=== PATIENT | male | born 1955 | race Caucasian/White ===

== ENCOUNTER 2017-04-06 10:56 | Outpatient (CLI) | payer OTHER ==
[2017-04-06 12:11] LABS: Hematocrit 49.6 % (42.0-52.0); Mean Platelet Volume 8.8 fL (7.4-10.4); Red Blood Cell (RBC) Count 4.98 mill/uL (4.70-6.10); White Blood Cell (WBC) Count 12.9 thou/uL (4.8-10.8)
[2017-04-06 12:17] LABS: PTT 29.1 SEC (22.9-36.1); Prothrombin Time 12.7 SEC (12.0-14.7)
[2017-04-06 12:49] LABS: Anion Gap 13 mmol/L (10-20); BUN (Urea Nitrogen) 13 mg/dL (8.4-25.7); Calc. Creatinine Clearance 0 mL/min (70-130); Calcium 9.9 mg/dL (7.8-10.44); Carbon Dioxide 27 mmol/L (23-31); Chloride 106 mmol/L (98-107); Estimated GFR-MDRD Greater than 90
[2017-04-06 13:01] LABS: Bilirubin Negative (Negative); Blood, Urine Negative (Negative); Glucose, Urine (Dipstick) Negative (Negative); Ketone, Urine Negative (Negative); Nitrite Negative (Negative); Protein, Urine (Dipstick) Negative (Neg-Trace); Urobilinogen 0.2 mg/dL (0.2-1.0)
[2017-04-06 13:18] LABS: Bacteria/HPF None Seen HPF (None Seen); Hyaline Casts/LPF 0-3 HYALINE CAST LPF (0-3 Hyaline); RBC/HPF 0-3 HPF (0-3); Squamous Epithelial None Seen HPF (0-3); WBC/HPF 0-3 HPF (0-3)
== END 2017-04-06 10:57 | disposition home or self-care (01) ==
LOC: LABBT 10:56
PROVIDERS: ATTEND Urology
DX: Z01.818 Encounter for other preprocedural examination (principal); N20.0 Calculus of kidney
CPT/HCPCS: 80048; 81001; 85027; 85610; 85730; 87086

== ENCOUNTER 2017-04-18 10:30 | Day surgery (SDC) | payer OTHER ==
[2017-04-06 11:13] VITALS: BMI 19.3
[2017-04-18] MEDS ORDERED: Levofloxacin 500 mg/D5W 100 ml Premix Bag ONE (12:18)
[2017-04-18] MEDS ORDERED: Iothalamate Meglumine 60% 50 ML VIAL FS ONE (12:22)
[2017-04-18] MEDS ORDERED: Fentanyl 100 MCG/2 ML VIAL ONE (13:32)
[2017-04-18] MEDS ORDERED: Midazolam HCl 2 mg/2 ml Vial ONE (13:32)
[2017-04-18] MEDS ORDERED: Phenazopyridine HCl 97.5 MG TABLET ONE (15:00)
[2017-04-18] MEDS ORDERED: Lidocaine 1% PF 5 ML VIAL ONE (15:15)
[2017-04-18] MEDS ORDERED: Ondansetron HCl/PF 4 MG/2 ML Vial ONE (15:15)
[2017-04-18] MEDS ORDERED: PHENYLEPHRINE-NS 100 MCG/ML 10 ML SYRINGE ONE (15:15)
[2017-04-18] MEDS ORDERED: Dexamethasone 20 MG/5 ML VIAL ONE (15:15)
[2017-04-18] MEDS ORDERED: Propofol 200 MG/20 ML VIAL ONE (15:15)
[2017-04-18] MEDS ORDERED: Hydrocortisone Sod Succ/PF 100 mg/2 ml Vial ONE (15:15)
[2017-04-18] MEDS ORDERED: Ketorolac Tromethamine 30 MG/ML VIAL ONE (15:15)
--- NOTE | 2017-04-18 15:36 | RAD ---
RETROGRADE UROGRAM: Date: 04-18-17 History: Ureteroscopy. History of renal calculi. FINDINGS/IMPRESSION: Single AP fluoroscopic image of the abdomen is provided. A left ureteral stent is noted in place with the proximal portion overlying the expected location of the left renal collecting system and distal portion overlying the expected location of the urinary bladder. No suspicious calcifications are seen on this fluoroscopic image. Surgical clips overlie the right upper quadrant. Correlation with intrao perative findings is recommended. POS: LORNA
[2017-04-18] MEDS ORDERED: HYDROcodone/Acetaminophen 5/325 mg Tablet ONE (16:33)
--- NOTE | 2017-04-18 19:38 | OP ---
DATE OF PROCEDURE: 04/18/2017 SERVICE: Urology. SURGEON: Jaret Fuentes M.D. POSTOPERATIVE DIAGNOSIS: Left renal stone. POSTOPERATIVE DIAGNOSIS: Left renal stone. PROCEDURE PERFORMED: Cystoscopy with left ureteroscopy, laser lithotripsy of stone, basket extractio n of stone, placement of a 6 x 26 double-J stent on the left. INDICATIONS FOR PROCEDURE: Mr. Pelaez is a 61-year-old white male with a history of nephrolithiasis. On CT, he has a nonobstructing 6 mm and 3 mm left renal stone. The 6 mm which would likely cause di fficulty with stone passage as such, he elected for prophylactic removal. Even though he is asymptom at at this time, risks and benefits of ureteroscopy were discussed and he has agreed to proceed for flores. DESCRIPTION OF PROCEDURE: After identification of his armband and verification of consent, the patie tammy was brought back to the operating room where he underwent general anesthesia with an LMA. He was then placed in dorsal lithotomy position and prepped and draped in usual sterile fashion. After appr opriate time out, lubricated 22-Irish rigid cystoscope was introduced per urethra into the bladder. Attention was turned to the left ureteral orifice which was cannulated with a 0.035 sensor wire up t o the level of the renal pelvis. The cystoscope was then removed leaving the sensor wire in place as a safety wire. A dual-lumen catheter was then placed over the sensor wire into the proximal ureter. A second Amplatz Super Stiff wire was then brought into the second lumen up to the level of the lucila al pelvis and then the dual lumen removed. The sensor wire was secured to the drapes as a safety wir e and an 11/13 x 46 cm ureteral access sheath was advanced over the Amplatz Super Stiff wire up to th e level of the proximal ureter. The inner cannula and the Super Stiff wire were then removed leaving the outer sheath and the sensor wire in place. A flexible digital ureteroscope was then passed thro ugh the ureteral access sheath to the level of the renal pelvis. A full pyeloscopy was performed and the stone could not be identified. On fluoroscopy, it appeared the stone was in the upper pole and under careful evaluation, there appeared to be a fairly narrow infundibulum in the upper pole leading to a small axel which was found to contain the stones in question. A 200 micron laser fiber was th en used to fragment the stone into small pieces and a 1.9 Irish 0 tip nitinol basket used to grasp t he fragments and bring them out for stone extraction. The remaining pieces were all around the 1 mm range or less. These were too small to grab with the basket and I felt that these should pass withou t much difficulty. A full pyeloscopy was performed that there did not appear to be any other signifi cant fragments of concern. As such, I felt this was reasonable for leaving a pullback ureteroscopy w as employed and no additional stones were found within the ureter. The ureteroscope and sheath were then removed and the rigid cystoscope was backloaded over the sensor wire back into the bladder. A 6 x 26 double-J stent was advanced over the sensor wire up to the level of the renal pelvis. The wire was then removed leaving a good curl in the pelvis and good curl in the bladder. The bladder was th en emptied and the cystoscope removed. The patient then awakened and taken to PACU for recovery in s table condition. COMPLICATIONS: None. ESTIMATED BLOOD LOSS: Minimal. RETAINED TUBES AND DRAINS: A 6 x 26 double-J stent on the left. SPECIMENS: Stone for stone analysis. DISPOSITION: The patient will be discharged home and follow up with me in approximately 1 week for c ystoscopy stent removal.
== END 2017-04-18 17:06 | disposition home or self-care (01) ==
LOC: SDC 10:30
PROVIDERS: ATTEND Urology
PROC: 0TF48ZZ Fragmentation in Left Kidney Pelvis, Via Natural or Artificial Opening Endoscopic (ICD-10-PCS; principal; 2017-04-18)
PROC: 0T778DZ Dilation of Left Ureter with Intraluminal Device, Via Natural or Artificial Opening Endoscopic (ICD-10-PCS; principal; 2017-04-18)
DX: N20.0 Calculus of kidney (principal); I10 Essential (primary) hypertension; I25.10 Atherosclerotic heart disease of native coronary artery without angina pectoris; L63.0 Alopecia (capitis) totalis; Z79.82 Long term (current) use of aspirin; Z79.899 Other long term (current) drug therapy; Z98.52 Vasectomy status; Z95.818 Presence of other cardiac implants and grafts; Z90.89 Acquired absence of other organs; Z90.49 Acquired absence of other specified parts of digestive tract; Z98.890 Other specified postprocedural states; Z87.442 Personal history of urinary calculi
CPT/HCPCS: 74420; 82365; 88300; C1758; C1769; J1100; J1720; J1885; J1956; J2001; J2250; J2405; J2704; J3010; Q9961

== ENCOUNTER 2017-06-14 09:20 | Outpatient (CLI) | payer OTHER | END 2017-06-14 09:21 | disposition home or self-care (01) | LOC: BICULT 09:20 | PROVIDERS: ATTEND Urology | DX: N20.0 Calculus of kidney (principal); N28.1 Cyst of kidney, acquired | CPT/HCPCS: 76770 ==

== ENCOUNTER 2020-01-10 01:54 | Emergency (ER) | payer MEDICARE, OTHER ==
[2020-01-10] MEDS ORDERED: Tranexamic Acid 1,000 MG/10 ML VIAL ONE (02:06)
[2020-01-10] MEDS ORDERED: Lidocaine 1% w/Epinephrine 1:100K 20 ML VIAL ONE (02:06)
== END 2020-01-10 02:55 | disposition home or self-care (01) ==
LOC: ERS 01:54
DX: L76.22 Postprocedural hemorrhage of skin and subcutaneous tissue following other procedure (principal); I10 Essential (primary) hypertension; Z79.82 Long term (current) use of aspirin; Z79.899 Other long term (current) drug therapy
CPT/HCPCS: 64450

== ENCOUNTER 2020-08-26 12:53 | Outpatient (CLI) | payer MEDICARE, OTHER ==
[2020-08-26] MEDS ORDERED: MD-Gastroview 120 ML BOT ONE (13:57)
== END 2020-08-26 12:54 | disposition home or self-care (01) ==
LOC: RAD 12:53
PROVIDERS: ATTEND Surgery
DX: K63.2 Fistula of intestine (principal)
CPT/HCPCS: 74280; Q9963

== ENCOUNTER 2020-09-30 10:19 | Outpatient (CLI) | payer MEDICARE, OTHER ==
[2020-09-30 11:15] LABS: #Monocytes 0.7 10x3/uL (0.0-1.1); #Neutrophils 12.2 10x3/uL (1.5-8.4); %Basophils 0.2 % (0.0-2.0); %Eosinophils 0.1 % (0.0-6.0); %Lymphocytes 6.5 % (18.0-47.0); %Monocytes 4.8 % (0.0-10.0); %Neutrophils 85.7 % (40.0-75.0); Hemoglobin 13.1 g/dL (13.5-17.5); Mean Corpuscular HGB CONC 31.3 g/dL (32.0-36.0); Mean Corpuscular Hemoglobin 28.6 pg (27.0-33.0); Mean Corpuscular Volume 91.3 fl (81.2-95.1); Mean Platelet Volume 9.8 fl (7.4-10.4); Platelet Count 246 10x3/uL (150-450); Red Blood Cell (RBC) Count 4.58 10x6/uL (4.32-5.72); White Blood Cell (WBC) Count 14.3 10x3/uL (3.5-10.5)
[2020-09-30 11:33] LABS: ALT (SGPT) 39 U/L (8-55); AST (SGOT) 32 U/L (5-34); Alkaline Phosphatase 77 U/L (40-110); Anion Gap 15 mmol/L (10-20); BUN (Urea Nitrogen) 22 mg/dL (8.4-25.7); Bilirubin, Total 0.8 mg/dL (0.2-1.2); Calc. Creatinine Clearance 0 mL/min (70-130); Calcium 9.5 mg/dL (7.8-10.44); Carbon Dioxide 23 mmol/L (23-31); Chloride 105 mmol/L (98-107); Globulin 2.4 g/dL (2.4-3.5); Glucose 98 mg/dL (80-115); Potassium 4.7 mmol/L (3.5-5.1); Protein, Total 6.4 g/dL (5.8-8.1); Sodium 138 mmol/L (136-145)
[2020-09-30 14:26] LABS: Hemoglobin A1c 5.4 % (4.0-6.0)
== END 2020-09-30 10:20 | disposition home or self-care (01) ==
LOC: LABBT 10:19
PROVIDERS: ATTEND Surgery
DX: Z01.818 Encounter for other preprocedural examination (principal); K60.4 Rectal fistula
CPT/HCPCS: 80053; 83036; 85025; 93005; 93010

== ENCOUNTER 2020-09-30 10:30 | Inpatient (IN) | payer MEDICARE, OTHER ==
[2020-10-05] MEDS ORDERED: cefOXitin Sodium/Dextrose 2 GM/50 ML BAG ONE ×2 (06:34→09:45)
[2020-10-05] MEDS ORDERED: Fentanyl 100 MCG/2 ML VIAL ONE ×5 (06:39→13:17)
[2020-10-05] MEDS ORDERED: Midazolam HCl 2 mg/2 ml Vial ONE (06:39)
[2020-10-05] MEDS ORDERED: Lidocaine 1% (PF) 30 ML VIAL ONE (06:40)
[2020-10-05] MEDS ORDERED: Lidocaine 2% Jelly 5 ML TUBE ONE (06:40)
[2020-10-05] MEDS ORDERED: Neomycin-Polymyxin 1 ML AMP ONE (06:47)
[2020-10-05] MEDS ORDERED: Bupivacaine HCl 0.5%/Epinephrine 1:200,000/PF 30 ml Vial ONE (07:53)
[2020-10-05] MEDS ORDERED: PROPOFOL 200 MG/20 ML VIAL ONE (07:53)
[2020-10-05] MEDS ORDERED: Rocuronium Bromide 10 MG/ML (10ML VIAL) ONE (07:53)
[2020-10-05] MEDS ORDERED: Ondansetron PF 4 MG/2 ML Vial ONE (07:53)
[2020-10-05] MEDS ORDERED: Lidocaine 1% PF 5 ML VIAL ONE (07:53)
[2020-10-05] MEDS ORDERED: ePHEDrine Sulfate 50 MG/10 ML VIAL ONE (07:53)
[2020-10-05] MEDS ORDERED: Glycopyrrolate 0.2 MG/ML 5 ML SYRINGE ONE (07:53)
[2020-10-05] MEDS ORDERED: Ondansetron HCl/PF 4 MG/2 ML Vial IVP PRN (10:46)
[2020-10-05] MEDS ORDERED: Promethazine HCl 25 MG/ML VIAL IM PRN ×2 (10:46→10:50)
[2020-10-05] MEDS ORDERED: Promethazine HCl 25 MG/ML VIAL IVPB PRN (10:46)
[2020-10-05] MEDS ORDERED: Ondansetron PF 4 MG/2 ML Vial IVP PRN (10:50)
[2020-10-05] MEDS ORDERED: hydrALAZINE 20 MG/ML VIAL SLOW IVP PRN (10:50)
[2020-10-05] MEDS ORDERED: metroNIDAZOLE 500 MG/100 ML BAG ONE (11:08)
[2020-10-05] MEDS ORDERED: Ketorolac Tromethamine 30 MG/ML VIAL IVP SCH (12:00)
[2020-10-05] MEDS ORDERED: Morphine 10 MG/ML VIAL SLOW IVP PRN (12:18)
[2020-10-05] MEDS ORDERED: Morphine 4 MG/ML VIAL ONE ×2 (13:17→17:30)
[2020-10-05] MEDS ORDERED: Ketorolac Tromethamine 30 MG/ML VIAL ONE (14:37)
[2020-10-05] MEDS: Sodium Chloride 0.9% 1,000 ML IV SCH ×2 (20:10→21:15)
[2020-10-05] MEDS: metroNIDAZOLE 500 MG in Premix Bag 1 BAG IVPB SCH ×2 (20:15→21:13)
[2020-10-05] MEDS: CEFAZOLIN 2 GM in Premix Bag 1 BAG IVPB SCH (20:30)
[2020-10-05] MEDS: Hydrocortisone Sod Succ/PF 100 mg/2 ml Vial IVP SCH (21:12)
[2020-10-05] MEDS: Famotidine 20 MG TAB PO SCH (21:14)
[2020-10-05] MEDS: Famotidine/PF 20 mg/2ml Vial SLOW IVP SCH (21:15)
[2020-10-05] MEDS: Morphine 4 MG/ML VIAL SLOW IVP PRN (21:20)
[2020-10-05] MEDS: Ketorolac Tromethamine 30 MG/ML VIAL IVP SCH (21:36)
[2020-10-06] MEDS: CEFAZOLIN 2 GM in Premix Bag 1 BAG IVPB SCH ×3 (01:54→08:59)
[2020-10-06] MEDS: metroNIDAZOLE 500 MG in Premix Bag 1 BAG IVPB SCH (01:54)
[2020-10-06 03:07] VITALS: BMI 19.3
[2020-10-06] MEDS: Ketorolac Tromethamine 30 MG/ML VIAL IVP SCH ×4 (03:08→21:18)
[2020-10-06] MEDS: Sodium Chloride 0.9% 1,000 ML IV SCH ×2 (04:59→15:25)
[2020-10-06] MEDS: Hydrocortisone Sod Succ/PF 100 mg/2 ml Vial IVP SCH ×3 (05:41→21:19)
[2020-10-06 05:50] LABS: #Lymphocytes 0.8 thou/uL (1.20-3.40); #Monocytes 1.2 thou/uL (0.11-0.59); %Basophils 0.2 % (0.0-1.0); %Eosinophils 0.1 % (0.0-10.0); %Lymphocytes 3.9 % (21.0-51.0); %Monocytes 5.8 % (0.0-10.0); %Neutrophils 90.1 % (42.0-75.0); Hemoglobin 11.3 g/dL (14.0-18.0); Mean Corpuscular HGB CONC 31.5 g/dL (32.0-36.0); Mean Corpuscular Hemoglobin 29.4 pg (27.0-31.0); Mean Corpuscular Volume 93.1 fL (78.0-98.0); Mean Platelet Volume 7.7 fL (7.4-10.4); Platelet Count 180 thou/uL (130-400); RBC Distribution Width 15.8 % (11.5-14.5); Red Blood Cell (RBC) Count 3.86 mill/uL (4.70-6.10); White Blood Cell (WBC) Count 19.9 thou/uL (4.8-10.8)
[2020-10-06 06:14] LABS: Anion Gap 15 mmol/L (10-20); BUN (Urea Nitrogen) 28 mg/dL (8.4-25.7); Calc. Creatinine Clearance 54 mL/min (70-130); Calcium 7.1 mg/dL (7.8-10.44); Carbon Dioxide 15 mmol/L (23-31); Chloride 114 mmol/L (98-107); Glucose 79 mg/dL (80-115); Potassium 4.3 mmol/L (3.5-5.1); Sodium 140 mmol/L (136-145)
[2020-10-06] MEDS: Amiodarone 200 MG TAB PO SCH (08:58)
[2020-10-06] MEDS: Ezetimibe 10 MG TAB PO SCH (08:58)
[2020-10-06] MEDS: Famotidine/PF 20 mg/2ml Vial SLOW IVP SCH ×2 (08:58→21:18)
[2020-10-06] MEDS: Carvedilol 3.125 MG TAB PO SCH ×2 (09:04→18:10)
[2020-10-06] MEDS ORDERED: Acetaminophen 325 MG TAB PO PRN (13:31)
[2020-10-06] MEDS: Enoxaparin Sodium 40 MG/0.4 ML SYRINGE SC SCH (13:53)
[2020-10-06] MEDS: Famotidine 20 MG TAB PO SCH ×2 (13:54→21:19)
[2020-10-06] MEDS: Morphine 4 MG/ML VIAL SLOW IVP PRN (16:41)
[2020-10-06] MEDS: Acetaminophen 325 MG TAB PO PRN (18:04)
[2020-10-06] MEDS ORDERED: Carvedilol 3.125 MG TAB PO SCH (18:15)
[2020-10-07] MEDS: Sodium Chloride 0.9% 1,000 ML IV SCH ×5 (01:41→20:50)
[2020-10-07] MEDS: Ketorolac Tromethamine 30 MG/ML VIAL IVP SCH ×4 (05:11→20:50)
[2020-10-07] MEDS: Hydrocortisone Sod Succ/PF 100 mg/2 ml Vial IVP SCH (05:12)
[2020-10-07 06:43] LABS: #Lymphocytes 0.6 thou/uL (1.20-3.40); #Monocytes 0.7 thou/uL (0.11-0.59); %Basophils 0.1 % (0.0-1.0); %Lymphocytes 3.3 % (21.0-51.0); %Monocytes 4.2 % (0.0-10.0); %Neutrophils 92.4 % (42.0-75.0); Hemoglobin 9.6 g/dL (14.0-18.0); Mean Corpuscular HGB CONC 32.5 g/dL (32.0-36.0); Mean Corpuscular Hemoglobin 30.5 pg (27.0-31.0); Mean Corpuscular Volume 93.8 fL (78.0-98.0); Mean Platelet Volume 7.8 fL (7.4-10.4); Platelet Count 161 thou/uL (130-400); RBC Distribution Width 15.8 % (11.5-14.5); Red Blood Cell (RBC) Count 3.14 mill/uL (4.70-6.10); White Blood Cell (WBC) Count 17.3 thou/uL (4.8-10.8)
[2020-10-07 07:04] LABS: ALT (SGPT) 32 U/L (8-55); AST (SGOT) 37 U/L (5-34); Albumin 2.6 g/dL (3.4-4.8); Alkaline Phosphatase 54 U/L (40-110); Anion Gap 14 mmol/L (10-20); BUN (Urea Nitrogen) 25 mg/dL (8.4-25.7); Bilirubin, Total 0.5 mg/dL (0.2-1.2); Calc. Creatinine Clearance 89 mL/min (70-130); Calcium 6.8 mg/dL (7.8-10.44); Carbon Dioxide 16 mmol/L (23-31); Chloride 115 mmol/L (98-107); Glucose 71 mg/dL (80-115); Protein, Total 4.6 g/dL (5.8-8.1); Sodium 141 mmol/L (136-145)
[2020-10-07] MEDS: Ezetimibe 10 MG TAB PO SCH ×2 (09:41→09:45)
[2020-10-07] MEDS: Carvedilol 3.125 MG TAB PO SCH ×2 (09:41→17:49)
[2020-10-07] MEDS: Amiodarone 200 MG TAB PO SCH (09:41)
[2020-10-07] MEDS: Famotidine 20 MG TAB PO SCH ×2 (09:41→20:50)
[2020-10-07] MEDS: Enoxaparin Sodium 40 MG/0.4 ML SYRINGE SC SCH (09:41)
[2020-10-07] MEDS: Famotidine/PF 20 mg/2ml Vial SLOW IVP SCH ×2 (09:42→20:48)
[2020-10-07] MEDS: Acetaminophen 325 MG TAB PO PRN ×2 (12:58→21:10)
[2020-10-07] MEDS: Hydrocortisone 10 mg Tablet PO SCH (20:50)
[2020-10-07] MEDS ORDERED: Hydrocortisone 10 mg Tablet PO SCH (21:00)
[2020-10-08] MEDS: Ketorolac Tromethamine 30 MG/ML VIAL IVP SCH ×4 (02:42→20:38)
[2020-10-08] MEDS: Amiodarone 200 MG TAB PO SCH (09:05)
[2020-10-08] MEDS: Carvedilol 3.125 MG TAB PO SCH ×2 (09:05→17:51)
[2020-10-08] MEDS: Ezetimibe 10 MG TAB PO SCH (09:05)
[2020-10-08] MEDS: Hydrocortisone 10 mg Tablet PO SCH (09:05)
[2020-10-08] MEDS: Famotidine 20 MG TAB PO SCH ×2 (09:05→20:38)
[2020-10-08] MEDS: Famotidine/PF 20 mg/2ml Vial SLOW IVP SCH ×2 (09:06→20:38)
[2020-10-08] MEDS: Enoxaparin Sodium 40 MG/0.4 ML SYRINGE SC SCH (09:06)
[2020-10-08] MEDS: Acetaminophen 325 MG TAB PO PRN ×2 (10:55→20:37)
[2020-10-08] MEDS: Sodium Chloride 0.9% 1,000 ML IV SCH ×3 (10:56→23:24)
[2020-10-08] MEDS: predniSONE 20 MG TAB PO SCH (17:48)
[2020-10-08] MEDS: HYDROcodone/Acetaminophen 5/325 mg Tablet PO PRN (20:41)
[2020-10-08] MEDS ORDERED: Hydrocortisone Sod Succ/PF 100 mg/2 ml Vial IVP SCH (21:00)
[2020-10-09] MEDS: Acetaminophen 325 MG TAB PO PRN ×2 (03:52→22:05)
[2020-10-09] MEDS: HYDROcodone/Acetaminophen 5/325 mg Tablet PO PRN ×4 (05:12→13:45)
[2020-10-09 06:08] LABS: #Lymphocytes 0.5 thou/uL (1.20-3.40); #Monocytes 0.5 thou/uL (0.11-0.59); #Neutrophils 9.7 thou/uL (1.40-6.50); %Lymphocytes 4.4 % (21.0-51.0); %Monocytes 4.2 % (0.0-10.0); %Neutrophils 91.4 % (42.0-75.0); Hemoglobin 8.5 g/dL (14.0-18.0); Mean Corpuscular HGB CONC 32.1 g/dL (32.0-36.0); Mean Corpuscular Hemoglobin 29.7 pg (27.0-31.0); Mean Corpuscular Volume 92.6 fL (78.0-98.0); Platelet Count 221 thou/uL (130-400); RBC Distribution Width 15.9 % (11.5-14.5); Red Blood Cell (RBC) Count 2.86 mill/uL (4.70-6.10); White Blood Cell (WBC) Count 10.6 thou/uL (4.8-10.8)
[2020-10-09] MEDS: Ezetimibe 10 MG TAB PO SCH (07:38)
[2020-10-09] MEDS: predniSONE 20 MG TAB PO SCH ×2 (07:38→16:48)
[2020-10-09] MEDS: Famotidine 20 MG TAB PO SCH ×2 (07:38→22:01)
[2020-10-09] MEDS: Carvedilol 3.125 MG TAB PO SCH ×2 (07:38→16:48)
[2020-10-09] MEDS: Amiodarone 200 MG TAB PO SCH (07:38)
[2020-10-09] MEDS: Enoxaparin Sodium 40 MG/0.4 ML SYRINGE SC SCH (09:09)
[2020-10-09] MEDS: Famotidine/PF 20 mg/2ml Vial SLOW IVP SCH ×2 (09:09→20:19)
[2020-10-09] MEDS: diphenhydrAMINE 50 MG/ML VIAL IVP PRN (15:42)
[2020-10-09] MEDS: Sodium Chloride 0.9% 1,000 ML IV SCH (16:49)
[2020-10-10] MEDS: Sodium Chloride 0.9% 1,000 ML IV SCH ×2 (01:05→10:27)
[2020-10-10] MEDS: HYDROcodone/Acetaminophen 5/325 mg Tablet PO PRN (05:55)
[2020-10-10] MEDS: predniSONE 20 MG TAB PO SCH ×2 (05:57→15:49)
[2020-10-10] MEDS: Acetaminophen 325 MG TAB PO PRN (06:05)
[2020-10-10] MEDS: Amiodarone 200 MG TAB PO SCH (09:56)
[2020-10-10] MEDS: Carvedilol 3.125 MG TAB PO SCH ×2 (09:56→15:50)
[2020-10-10] MEDS: Ezetimibe 10 MG TAB PO SCH (09:56)
[2020-10-10] MEDS: Famotidine 20 MG TAB PO SCH (09:56)
[2020-10-10] MEDS: Famotidine/PF 20 mg/2ml Vial SLOW IVP SCH ×2 (09:57→20:43)
[2020-10-10] MEDS: Enoxaparin Sodium 40 MG/0.4 ML SYRINGE SC SCH (10:28)
[2020-10-10] MEDS ORDERED: Acetaminophen 500 MG TAB PO PRN ×2 (11:32)
[2020-10-10] MEDS: Acetaminophen 500 MG TAB PO PRN ×2 (15:48→20:42)
[2020-10-10] MEDS ORDERED: Calcium Carbonate 500 MG ChewTAB PO PRN (18:05)
[2020-10-10] MEDS: Calcium Carbonate 500 MG ChewTAB PO PRN (18:13)
[2020-10-11] MEDS: Famotidine 20 MG TAB PO SCH ×3 (01:03→21:04)
[2020-10-11] MEDS: Acetaminophen 500 MG TAB PO PRN ×4 (05:53→21:03)
[2020-10-11] MEDS: predniSONE 20 MG TAB PO SCH ×2 (05:53→16:28)
[2020-10-11] MEDS: Calcium Carbonate 500 MG ChewTAB PO PRN ×2 (08:13→14:27)
[2020-10-11] MEDS: Amiodarone 200 MG TAB PO SCH (08:13)
[2020-10-11] MEDS: Carvedilol 3.125 MG TAB PO SCH ×2 (08:14→16:28)
[2020-10-11] MEDS: Ezetimibe 10 MG TAB PO SCH (08:15)
[2020-10-11] MEDS: Famotidine/PF 20 mg/2ml Vial SLOW IVP SCH ×2 (08:15→23:08)
[2020-10-11] MEDS: Enoxaparin Sodium 40 MG/0.4 ML SYRINGE SC SCH (08:22)
[2020-10-11 10:21] LABS: Anisocytosis SLIGHT = 6-15 cells (100X) (0-5/hpf); Band 4 % (5-11); Elliptocytes SLIGHT = 2-5 cells (100X) (0-1/hpf); Hemoglobin 10.1 g/dL (14.0-18.0); Lymphocytes 3 % (21-51); MDiff Complete? YES; Mean Corpuscular HGB CONC 33.2 g/dL (32.0-36.0); Mean Corpuscular Hemoglobin 30.5 pg (27.0-31.0); Mean Corpuscular Volume 91.9 fL (78.0-98.0); Mean Platelet Volume 7.7 fL (7.4-10.4); Metamyelocyte 1 % (0-0); Monocytes 3 % (0-10); Myelocyte 1 % (0-0); Neutrophil 88 % (42-75); Platelet Count 266 thou/uL (130-400); Platelet Morphology Comment Appears Adequate; Polychromasia SLIGHT = 2-3 cells (100X) (0-2/hpf); RBC Distribution Width 16.2 % (11.5-14.5); Red Blood Cell (RBC) Count 3.32 mill/uL (4.70-6.10); White Blood Cell (WBC) Count 16.9 thou/uL (4.8-10.8)
[2020-10-11 11:26] LABS: Anion Gap 13 mmol/L (10-20); BUN (Urea Nitrogen) 17 mg/dL (8.4-25.7); Calc. Creatinine Clearance 95 mL/min (70-130); Calcium 8.4 mg/dL (7.8-10.44); Carbon Dioxide 20 mmol/L (23-31); Chloride 110 mmol/L (98-107); Glucose 200 mg/dL (80-115); Potassium 3.4 mmol/L (3.5-5.1); Sodium 140 mmol/L (136-145)
[2020-10-11] MEDS ORDERED: Aspirin 81 mg Enteric Coated Tablet PO SCH (13:15)
[2020-10-11] MEDS ORDERED: Potassium Chloride 20 MEQ TAB PO SCH (13:15)
[2020-10-12 05:36] LABS: Hemoglobin 9.1 g/dL (14.0-18.0); Mean Corpuscular HGB CONC 31.5 g/dL (32.0-36.0); Mean Platelet Volume 7.9 fL (7.4-10.4); Platelet Count 285 thou/uL (130-400); RBC Distribution Width 16.6 % (11.5-14.5); Red Blood Cell (RBC) Count 3.15 mill/uL (4.70-6.10); White Blood Cell (WBC) Count 17.3 thou/uL (4.8-10.8)
[2020-10-12 05:49] LABS: Potassium 3.7 mmol/L (3.5-5.1)
[2020-10-12] MEDS: predniSONE 20 MG TAB PO SCH ×2 (06:10→16:29)
[2020-10-12] MEDS: Acetaminophen 500 MG TAB PO PRN ×4 (06:10→20:51)
[2020-10-12] MEDS: Famotidine/PF 20 mg/2ml Vial SLOW IVP SCH ×2 (08:01→20:51)
[2020-10-12] MEDS: Enoxaparin Sodium 40 MG/0.4 ML SYRINGE SC SCH (08:12)
[2020-10-12] MEDS: Amiodarone 200 MG TAB PO SCH (08:13)
[2020-10-12] MEDS: Famotidine 20 MG TAB PO SCH ×2 (08:13→20:51)
[2020-10-12] MEDS: Carvedilol 3.125 MG TAB PO SCH ×2 (08:13→16:28)
[2020-10-12] MEDS: Ezetimibe 10 MG TAB PO SCH (08:13)
[2020-10-12] MEDS: Aspirin 81 mg Enteric Coated Tablet PO SCH (08:13)
[2020-10-12] MEDS ORDERED: Iopamidol 370 76% 50 ML VIAL FS ONE (08:51)
[2020-10-12] MEDS ORDERED: Iopamidol-370 76% 500 ML 1 ML ONE (08:51)
[2020-10-12] MEDS ORDERED: Piperacillin/Tazobactam 3.375 GM in Sodium Chloride 0.9% 100 ML IVPB SCH ×3 (12:00→21:00)
[2020-10-12] MEDS ORDERED: Vancomycin HCl 25 MG/ML Oral PO SCH ×3 (14:30→18:00)
[2020-10-12] MEDS ORDERED: Sodium Chloride 0.9% 1,000 ML IV SCH (15:15)
[2020-10-12] MEDS ORDERED: Furosemide 20 MG/2 ML VIAL SLOW IVP SCH (16:15)
[2020-10-12 18:25] LABS: Bacteria/HPF None Seen HPF (None Seen); Bilirubin Negative (Negative); Blood, Urine Negative (Negative); Clarity Clear (Clear); Glucose, Urine (Dipstick) Normal (Negative); Ketone, Urine Negative (Negative); Leukocyte Negative Leu/uL (Negative); Nitrite Negative (Negative); Protein, Urine (Dipstick) Negative (Neg-Trace); RBC/HPF None Seen HPF (0-3); Specific Gravity, Urine 1.035 (1.002-1.036); Squamous Epithelial 0-3 HPF (0-3); Urobilinogen Normal mg/dL (Less than 2); WBC/HPF 0-3 HPF (0-3)
[2020-10-12 18:28] LABS: Urine Culture Reflex No No
[2020-10-12] MEDS: Morphine 2 MG/ML VIAL SLOW IVP PRN (19:36)
[2020-10-13] MEDS: Morphine 4 MG/ML VIAL SLOW IVP PRN (00:24)
[2020-10-13] MEDS ORDERED: Benzonatate 100 MG CAP PO PRN (00:38)
[2020-10-13 05:36] LABS: Anion Gap 14 mmol/L (10-20); BUN (Urea Nitrogen) 15 mg/dL (8.4-25.7); Calc. Creatinine Clearance 98 mL/min (70-130); Calcium 8.1 mg/dL (7.8-10.44); Carbon Dioxide 23 mmol/L (23-31); Chloride 104 mmol/L (98-107); Glucose 115 mg/dL (80-115); Potassium 3.6 mmol/L (3.5-5.1); Sodium 137 mmol/L (136-145)
[2020-10-13 05:51] LABS: Mean Corpuscular Hemoglobin 28.4 pg (27.0-31.0); Mean Corpuscular Volume 91.5 fL (78.0-98.0); Mean Platelet Volume 7.8 fL (7.4-10.4); Platelet Count 309 thou/uL (130-400); RBC Distribution Width 17.1 % (11.5-14.5); Red Blood Cell (RBC) Count 3.51 mill/uL (4.70-6.10); White Blood Cell (WBC) Count 17.7 thou/uL (4.8-10.8)
[2020-10-13] MEDS: Acetaminophen 500 MG TAB PO PRN ×3 (05:59→20:42)
[2020-10-13] MEDS: predniSONE 20 MG TAB PO SCH ×2 (06:00→18:21)
[2020-10-13 06:11] LABS: Band 11 % (5-11); Lymphocytes 7 % (21-51); MDiff Complete? YES; Monocytes 1 % (0-10); Neutrophil 81 % (42-75)
[2020-10-13] MEDS: Ezetimibe 10 MG TAB PO SCH (08:58)
[2020-10-13] MEDS: Amiodarone 200 MG TAB PO SCH (08:58)
[2020-10-13] MEDS: Famotidine 20 MG TAB PO SCH ×2 (08:58→20:42)
[2020-10-13] MEDS: Aspirin 81 mg Enteric Coated Tablet PO SCH (08:59)
[2020-10-13] MEDS: fentaNYL 50 mcg/hour Patch TD SCH (08:59)
[2020-10-13] MEDS: Carvedilol 3.125 MG TAB PO SCH ×2 (08:59→18:21)
[2020-10-13] MEDS: Morphine 2 MG/ML VIAL SLOW IVP PRN (10:29)
[2020-10-13] MEDS: Famotidine/PF 20 mg/2ml Vial SLOW IVP SCH ×2 (10:36→20:43)
[2020-10-13] MEDS ORDERED: Sodium Bicarbonate 2.5 MEQ/5 ML VIAL ONE (10:53)
[2020-10-13] MEDS ORDERED: Fentanyl 100 MCG/2 ML VIAL ONE (10:53)
[2020-10-13] MEDS ORDERED: Midazolam HCl 2 mg/2 ml Vial ONE (10:53)
[2020-10-13 12:58] LABS: RBC Count-Automated (BF) 795665 /cu.mm
[2020-10-13 13:07] LABS: BF Color Red; Body Fluid Source Peritoneal Fluid; Clarity Cloudy/Turbid (Clear); Tube # EDTA; WBC/Nucleated-Auto (BF) Greater than 51000 uL
[2020-10-13 14:57] LABS: BF Segmented Neutrophils 78 %; Cell Count Non Hematic 20 %; Lymphocytes 2 %
[2020-10-13] MEDS: Enoxaparin Sodium 40 MG/0.4 ML SYRINGE SC SCH (16:02)
[2020-10-14] MEDS: Acetaminophen 500 MG TAB PO PRN ×3 (03:19→17:40)
[2020-10-14 06:04] LABS: Hemoglobin 9.5 g/dL (14.0-18.0); Mean Corpuscular HGB CONC 32.3 g/dL (32.0-36.0); Mean Corpuscular Hemoglobin 30.4 pg (27.0-31.0); Mean Platelet Volume 7.8 fL (7.4-10.4); Platelet Count 303 thou/uL (130-400); Red Blood Cell (RBC) Count 3.12 mill/uL (4.70-6.10); White Blood Cell (WBC) Count 12.9 thou/uL (4.8-10.8)
[2020-10-14 06:20] LABS: Anion Gap 12 mmol/L (10-20); BUN (Urea Nitrogen) 18 mg/dL (8.4-25.7); Calc. Creatinine Clearance 108 mL/min (70-130); Carbon Dioxide 23 mmol/L (23-31); Chloride 104 mmol/L (98-107); Glucose 111 mg/dL (80-115); Potassium 3.7 mmol/L (3.5-5.1); Sodium 135 mmol/L (136-145)
[2020-10-14 06:23] LABS: Band 5 % (5-11); Lymphocytes 6 % (21-51); MDiff Complete? YES; Metamyelocyte 2 % (0-0); Monocytes 7 % (0-10); Neutrophil 80 % (42-75)
[2020-10-14] MEDS: predniSONE 20 MG TAB PO SCH ×2 (06:38→15:56)
[2020-10-14] MEDS: Carvedilol 3.125 MG TAB PO SCH ×2 (08:39→15:57)
[2020-10-14] MEDS: Aspirin 81 mg Enteric Coated Tablet PO SCH (08:40)
[2020-10-14] MEDS: Amiodarone 200 MG TAB PO SCH (08:40)
[2020-10-14] MEDS: Famotidine 20 MG TAB PO SCH ×2 (08:40→22:08)
[2020-10-14] MEDS: Famotidine/PF 20 mg/2ml Vial SLOW IVP SCH ×2 (08:42→22:08)
[2020-10-14] MEDS: Ezetimibe 10 MG TAB PO SCH (08:46)
[2020-10-14] MEDS: Enoxaparin Sodium 40 MG/0.4 ML SYRINGE SC SCH ×2 (09:24→09:39)
[2020-10-14] MEDS: Morphine 2 MG/ML VIAL SLOW IVP PRN (09:41)
[2020-10-14] MEDS ORDERED: Piperacillin/Tazobactam 3.375 GM in Sodium Chloride 0.9% 100 ML IVPB SCH (10:30)
[2020-10-14] MEDS: Piperacillin/Tazobactam 3.375 GM in Sodium Chloride 0.9% 100 ML IVPB SCH ×2 (15:52→23:31)
[2020-10-14] MEDS ORDERED: Furosemide 20 MG/2 ML VIAL SLOW IVP SCH (16:30)
[2020-10-15] MEDS: Acetaminophen 500 MG TAB PO PRN ×4 (01:34→20:14)
[2020-10-15] MEDS: predniSONE 20 MG TAB PO SCH ×2 (06:28→16:58)
[2020-10-15] MEDS: Piperacillin/Tazobactam 3.375 GM in Sodium Chloride 0.9% 100 ML IVPB SCH ×2 (06:28→16:58)
[2020-10-15] MEDS: Famotidine 20 MG TAB PO SCH ×2 (08:41→20:14)
[2020-10-15] MEDS: Carvedilol 3.125 MG TAB PO SCH ×2 (08:41→17:00)
[2020-10-15] MEDS: Aspirin 81 mg Enteric Coated Tablet PO SCH (08:42)
[2020-10-15] MEDS: Enoxaparin Sodium 40 MG/0.4 ML SYRINGE SC SCH (08:42)
[2020-10-15] MEDS: Amiodarone 200 MG TAB PO SCH (08:42)
[2020-10-15] MEDS: Famotidine/PF 20 mg/2ml Vial SLOW IVP SCH ×2 (08:43→22:31)
[2020-10-15] MEDS ORDERED: Iopamidol 370 76% 100 ML VIAL ONE (09:27)
[2020-10-15] MEDS ORDERED: Iopamidol 370 76% 50 ML VIAL FS ONE (09:27)
[2020-10-15 11:45] LABS: #Lymphocytes 0.4 thou/uL (1.20-3.40); #Monocytes 0.6 thou/uL (0.11-0.59); #Neutrophils 15.5 thou/uL (1.40-6.50); %Eosinophils 0.1 % (0.0-10.0); %Lymphocytes 2.6 % (21.0-51.0); %Monocytes 3.7 % (0.0-10.0); %Neutrophils 93.6 % (42.0-75.0); Hemoglobin 11.3 g/dL (14.0-18.0); Mean Corpuscular HGB CONC 32.8 g/dL (32.0-36.0); Mean Corpuscular Hemoglobin 30.9 pg (27.0-31.0); Mean Corpuscular Volume 94.1 fL (78.0-98.0); Mean Platelet Volume 7.8 fL (7.4-10.4); Platelet Count 342 thou/uL (130-400); RBC Distribution Width 17.2 % (11.5-14.5); Red Blood Cell (RBC) Count 3.66 mill/uL (4.70-6.10); White Blood Cell (WBC) Count 16.6 thou/uL (4.8-10.8)
[2020-10-15] MEDS: Morphine 4 MG/ML VIAL SLOW IVP PRN (14:24)
[2020-10-15] MEDS ORDERED: Sodium Bicarbonate 2.5 MEQ/5 ML VIAL ONE (15:16)
[2020-10-15 17:23] LABS: RBC Count-Automated (BF) 225934 /cu.mm
[2020-10-15 17:25] LABS: WBC/Nucleated-Auto (BF) Greater than 51000 uL
[2020-10-15 17:26] LABS: BF Color Red; Body Fluid Source Abscess Fluid; Clarity Cloudy/Turbid (Clear); Tube # EDTA
[2020-10-15 18:30] LABS: BF Segmented Neutrophils 97 %; Cell Count Non Hematic 3 %
[2020-10-16] MEDS: diphenhydrAMINE 50 MG/ML VIAL IVP PRN ×2 (00:06→19:37)
[2020-10-16] MEDS: Piperacillin/Tazobactam 3.375 GM in Sodium Chloride 0.9% 100 ML IVPB SCH ×3 (00:08→15:14)
[2020-10-16] MEDS: Acetaminophen 500 MG TAB PO PRN ×4 (05:28→19:37)
[2020-10-16] MEDS: Carvedilol 3.125 MG TAB PO SCH ×2 (08:52→16:36)
[2020-10-16] MEDS: predniSONE 20 MG TAB PO SCH ×2 (08:52→16:36)
[2020-10-16] MEDS: Ezetimibe 10 MG TAB PO SCH (08:53)
[2020-10-16] MEDS: Enoxaparin Sodium 40 MG/0.4 ML SYRINGE SC SCH (08:53)
[2020-10-16] MEDS: Aspirin 81 mg Enteric Coated Tablet PO SCH (08:53)
[2020-10-16] MEDS: Famotidine 20 MG TAB PO SCH ×2 (08:53→21:18)
[2020-10-16] MEDS: Amiodarone 200 MG TAB PO SCH (08:53)
[2020-10-16] MEDS: Famotidine/PF 20 mg/2ml Vial SLOW IVP SCH ×2 (08:54→21:19)
[2020-10-16 10:29] LABS: #Eosinphils 0.1 thou/uL (0.0-0.7); #Lymphocytes 0.9 thou/uL (1.20-3.40); #Monocytes 0.9 thou/uL (0.11-0.59); #Neutrophils 11.8 thou/uL (1.40-6.50); %Basophils 0.1 % (0.0-1.0); %Eosinophils 0.4 % (0.0-10.0); %Lymphocytes 6.3 % (21.0-51.0); %Monocytes 6.3 % (0.0-10.0); %Neutrophils 86.9 % (42.0-75.0); Hemoglobin 9.6 g/dL (14.0-18.0); Mean Corpuscular HGB CONC 32.4 g/dL (32.0-36.0); Mean Corpuscular Hemoglobin 30.8 pg (27.0-31.0); Mean Corpuscular Volume 94.9 fL (78.0-98.0); Mean Platelet Volume 7.9 fL (7.4-10.4); Platelet Count 337 thou/uL (130-400); RBC Distribution Width 17.4 % (11.5-14.5); Red Blood Cell (RBC) Count 3.11 mill/uL (4.70-6.10); White Blood Cell (WBC) Count 13.6 thou/uL (4.8-10.8)
[2020-10-16] MEDS: fentaNYL 50 mcg/hour Patch TD SCH (11:26)
[2020-10-17] MEDS: Piperacillin/Tazobactam 3.375 GM in Sodium Chloride 0.9% 100 ML IVPB SCH ×4 (00:20→22:22)
[2020-10-17] MEDS: Acetaminophen 500 MG TAB PO PRN ×4 (05:36→22:21)
[2020-10-17 05:57] LABS: #Lymphocytes 0.5 thou/uL (1.20-3.40); #Monocytes 0.6 thou/uL (0.11-0.59); #Neutrophils 11.7 thou/uL (1.40-6.50); %Basophils 0.2 % (0.0-1.0); %Eosinophils 0.2 % (0.0-10.0); %Monocytes 4.8 % (0.0-10.0); %Neutrophils 90.7 % (42.0-75.0); Hemoglobin 9.4 g/dL (14.0-18.0); Mean Corpuscular HGB CONC 32.5 g/dL (32.0-36.0); Mean Corpuscular Hemoglobin 30.3 pg (27.0-31.0); Mean Corpuscular Volume 93.4 fL (78.0-98.0); Mean Platelet Volume 7.6 fL (7.4-10.4); Platelet Count 323 thou/uL (130-400); RBC Distribution Width 17.2 % (11.5-14.5); Red Blood Cell (RBC) Count 3.09 mill/uL (4.70-6.10); White Blood Cell (WBC) Count 12.9 thou/uL (4.8-10.8)
[2020-10-17] MEDS: predniSONE 20 MG TAB PO SCH ×2 (07:24→17:31)
[2020-10-17] MEDS ORDERED: Morphine 2 MG/ML VIAL SLOW IVP PRN (08:15)
[2020-10-17] MEDS ORDERED: Morphine 4 MG/ML VIAL SLOW IVP PRN (08:15)
[2020-10-17] MEDS ORDERED: Carvedilol 6.25 MG TAB PO SCH (09:45)
[2020-10-17] MEDS: Aspirin 81 mg Enteric Coated Tablet PO SCH (09:49)
[2020-10-17] MEDS: Enoxaparin Sodium 40 MG/0.4 ML SYRINGE SC SCH (09:49)
[2020-10-17] MEDS: Famotidine 20 MG TAB PO SCH ×2 (09:49→21:01)
[2020-10-17] MEDS: Amiodarone 200 MG TAB PO SCH (09:49)
[2020-10-17] MEDS: Famotidine/PF 20 mg/2ml Vial SLOW IVP SCH ×2 (09:51→23:44)
[2020-10-17] MEDS ORDERED: Tamsulosin HCl 0.4 MG CAP PO SCH (10:00)
[2020-10-17] MEDS: Carvedilol 6.25 MG TAB PO SCH (17:33)
[2020-10-17] MEDS ORDERED: diphenhydrAMINE 50 MG/ML VIAL IVP PRN (21:53)
[2020-10-17] MEDS: diphenhydrAMINE 25 MG CAP PO PRN (22:20)
[2020-10-18] MEDS: Acetaminophen 500 MG TAB PO PRN ×5 (02:31→20:53)
[2020-10-18] MEDS: Piperacillin/Tazobactam 3.375 GM in Sodium Chloride 0.9% 100 ML IVPB SCH ×3 (06:20→23:46)
[2020-10-18] MEDS: Carvedilol 6.25 MG TAB PO SCH ×2 (09:33→16:07)
[2020-10-18] MEDS: Famotidine 20 MG TAB PO SCH ×2 (09:33→20:53)
[2020-10-18] MEDS: predniSONE 5 MG TAB PO SCH ×2 (09:33→16:07)
[2020-10-18] MEDS: Aspirin 81 mg Enteric Coated Tablet PO SCH (09:33)
[2020-10-18] MEDS: Amiodarone 200 MG TAB PO SCH (09:34)
[2020-10-18] MEDS: Tamsulosin HCl 0.4 MG CAP PO SCH (09:34)
[2020-10-18] MEDS: Enoxaparin Sodium 40 MG/0.4 ML SYRINGE SC SCH (09:35)
[2020-10-18] MEDS: Famotidine/PF 20 mg/2ml Vial SLOW IVP SCH ×2 (09:35→20:54)
[2020-10-18] MEDS: Nystatin 500,000 UNITS/5 ML UDCUP SSW SCH ×3 (12:40→20:53)
[2020-10-18 13:06] LABS: Hemoglobin 10.5 g/dL (14.0-18.0); Mean Corpuscular HGB CONC 30.2 g/dL (32.0-36.0); Mean Corpuscular Volume 95.8 fL (78.0-98.0); Mean Platelet Volume 7.5 fL (7.4-10.4); Platelet Count 432 thou/uL (130-400); RBC Distribution Width 17.1 % (11.5-14.5); Red Blood Cell (RBC) Count 3.63 mill/uL (4.70-6.10)
[2020-10-18 13:25] LABS: Anisocytosis SLIGHT = 6-15 cells (100X) (0-5/hpf); Band 5 % (5-11); Lymphocytes 6 % (21-51); MDiff Complete? YES; Metamyelocyte 1 % (0-0); Monocytes 5 % (0-10); Myelocyte 2 % (0-0); Neutrophil 81 % (42-75); Ovalocytes SLIGHT = 2-5 cells (100X) (0-1/hpf); Platelet Morphology Comment Appears Increased; Polychromasia SLIGHT = 2-3 cells (100X) (0-2/hpf)
[2020-10-18] MEDS: diphenhydrAMINE 25 MG CAP PO PRN (20:53)
[2020-10-19] MEDS: Acetaminophen 500 MG TAB PO PRN ×3 (05:58→22:26)
[2020-10-19] MEDS: Piperacillin/Tazobactam 3.375 GM in Sodium Chloride 0.9% 100 ML IVPB SCH (05:59)
[2020-10-19 06:03] LABS: Anion Gap 9 mmol/L (10-20); BUN (Urea Nitrogen) 15 mg/dL (8.4-25.7); Band 15 % (5-11); Calc. Creatinine Clearance 106 mL/min (70-130); Calcium 7.8 mg/dL (7.8-10.44); Carbon Dioxide 28 mmol/L (23-31); Chloride 107 mmol/L (98-107); Glucose 112 mg/dL (80-115); Hemoglobin 9.3 g/dL (14.0-18.0); Lymphocytes 4 % (21-51); MDiff Complete? YES; Mean Corpuscular HGB CONC 30.3 g/dL (32.0-36.0); Mean Corpuscular Hemoglobin 28.7 pg (27.0-31.0); Mean Corpuscular Volume 94.8 fL (78.0-98.0); Mean Platelet Volume 7.4 fL (7.4-10.4); Metamyelocyte 3 % (0-0); Monocytes 10 % (0-10); Myelocyte 1 % (0-0); Neutrophil 67 % (42-75); Platelet Count 381 thou/uL (130-400); Platelet Morphology Comment Appears Adequate; Potassium 3.5 mmol/L (3.5-5.1); Red Blood Cell (RBC) Count 3.25 mill/uL (4.70-6.10); Sodium 140 mmol/L (136-145); White Blood Cell (WBC) Count 12.6 thou/uL (4.8-10.8)
[2020-10-19] MEDS: Famotidine 20 MG TAB PO SCH ×2 (08:20→20:13)
[2020-10-19] MEDS: predniSONE 20 MG TAB PO SCH (08:20)
[2020-10-19] MEDS: Tamsulosin HCl 0.4 MG CAP PO SCH (08:20)
[2020-10-19] MEDS: Aspirin 81 mg Enteric Coated Tablet PO SCH (08:21)
[2020-10-19] MEDS: Amiodarone 200 MG TAB PO SCH (08:21)
[2020-10-19] MEDS: fentaNYL 50 mcg/hour Patch TD SCH (08:21)
[2020-10-19] MEDS: Enoxaparin Sodium 40 MG/0.4 ML SYRINGE SC SCH (08:21)
[2020-10-19] MEDS: Nystatin 500,000 UNITS/5 ML UDCUP SSW SCH ×4 (08:21→20:14)
[2020-10-19] MEDS: Carvedilol 6.25 MG TAB PO SCH ×2 (08:21→17:03)
[2020-10-19] MEDS: Famotidine/PF 20 mg/2ml Vial SLOW IVP SCH ×2 (08:23→20:15)
[2020-10-19] MEDS: Ezetimibe 10 MG TAB PO SCH (09:27)
[2020-10-19] MEDS: predniSONE 5 MG TAB PO SCH (17:03)
[2020-10-19] MEDS: Morphine IR Tab 15 MG TAB PO PRN (20:14)
[2020-10-19] MEDS: diphenhydrAMINE 25 MG CAP PO PRN (22:26)
[2020-10-20 05:57] LABS: Band 4 % (5-11); Hemoglobin 9.6 g/dL (14.0-18.0); Hypochromia SLIGHT = 6-15 cells (100X) (0-5/hpf); Lymphocytes 11 % (21-51); MDiff Complete? YES; Mean Corpuscular HGB CONC 31.2 g/dL (32.0-36.0); Mean Corpuscular Hemoglobin 29.5 pg (27.0-31.0); Mean Corpuscular Volume 94.4 fL (78.0-98.0); Mean Platelet Volume 7.2 fL (7.4-10.4); Monocytes 14 % (0-10); Neutrophil 71 % (42-75); Platelet Count 375 thou/uL (130-400); Platelet Morphology Comment Appears Adequate; RBC Distribution Width 17.4 % (11.5-14.5); Red Blood Cell (RBC) Count 3.26 mill/uL (4.70-6.10); White Blood Cell (WBC) Count 13.1 thou/uL (4.8-10.8)
[2020-10-20 06:08] LABS: Anion Gap 6 mmol/L (10-20); BUN (Urea Nitrogen) 12 mg/dL (8.4-25.7); Calc. Creatinine Clearance 104 mL/min (70-130); Calcium 7.8 mg/dL (7.8-10.44); Carbon Dioxide 30 mmol/L (23-31); Chloride 107 mmol/L (98-107); Glucose 84 mg/dL (80-115); Potassium 3.2 mmol/L (3.5-5.1); Sodium 140 mmol/L (136-145)
[2020-10-20] MEDS: Acetaminophen 500 MG TAB PO PRN ×2 (06:20→17:44)
[2020-10-20] MEDS ORDERED: Iopamidol 370 76% 50 ML VIAL FS ONE (08:59)
[2020-10-20] MEDS ORDERED: Iopamidol 370 76% 100 ML VIAL ONE (08:59)
[2020-10-20] MEDS: Famotidine 20 MG TAB PO SCH (09:25)
[2020-10-20] MEDS: predniSONE 20 MG TAB PO SCH (09:26)
[2020-10-20] MEDS: Aspirin 81 mg Enteric Coated Tablet PO SCH (09:26)
[2020-10-20] MEDS: Amiodarone 200 MG TAB PO SCH (09:30)
[2020-10-20] MEDS: Tamsulosin HCl 0.4 MG CAP PO SCH (09:31)
[2020-10-20] MEDS: Carvedilol 6.25 MG TAB PO SCH ×2 (09:31→18:13)
[2020-10-20] MEDS: Famotidine/PF 20 mg/2ml Vial SLOW IVP SCH (09:34)
[2020-10-20] MEDS: Enoxaparin Sodium 40 MG/0.4 ML SYRINGE SC SCH (09:35)
[2020-10-20] MEDS: Morphine IR Tab 15 MG TAB PO PRN (10:41)
[2020-10-20] MEDS: Nystatin 500,000 UNITS/5 ML UDCUP SSW SCH ×3 (11:25→18:44)
[2020-10-20] MEDS ORDERED: Piperacillin/Tazobactam 3.375 GM in Sodium Chloride 0.9% 100 ML IVPB SCH ×3 (13:15→19:00)
[2020-10-20 16:24] VITALS: BP 126/73; TEMP 98.1
[2020-10-20] MEDS: predniSONE 5 MG TAB PO SCH (18:13)
== END 2020-10-20 18:44 | disposition home health service (06) | DRG 329 ==
LOC: SURG A 10-05 05:56 → SJJU 10-05 18:13
PROVIDERS: ADMIT Surgery; ATTEND Internal Medicine
PROC: 0DBP0ZZ Excision of Rectum, Open Approach (ICD-10-PCS; principal; 2020-10-05)
PROC: 0D1B0Z4 Bypass Ileum to Cutaneous, Open Approach (ICD-10-PCS; 2020-10-05)
PROC: 0T9B70Z Drainage of Bladder with Drainage Device, Via Natural or Artificial Opening (ICD-10-PCS; 2020-10-05)
PROC: 0W9J3ZX Drainage of Pelvic Cavity, Percutaneous Approach, Diagnostic (ICD-10-PCS; 2020-10-13)
PROC: 0W9J30Z Drainage of Pelvic Cavity with Drainage Device, Percutaneous Approach (ICD-10-PCS; 2020-10-16)
DX: Z43.3 Encounter for attention to colostomy (principal); K65.1 Peritoneal abscess; E27.40 Unspecified adrenocortical insufficiency; B37.0 Candidal stomatitis; T81.31XA Disruption of external operation (surgical) wound, not elsewhere classified, initial encounter; K57.20 Diverticulitis of large intestine with perforation and abscess without bleeding; K91.840 Postprocedural hemorrhage of a digestive system organ or structure following a digestive system procedure; F19.20 Other psychoactive substance dependence, uncomplicated; K56.600 Partial intestinal obstruction, unspecified as to cause; I25.10 Atherosclerotic heart disease of native coronary artery without angina pectoris; I10 Essential (primary) hypertension; E78.5 Hyperlipidemia, unspecified; D72.829 Elevated white blood cell count, unspecified; T38.0X5A Adverse effect of glucocorticoids and synthetic analogues, initial encounter; I48.0 Paroxysmal atrial fibrillation; L63.0 Alopecia (capitis) totalis; L20.9 Atopic dermatitis, unspecified; M25.421 Effusion, right elbow; E87.6 Hypokalemia; R33.9 Retention of urine, unspecified; B96.20 Unspecified Escherichia coli [E. coli] as the cause of diseases classified elsewhere; R39.11 Hesitancy of micturition; Z87.442 Personal history of urinary calculi; Z87.19 Personal history of other diseases of the digestive system; Z98.52 Vasectomy status; Z95.5 Presence of coronary angioplasty implant and graft; Z90.89 Acquired absence of other organs; Z79.899 Other long term (current) drug therapy; Z79.82 Long term (current) use of aspirin; Z88.1 Allergy status to other antibiotic agents; Z88.5 Allergy status to narcotic agent; I25.2 Old myocardial infarction; Z90.49 Acquired absence of other specified parts of digestive tract; Z80.51 Family history of malignant neoplasm of kidney; Z82.3 Family history of stroke; Z79.52 Long term (current) use of systemic steroids; Y83.2 Surgical operation with anastomosis, bypass or graft as the cause of abnormal reaction of the patient, or of later complication, without mention of misadventure at the time of the procedure
CPT/HCPCS: 36415; 36416; 49020; 71045; 72193; 74177; 77002; 77012; 80048; 80053; 81001; 84132; 85025; 85027; 85060; 85610; 87040; 87070; 87077; 87186; 87205; 88304; 88307; 89051; 93005; 93010; 93306; 93970; C1729; J0690; J0694; J1200; J1650; J1720; J1885; J1940; J2001; J2250; J2270; J2405; J2543; J2704; J3010; J3490; J7512; Q0163; Q9967; S0028

== ENCOUNTER 2020-12-22 10:32 | Outpatient (CLI) | payer MEDICARE, OTHER ==
[~2020-12-22 10:32] MED LIST: MD-Gastroview 120 ML BOT ONE
== END 2020-12-22 10:33 | disposition home or self-care (01) ==
LOC: RAD 10:32
PROVIDERS: ATTEND Surgery
DX: Z01.818 Encounter for other preprocedural examination (principal); K57.92 Diverticulitis of intestine, part unspecified, without perforation or abscess without bleeding; K57.30 Diverticulosis of large intestine without perforation or abscess without bleeding; Z93.3 Colostomy status
CPT/HCPCS: 74280; Q9963

== ENCOUNTER 2021-02-03 10:57 | Outpatient (CLI) | payer MEDICARE, OTHER ==
[2021-02-03 12:47] LABS: Hemoglobin 13.8 g/dL (13.5-17.5); Mean Corpuscular HGB CONC 31.3 g/dL (32.0-36.0); Mean Corpuscular Hemoglobin 28.9 pg (27.0-33.0); Mean Corpuscular Volume 92.5 fl (81.2-95.1); Mean Platelet Volume 10.6 fl (7.4-10.4); Platelet Count 218 10x3/uL (150-450); RBC Distribution Width 16.4 % (11.5-14.5); Red Blood Cell (RBC) Count 4.77 10x6/uL (4.32-5.72); White Blood Cell (WBC) Count 12.8 10x3/uL (3.5-10.5)
[2021-02-03 12:48] LABS: MDiff Complete? YES
[2021-02-03 13:27] LABS: ALT (SGPT) 73 U/L (8-55); AST (SGOT) 42 U/L (5-34); Alkaline Phosphatase 71 U/L (40-110); Anion Gap 16 mmol/L (10-20); BUN (Urea Nitrogen) 20 mg/dL (8.4-25.7); Calc. Creatinine Clearance 0 mL/min (70-130); Calcium 9.2 mg/dL (7.8-10.44); Carbon Dioxide 21 mmol/L (23-31); Chloride 106 mmol/L (98-107); Globulin 2.1 g/dL (2.4-3.5); Glucose 103 mg/dL (80-115); Potassium 4.5 mmol/L (3.5-5.1); Protein, Total 6.1 g/dL (5.8-8.1); Sodium 138 mmol/L (136-145)
[2021-02-03 13:53] LABS: Anisocytosis SLIGHT = 6-15 cells (100X) (0-5/hpf); Band 1 % (5-11); Lymphocytes 6 % (21-51); Metamyelocyte 2 % (0-0); Monocytes 14 % (0-10); Neutrophil 77 % (42-75); Platelet Morphology Comment Appears Adequate
[2021-02-03 23:48] LABS: SARS-CoV-2 PCR by NAA Not Detected (NotDetected)
== END 2021-02-03 10:58 | disposition home or self-care (01) ==
LOC: LABBT 10:57
PROVIDERS: ATTEND Surgery
DX: Z01.818 Encounter for other preprocedural examination (principal); Z93.2 Ileostomy status; Z20.822 Contact with and (suspected) exposure to COVID-19
CPT/HCPCS: 80053; 85025; U0003; U0005

== ENCOUNTER 2021-02-03 11:30 | Inpatient (IN) | payer MEDICARE, OTHER ==
[2021-02-08] MEDS ORDERED: HYDROmorphone 2 MG/ML VIAL ONE (06:27)
[2021-02-08] MEDS ORDERED: Fentanyl 100 MCG/2 ML VIAL ONE (06:27)
[2021-02-08] MEDS ORDERED: SUGAMMADEX SODIUM 200 MG/2 ML VIAL ONE (06:28)
[2021-02-08] MEDS ORDERED: Promethazine HCl 25 MG/ML VIAL ONE (06:28)
[2021-02-08] MEDS ORDERED: Phenylephrine 10 MG/ML VIAL ONE (06:28)
[2021-02-08] MEDS ORDERED: cefOXitin Sodium/Dextrose 2 GM/50 ML BAG ONE (06:49)
[2021-02-08] MEDS ORDERED: PROPOFOL 200 MG/20 ML VIAL ONE (07:34)
[2021-02-08] MEDS ORDERED: Dexamethasone 20 MG/5 ML VIAL ONE (07:34)
[2021-02-08] MEDS ORDERED: ePHEDrine 50 MG/ML VIAL ONE (07:34)
[2021-02-08] MEDS ORDERED: Glycopyrrolate 0.2 MG/ML 5 ML SYRINGE ONE (07:34)
[2021-02-08] MEDS ORDERED: PHENYLEPHRINE-NS 100 MCG/ML 10 ML SYRINGE ONE (07:34)
[2021-02-08] MEDS ORDERED: Lidocaine 1% PF 5 ML VIAL ONE (07:34)
[2021-02-08] MEDS ORDERED: Ondansetron PF 4 MG/2 ML Vial ONE (07:34)
[2021-02-08] MEDS ORDERED: Rocuronium Bromide 10 MG/ML (10ML VIAL) ONE (07:34)
[2021-02-08] MEDS ORDERED: Neomycin-Polymyxin 1 ML AMP ONE (08:01)
[2021-02-08] MEDS ORDERED: Ondansetron PF 4 MG/2 ML Vial IVP PRN ×2 (08:53→11:01)
[2021-02-08] MEDS ORDERED: Promethazine HCl 25 MG/ML VIAL IM PRN ×2 (08:53→11:01)
[2021-02-08] MEDS ORDERED: hydrALAZINE 20 MG/ML VIAL SLOW IVP PRN (08:53)
[2021-02-08] MEDS ORDERED: Piperacillin/Tazobactam 3.375 GM in Sodium Chloride 0.9% 100 ML IVPB SCH (10:00)
[2021-02-08] MEDS: Famotidine 20 MG TAB PO SCH ×2 (10:17→20:53)
[2021-02-08] MEDS ORDERED: Morphine 4 MG/ML VIAL SLOW IVP PRN ×2 (10:59→12:17)
[2021-02-08] MEDS ORDERED: Naloxone HCl 0.4 mg/ml Vial IV PRN (11:01)
[2021-02-08] MEDS ORDERED: diphenhydrAMINE 50 MG/ML VIAL IVP PRN (11:01)
[2021-02-08] MEDS ORDERED: Communication Order-Pharmacy FS SCH (11:15)
[2021-02-08] MEDS: Famotidine/PF 20 mg/2ml Vial SLOW IVP SCH ×2 (11:17→20:52)
[2021-02-08] MEDS: Hydrocortisone Sod Succ/PF 100 mg/2 ml Vial IVP SCH ×3 (11:19→23:25)
[2021-02-08] MEDS: Sodium Chloride 0.9% 1,000 ML IV SCH ×2 (11:20→18:34)
[2021-02-08] MEDS: Enoxaparin Sodium 30 MG/0.3 ML SYRINGE SC SCH (11:45)
[2021-02-08] MEDS ORDERED: Heparin 1,000 UNITS/ML VIAL ONE (12:16)
[2021-02-08] MEDS: Ketorolac Tromethamine 30 MG/ML VIAL IVP PRN ×2 (13:10→20:49)
[2021-02-08] MEDS: HYDROmorphone 10 mg/100 ml CADD IVPB PRN (14:41)
[2021-02-08] MEDS: Piperacillin/Tazobactam 3.375 GM in Sodium Chloride 0.9% 100 ML IVPB SCH ×2 (15:42→20:48)
[2021-02-08] MEDS ORDERED: FLU VACC QS2021-22(65YR UP)/PF 240 MCG/0.7 ML SYRINGE IM ONE (19:15)
[2021-02-08] MEDS ORDERED: Carvedilol 3.125 MG TAB PO SCH (22:15)
[2021-02-09] MEDS: Sodium Chloride 0.9% 1,000 ML IV SCH ×4 (01:01→23:48)
[2021-02-09] MEDS: Ketorolac Tromethamine 30 MG/ML VIAL IVP PRN ×3 (04:12→20:09)
[2021-02-09] MEDS: Hydrocortisone Sod Succ/PF 100 mg/2 ml Vial IVP SCH ×4 (05:11→23:47)
[2021-02-09] MEDS: Piperacillin/Tazobactam 3.375 GM in Sodium Chloride 0.9% 100 ML IVPB SCH ×3 (05:11→20:04)
[2021-02-09 06:47] LABS: #Basophils 0.1 thou/uL (0.0-0.2); #Eosinphils 0.1 thou/uL (0.0-0.7); #Lymphocytes 0.2 thou/uL (1.20-3.40); #Monocytes 0.7 thou/uL (0.11-0.59); #Neutrophils 16.3 thou/uL (1.40-6.50); %Basophils 0.7 % (0.0-1.0); %Eosinophils 0.3 % (0.0-10.0); %Lymphocytes 0.9 % (21.0-51.0); %Monocytes 4.3 % (0.0-10.0); %Neutrophils 93.8 % (42.0-75.0); Hemoglobin 12.9 g/dL (14.0-18.0); Mean Corpuscular HGB CONC 31.4 g/dL (32.0-36.0); Mean Corpuscular Hemoglobin 30.1 pg (27.0-31.0); Mean Corpuscular Volume 95.8 fL (78.0-98.0); Mean Platelet Volume 8.4 fL (7.4-10.4); Platelet Count 157 thou/uL (130-400); RBC Distribution Width 15.7 % (11.5-14.5); Red Blood Cell (RBC) Count 4.29 mill/uL (4.70-6.10); White Blood Cell (WBC) Count 17.3 thou/uL (4.8-10.8)
[2021-02-09 07:06] LABS: Anion Gap 11 mmol/L (10-20); BUN (Urea Nitrogen) 16 mg/dL (8.4-25.7); Calc. Creatinine Clearance 86 mL/min (70-130); Calcium 7.8 mg/dL (7.8-10.44); Carbon Dioxide 22 mmol/L (23-31); Chloride 109 mmol/L (98-107); Glucose 95 mg/dL (80-115); Potassium 3.9 mmol/L (3.5-5.1); Sodium 138 mmol/L (136-145)
[2021-02-09] MEDS: Famotidine 20 MG TAB PO SCH ×2 (09:34→20:04)
[2021-02-09] MEDS: Enoxaparin Sodium 30 MG/0.3 ML SYRINGE SC SCH (09:34)
[2021-02-09] MEDS: Carvedilol 3.125 MG TAB PO SCH ×2 (09:34→20:04)
[2021-02-09] MEDS: Amiodarone 200 MG TAB PO SCH (09:34)
[2021-02-09] MEDS: Famotidine/PF 20 mg/2ml Vial SLOW IVP SCH ×2 (09:35→22:13)
[2021-02-09] MEDS: HYDROmorphone 10 mg/100 ml CADD IVPB PRN (20:18)
[2021-02-10] MEDS: Hydrocortisone Sod Succ/PF 100 mg/2 ml Vial IVP SCH ×4 (04:49→23:42)
[2021-02-10] MEDS: Ketorolac Tromethamine 30 MG/ML VIAL IVP PRN ×3 (04:50→20:48)
[2021-02-10] MEDS: Piperacillin/Tazobactam 3.375 GM in Sodium Chloride 0.9% 100 ML IVPB SCH ×3 (04:50→21:48)
[2021-02-10] MEDS: Famotidine/PF 20 mg/2ml Vial SLOW IVP SCH ×2 (10:05→20:06)
[2021-02-10] MEDS: Carvedilol 3.125 MG TAB PO SCH ×2 (10:05→20:06)
[2021-02-10] MEDS: Famotidine 20 MG TAB PO SCH (10:05)
[2021-02-10] MEDS: Enoxaparin Sodium 30 MG/0.3 ML SYRINGE SC SCH (10:05)
[2021-02-10] MEDS: Tamsulosin HCl 0.4 MG CAP PO SCH (10:05)
[2021-02-10] MEDS: Amiodarone 200 MG TAB PO SCH (10:05)
[2021-02-10] MEDS: Calcium Carbonate 500 MG ChewTAB PO PRN ×2 (12:10→20:47)
[2021-02-10] MEDS: Sodium Chloride 0.9% 1,000 ML IV SCH ×2 (12:10→21:48)
[2021-02-10] MEDS ORDERED: Sodium Chloride 0.9% (PF) 10 ML VIAL FS PRN (12:15)
[2021-02-10] MEDS ORDERED: Pantoprazole 40 MG VIAL IVP SCH (12:15)
[2021-02-10] MEDS: HYDROmorphone 10 mg/100 ml CADD IVPB PRN (15:16)
[2021-02-10] MEDS ORDERED: Lorazepam 2 MG/ML VIAL SLOW IVP PRN (15:40)
[2021-02-10] MEDS ORDERED: Simethicone Chewable 80 MG TAB PO PRN (15:40)
[2021-02-11] MEDS: Sodium Chloride 0.9% 1,000 ML IV SCH ×3 (03:20→18:34)
[2021-02-11] MEDS: Ketorolac Tromethamine 30 MG/ML VIAL IVP PRN (05:22)
[2021-02-11] MEDS: Hydrocortisone Sod Succ/PF 100 mg/2 ml Vial IVP SCH ×3 (05:23→18:30)
[2021-02-11] MEDS: Piperacillin/Tazobactam 3.375 GM in Sodium Chloride 0.9% 100 ML IVPB SCH ×3 (05:23→22:31)
[2021-02-11 06:16] LABS: Band 45 % (5-11); Hemoglobin 12.9 g/dL (14.0-18.0); Lymphocytes 2 % (21-51); MDiff Complete? YES; Mean Corpuscular HGB CONC 31.8 g/dL (32.0-36.0); Mean Corpuscular Hemoglobin 30.9 pg (27.0-31.0); Mean Corpuscular Volume 97.3 fL (78.0-98.0); Mean Platelet Volume 10.2 fL (7.4-10.4); Monocytes 4 % (0-10); Neutrophil 49 % (42-75); Platelet Count 141 thou/uL (130-400); Platelet Morphology Comment Appears Adequate; RBC Distribution Width 16.3 % (11.5-14.5); Red Blood Cell (RBC) Count 4.15 mill/uL (4.70-6.10); Reflex for Review?? NO
[2021-02-11 06:23] LABS: Anion Gap 15 mmol/L (10-20); BUN (Urea Nitrogen) 39 mg/dL (8.4-25.7); Calc. Creatinine Clearance 52 mL/min (70-130); Calcium 6.8 mg/dL (7.8-10.44); Carbon Dioxide 15 mmol/L (23-31); Chloride 117 mmol/L (98-107); Glucose 105 mg/dL (80-115); Potassium 3.5 mmol/L (3.5-5.1); Sodium 143 mmol/L (136-145)
[2021-02-11] MEDS ORDERED: DC PCA Order Set 1 EACH FS ONE (08:33)
[2021-02-11] MEDS ORDERED: Sodium Chloride 0.9% 500 ML IV SCH (08:45)
[2021-02-11] MEDS ORDERED: fentaNYL 50 mcg/hour Patch TD SCH (08:45)
[2021-02-11] MEDS ORDERED: Morphine 4 MG/ML VIAL SLOW IVP PRN (09:06)
[2021-02-11] MEDS: Famotidine/PF 20 mg/2ml Vial SLOW IVP SCH ×2 (09:48→20:48)
[2021-02-11] MEDS: Morphine 4 MG/ML VIAL SLOW IVP PRN ×2 (09:48→16:47)
[2021-02-11] MEDS: Amiodarone 200 MG TAB PO SCH (09:50)
[2021-02-11] MEDS: Pantoprazole 40 MG VIAL IVP SCH (09:50)
[2021-02-11] MEDS: Tamsulosin HCl 0.4 MG CAP PO SCH (09:51)
[2021-02-11] MEDS: Carvedilol 3.125 MG TAB PO SCH ×2 (09:51→20:48)
[2021-02-11] MEDS: Enoxaparin Sodium 30 MG/0.3 ML SYRINGE SC SCH (11:43)
[2021-02-11 12:33] LABS: INR-International Normal Ratio 1.3; PTT 41.1 sec (22.9-36.1); Prothrombin Time 16.6 sec (12.0-14.7)
[2021-02-11 12:40] LABS: ALT (SGPT) 39 U/L (8-55); AST (SGOT) 40 U/L (5-34); Albumin 2.1 g/dL (3.4-4.8); Alkaline Phosphatase 44 U/L (40-110); Anion Gap 17 mmol/L (10-20); BUN (Urea Nitrogen) 42 mg/dL (8.4-25.7); Bilirubin, Total 1.6 mg/dL (0.2-1.2); Calc. Creatinine Clearance 51 mL/min (70-130); Calcium 6.4 mg/dL (7.8-10.44); Carbon Dioxide 14 mmol/L (23-31); Cardiac Risk 2.9 (Less than 4.5); Chloride 117 mmol/L (98-107); Cholesterol 150 mg/dl (< 200 Desired); Globulin 1.7 g/dL (2.4-3.5); Glucose 144 mg/dL (80-115); HDL Cholesterol 51 mg/dL (>60 Neg Risk); LDL Cholesterol, Calculated 73 mg/dL; Phosphorus 2.6 mg/dL (2.3-4.7); Potassium 3.5 mmol/L (3.5-5.1); Protein, Total 3.8 g/dL (5.8-8.1); Sodium 144 mmol/L (136-145); Triglycerides 132 mg/dL (Less than 150)
[2021-02-11] MEDS ORDERED: Multivitamins, Adult 10 ML, TRACE ELEMENT CONCENTRATE 1 ML in D15W-AA 5% with Lytes 2,0... IV SCH ×2 (14:00)
[2021-02-12] MEDS: Hydrocortisone Sod Succ/PF 100 mg/2 ml Vial IVP SCH ×5 (00:51→23:52)
[2021-02-12] MEDS: Piperacillin/Tazobactam 3.375 GM in Sodium Chloride 0.9% 100 ML IVPB SCH ×3 (06:29→21:29)
[2021-02-12] MEDS ORDERED: Dextrose 50% Abboject 50 ML SYRINGE SLOW IVP PRN (07:54)
[2021-02-12] MEDS ORDERED: Dextrose 5% in Water 1,000 ML IV PRN (07:54)
[2021-02-12] MEDS ORDERED: fentaNYL 50 mcg/hour Patch TD SCH (07:56)
[2021-02-12] MEDS ORDERED: Insulin Regular 300 UNITS/3 ML VIAL ONE (08:22)
[2021-02-12] MEDS: Famotidine/PF 20 mg/2ml Vial SLOW IVP SCH ×2 (08:29→21:29)
[2021-02-12] MEDS: Pantoprazole 40 MG VIAL IVP SCH (08:30)
[2021-02-12] MEDS: Amiodarone 200 MG TAB PO SCH (08:33)
[2021-02-12] MEDS: Tamsulosin HCl 0.4 MG CAP PO SCH (08:34)
[2021-02-12] MEDS: Carvedilol 3.125 MG TAB PO SCH ×2 (08:34→21:30)
[2021-02-12] MEDS: Enoxaparin Sodium 30 MG/0.3 ML SYRINGE SC SCH (08:34)
[2021-02-12] MEDS: Insulin Regular 300 UNITS/3 ML VIAL SC PRN (08:46)
[2021-02-12] MEDS ORDERED: Furosemide 40 MG/4 ML VIAL ONE ×3 (11:32→12:58)
[2021-02-12 12:12] LABS: Actual Bicarbonate (HCO3a) 15.3 mEq/L (22-28); Base Excess (BEa) -8.5 mEq/L (-2.0 to +3.0); CO2 Tension 26.6 mmHg (35.0-45.0); Calcium, Ionized (arterial) 1.14 mmol/L (1.12-1.30); Carboxyhemoglobin (COHb) 0.9 gm% (0.0-3.0); Hemoglobin (Hb) 10.7 g/dL (14.0-18.0); Potassium - ABG Lab 3.21 mmol/L (3.70-5.30); pH, Arterial 7.38 (7.35-7.45)
[2021-02-12 12:13] LABS: O2 Tension (PaO2), arterial 42.2 mmHg (> 80.0)
[2021-02-12 12:14] LABS: Puncture Site RRA
[2021-02-12] MEDS ORDERED: Furosemide 20 MG TAB PO SCH (12:15)
[2021-02-12] MEDS ORDERED: Lorazepam 2 MG/ML VIAL ONE (13:00)
[2021-02-12] MEDS ORDERED: Furosemide 40 MG/4 ML VIAL SLOW IVP SCH ×3 (13:00→20:00)
[2021-02-12] MEDS ORDERED: Lorazepam 2 MG/ML VIAL SLOW IVP SCH (13:02)
[2021-02-12] MEDS: Potassium Chloride 20 MEQ in Premix Bag 1 BAG IVPB SCH ×3 (13:46→17:41)
[2021-02-12] MEDS ORDERED: Multivit, Adult Inj 10 ML VIAL IV SCH (14:00)
[2021-02-12] MEDS: Multivitamins, Adult 10 ML, TRACE ELEMENT CONCENTRATE 1 ML in D15W-AA 5% with Lytes 2,0... IV SCH (14:00)
[2021-02-12] MEDS ORDERED: Multivitamins, Adult 10 ML, TRACE ELEMENT CONCENTRATE 1 ML in D15W-AA 5% with Lytes 2,0... IV SCH (14:00)
[2021-02-12 14:15] LABS: Troponin I 0.024 ng/mL (< 0.028)
[2021-02-12 14:39] LABS: Hemoglobin 11.8 g/dL (14.0-18.0); Mean Corpuscular HGB CONC 32.7 g/dL (32.0-36.0); Mean Corpuscular Hemoglobin 31.2 pg (27.0-31.0); Mean Corpuscular Volume 95.5 fL (78.0-98.0); Mean Platelet Volume 9.3 fL (7.4-10.4); Platelet Count 160 thou/uL (130-400); RBC Distribution Width 16.4 % (11.5-14.5); Red Blood Cell (RBC) Count 3.78 mill/uL (4.70-6.10); White Blood Cell (WBC) Count 15.8 thou/uL (4.8-10.8)
[2021-02-12 14:51] LABS: INR-International Normal Ratio 1.1; PTT 39.8 sec (22.9-36.1); Prothrombin Time 14.2 sec (12.0-14.7)
[2021-02-12 15:00] LABS: Phosphorus 1.4 mg/dL (2.3-4.7)
[2021-02-12 15:09] LABS: Band 37 % (5-11); Lymphocytes 4 % (21-51); MDiff Complete? YES; Monocytes 4 % (0-10); Myelocyte 1 % (0-0); Neutrophil 54 % (42-75); Platelet Morphology Comment Appears Adequate; RBC Morphology Normal
[2021-02-12 15:11] LABS: ALT (SGPT) 35 U/L (8-55); AST (SGOT) 32 U/L (5-34); Albumin 2.4 g/dL (3.4-4.8); Alkaline Phosphatase 62 U/L (40-110); Anion Gap 13 mmol/L (10-20); BUN (Urea Nitrogen) 50 mg/dL (8.4-25.7); Bilirubin, Total 1.5 mg/dL (0.2-1.2); Calc. Creatinine Clearance 54 mL/min (70-130); Calcium 7.4 mg/dL (7.8-10.44); Carbon Dioxide 17 mmol/L (23-31); Chloride 117 mmol/L (98-107); Globulin 2.1 g/dL (2.4-3.5); Glucose 260 mg/dL (80-115); Magnesium 2.2 mg/dL (1.6-2.6); Potassium 3.7 mmol/L (3.5-5.1); Protein, Total 4.5 g/dL (5.8-8.1); Sodium 143 mmol/L (136-145)
[2021-02-12] MEDS ORDERED: Morphine 4 MG/ML VIAL SLOW IVP PRN (15:52)
[2021-02-12] MEDS ORDERED: Morphine 4 MG/ML VIAL ONE ×2 (16:03)
[2021-02-12] MEDS ORDERED: Potassium Phosphate 30 MMOL in Sodium Chloride 0.9% 250 ML 250 ML IVPB SCH (16:30)
[2021-02-12] MEDS: Morphine 4 MG/ML VIAL SLOW IVP PRN (16:30)
[2021-02-13 04:32] LABS: INR-International Normal Ratio 1.1; PTT 34.7 sec (22.9-36.1); Prothrombin Time 14.5 sec (12.0-14.7)
[2021-02-13 05:14] LABS: ALT (SGPT) 29 U/L (8-55); AST (SGOT) 29 U/L (5-34); Albumin 2.1 g/dL (3.4-4.8); Alkaline Phosphatase 58 U/L (40-110); Anion Gap 14 mmol/L (10-20); BUN (Urea Nitrogen) 57 mg/dL (8.4-25.7); Bilirubin, Total 1.3 mg/dL (0.2-1.2); Calc. Creatinine Clearance 51 mL/min (70-130); Calcium 7.6 mg/dL (7.8-10.44); Carbon Dioxide 18 mmol/L (23-31); Cardiac Risk 11.8 (Less than 4.5); Chloride 118 mmol/L (98-107); Cholesterol 200 mg/dl (< 200 Desired); Glucose 271 mg/dL (80-115); HDL Cholesterol 17 mg/dL (>60 Neg Risk); Magnesium 2.1 mg/dL (1.6-2.6); Phosphorus 3.3 mg/dL (2.3-4.7); Potassium 3.6 mmol/L (3.5-5.1); Protein, Total 4.1 g/dL (5.8-8.1); Sodium 146 mmol/L (136-145); Triglycerides 492 mg/dL (Less than 150)
[2021-02-13] MEDS: Morphine 4 MG/ML VIAL SLOW IVP PRN ×2 (05:23→10:35)
[2021-02-13] MEDS: Piperacillin/Tazobactam 3.375 GM in Sodium Chloride 0.9% 100 ML IVPB SCH ×3 (05:27→21:30)
[2021-02-13] MEDS: Hydrocortisone Sod Succ/PF 100 mg/2 ml Vial IVP SCH ×3 (05:28→18:01)
[2021-02-13 05:57] LABS: Anisocytosis SLIGHT = 6-15 cells (100X) (0-5/hpf); Band 26 % (5-11); Hemoglobin 10.3 g/dL (14.0-18.0); Lymphocytes 3 % (21-51); MDiff Complete? YES; Mean Corpuscular HGB CONC 32.6 g/dL (32.0-36.0); Mean Corpuscular Volume 94.9 fL (78.0-98.0); Mean Platelet Volume 9.7 fL (7.4-10.4); Monocytes 2 % (0-10); Myelocyte 1 % (0-0); Neutrophil 68 % (42-75); Platelet Count 119 thou/uL (130-400); Platelet Morphology Comment Appears Decreased; RBC Distribution Width 16.4 % (11.5-14.5); Red Blood Cell (RBC) Count 3.34 mill/uL (4.70-6.10); White Blood Cell (WBC) Count 10.3 thou/uL (4.8-10.8)
[2021-02-13] MEDS ORDERED: Furosemide 40 MG/4 ML VIAL SLOW IVP SCH (08:00)
[2021-02-13] MEDS: Potassium Chloride 20 MEQ in Premix Bag 1 BAG IVPB SCH ×3 (08:06→14:40)
[2021-02-13] MEDS: Tamsulosin HCl 0.4 MG CAP PO SCH (09:23)
[2021-02-13] MEDS: Pantoprazole 40 MG VIAL IVP SCH (09:23)
[2021-02-13] MEDS: Amiodarone 200 MG TAB PO SCH (09:23)
[2021-02-13] MEDS: Carvedilol 3.125 MG TAB PO SCH ×2 (09:23→20:18)
[2021-02-13] MEDS: Famotidine/PF 20 mg/2ml Vial SLOW IVP SCH ×2 (09:24→20:15)
[2021-02-13] MEDS: Enoxaparin Sodium 30 MG/0.3 ML SYRINGE SC SCH (09:41)
[2021-02-13] MEDS: Insulin Regular 300 UNITS/3 ML VIAL SC PRN (09:58)
[2021-02-13] MEDS ORDERED: Midazolam HCl 2 mg/2 ml Vial ONE (10:45)
[2021-02-13] MEDS: Lorazepam 2 MG/ML VIAL SLOW IVP PRN (10:46)
[2021-02-13] MEDS ORDERED: Norepinephrine 8 MG/0.9% NS 250 ML ONE (10:48)
[2021-02-13] MEDS ORDERED: Calcium Chloride 1 GM/10 ML Abboject SYRINGE ONE (11:05)
[2021-02-13] MEDS ORDERED: Dextrose 50% Abboject 50 ML SYRINGE ONE (11:05)
[2021-02-13] MEDS ORDERED: Sodium Bicarb 50 MEQ/50 ML Abboject 8.4% SYRINGE ONE (11:05)
[2021-02-13] MEDS ORDERED: EPINEPHrine 1 MG/10 ML Abboject SYRINGE ONE (11:05)
[2021-02-13] MEDS ORDERED: WATER IV SCH (11:30)
[2021-02-13] MEDS ORDERED: Sodium Bicarbonate 150 MEQ in Dextrose 5% in Water 1,000 ML IV SCH (11:30)
[2021-02-13] MEDS ORDERED: EPINEPHRINE IV SCH (11:30)
[2021-02-13] MEDS ORDERED: DEXTROSE 5% IV SCH (11:30)
[2021-02-13 11:42] LABS: Actual Bicarbonate (HCO3a) 20.4 mEq/L (22-28); Calcium, Ionized (arterial) 1.32 mmol/L (1.12-1.30); Carboxyhemoglobin (COHb) 0.2 gm% (0.0-3.0); Hemoglobin (Hb) 10.5 g/dL (14.0-18.0); O2 Tension (PaO2), arterial 52.4 mmHg (> 80.0); Potassium - ABG Lab 3.87 mmol/L (3.70-5.30); pH, Arterial 7.38 (7.35-7.45)
[2021-02-13 11:43] LABS: Puncture Site LBA
[2021-02-13] MEDS ORDERED: Fentanyl CADD 100 ML ONE (12:17)
[2021-02-13] MEDS: Fentanyl CADD 100 ML IV SCH (12:20)
[2021-02-13] MEDS ORDERED: Propofol 1,000 MG/100 ML VIAL IV ONE (12:49)
[2021-02-13] MEDS ORDERED: Amiodarone 150 MG, Admixture Fee 1 EACH in Dextrose 5% in Water 100 ML IVPB SCH (13:00)
[2021-02-13] MEDS ORDERED: Propofol BOLUS 1,000 MG/100 ML VIAL IV PRN (13:15)
[2021-02-13] MEDS ORDERED: Fentanyl BOLUS 250 ML IVPB PRN (13:15)
[2021-02-13] MEDS ORDERED: Morphine 2 MG/ML VIAL SLOW IVP PRN (13:15)
[2021-02-13] MEDS ORDERED: DISCONTINUE PREVIOUS NARCOTIC PAIN MEDICATIONS AND BENZODIAZEPINES FS SCH (13:15)
[2021-02-13] MEDS: Amiodarone 450 MG, Admixture Fee 1 EACH in Dextrose 5% in Water 250 ML IVPB SCH (13:16)
[2021-02-13] MEDS: Propofol 1,000 MG/100 ML VIAL IV PRN (13:30)
[2021-02-13] MEDS ORDERED: Digoxin 0.5 MG/2 ML AMP SLOW IVP SCH ×2 (13:30→18:30)
[2021-02-13] MEDS ORDERED: Norepinephrine 8 MG/0.9% NS 250 ML IVPB SCH (14:00)
[2021-02-13] MEDS ORDERED: Midazolam HCl 2 mg/2 ml Vial FS SCH (14:45)
[2021-02-13 15:34] LABS: Hemoglobin 9.7 g/dL (14.0-18.0); Mean Corpuscular HGB CONC 32.2 g/dL (32.0-36.0); Mean Corpuscular Hemoglobin 31.2 pg (27.0-31.0); Mean Corpuscular Volume 97.1 fL (78.0-98.0); Mean Platelet Volume 10.7 fL (7.4-10.4); Platelet Count 112 thou/uL (130-400); RBC Distribution Width 16.7 % (11.5-14.5); Red Blood Cell (RBC) Count 3.09 mill/uL (4.70-6.10); White Blood Cell (WBC) Count 15.6 thou/uL (4.8-10.8)
[2021-02-13 15:39] LABS: Troponin I 0.019 ng/mL (< 0.028)
[2021-02-13 15:48] LABS: Anisocytosis SLIGHT = 6-15 cells (100X) (0-5/hpf); Band 33 % (5-11); Lymphocytes 17 % (21-51); MDiff Complete? YES; Monocytes 3 % (0-10); Neutrophil 47 % (42-75); Nucleated RBC 1 % (0); Platelet Morphology Comment Appears Decreased
[2021-02-13] MEDS ORDERED: Phenylephrine 40 MG/NS 250 ML 40 MG in Premix Bag 1 BAG IVPB SCH (16:00)
[2021-02-13 16:01] LABS: Lactic Acid 6.4 mmol/L (0.5-2.2)
[2021-02-13 16:02] LABS: ALT (SGPT) 27 U/L (8-55); AST (SGOT) 30 U/L (5-34); Albumin 1.6 g/dL (3.4-4.8); Alkaline Phosphatase 54 U/L (40-110); Anion Gap 21 mmol/L (10-20); BUN (Urea Nitrogen) 54 mg/dL (8.4-25.7); Bilirubin, Total 0.9 mg/dL (0.2-1.2); Calc. Creatinine Clearance 48 mL/min (70-130); Calcium 9.8 mg/dL (7.8-10.44); Carbon Dioxide 29 mmol/L (23-31); Chloride 114 mmol/L (98-107); Globulin 1.7 g/dL (2.4-3.5); Glucose 508 mg/dL (80-115); Magnesium 2.2 mg/dL (1.6-2.6); Phosphorus 4.2 mg/dL (2.3-4.7); Potassium 5.4 mmol/L (3.5-5.1); Protein, Total 3.3 g/dL (5.8-8.1); Sodium 159 mmol/L (136-145)
[2021-02-13] MEDS: Norepinephrine 16 MG in Dextrose 5% in Water 234 ML IVPB SCH (17:58)
[2021-02-13] MEDS: Furosemide 40 MG/4 ML VIAL SLOW IVP SCH ×2 (18:01→20:15)
[2021-02-13 18:06] LABS: Troponin I 0.246 ng/mL (< 0.028)
[2021-02-13 23:20] LABS: Troponin I 0.435 ng/mL (< 0.028)
[2021-02-14] MEDS: Hydrocortisone Sod Succ/PF 100 mg/2 ml Vial IVP SCH ×4 (00:28→18:22)
[2021-02-14 04:35] LABS: INR-International Normal Ratio 1.3; PTT 36.5 sec (22.9-36.1); Prothrombin Time 16.1 sec (12.0-14.7)
[2021-02-14] MEDS: Norepinephrine 16 MG in Dextrose 5% in Water 234 ML IVPB SCH (04:38)
[2021-02-14 04:42] LABS: Lactic Acid 3.6 mmol/L (0.5-2.2)
[2021-02-14 05:14] LABS: ALT (SGPT) 225 U/L (8-55); AST (SGOT) 331 U/L (5-34); Albumin 2.2 g/dL (3.4-4.8); Alkaline Phosphatase 100 U/L (40-110); Anion Gap 18 mmol/L (10-20); BUN (Urea Nitrogen) 75 mg/dL (8.4-25.7); Bilirubin, Total 1.2 mg/dL (0.2-1.2); Calc. Creatinine Clearance 31 mL/min (70-130); Calcium 8.4 mg/dL (7.8-10.44); Carbon Dioxide 19 mmol/L (23-31); Cardiac Risk TEST NOT PERFORMED (Less than 4.5); Chloride 111 mmol/L (98-107); Cholesterol 220 mg/dl (< 200 Desired); Globulin 2.5 g/dL (2.4-3.5); Glucose 306 mg/dL (80-115); HDL Cholesterol Less than 8 mg/dL (>60 Neg Risk); Magnesium 1.9 mg/dL (1.6-2.6); Phosphorus 3.1 mg/dL (2.3-4.7); Potassium 4.8 mmol/L (3.5-5.1); Protein, Total 4.7 g/dL (5.8-8.1); Sodium 143 mmol/L (136-145); Triglycerides 825 mg/dL (Less than 150)
[2021-02-14 05:25] LABS: Band 24 % (5-11); Hemoglobin 11.5 g/dL (14.0-18.0); Lymphocytes 6 % (21-51); MDiff Complete? YES; Mean Corpuscular HGB CONC 32.6 g/dL (32.0-36.0); Mean Corpuscular Hemoglobin 31.1 pg (27.0-31.0); Mean Corpuscular Volume 95.3 fL (78.0-98.0); Mean Platelet Volume 10.4 fL (7.4-10.4); Monocytes 4 % (0-10); Myelocyte 6 % (0-0); Neutrophil 60 % (42-75); Nucleated RBC 4 % (0); Platelet Count 140 thou/uL (130-400); White Blood Cell (WBC) Count 19.9 thou/uL (4.8-10.8)
[2021-02-14] MEDS: Insulin Regular 300 UNITS/3 ML VIAL SC PRN ×3 (05:34→22:31)
[2021-02-14] MEDS: Piperacillin/Tazobactam 3.375 GM in Sodium Chloride 0.9% 100 ML IVPB SCH ×3 (05:34→21:14)
[2021-02-14 07:04] LABS: Actual Bicarbonate (HCO3a) 17.7 mEq/L (22-28); Base Excess (BEa) -5.4 mEq/L (-2.0 to +3.0); CO2 Tension 27.3 mmHg (35.0-45.0); Calcium, Ionized (arterial) 1.16 mmol/L (1.12-1.30); Carboxyhemoglobin (COHb) 0.2 gm% (0.0-3.0); Hemoglobin (Hb) 11.7 g/dL (14.0-18.0); O2 Tension (PaO2), arterial 62.9 mmHg (> 80.0); Potassium - ABG Lab 4.67 mmol/L (3.70-5.30); pH, Arterial 7.43 (7.35-7.45)
[2021-02-14 07:38] LABS: Puncture Site Arterial Line
[2021-02-14 07:39] LABS: ALV-art Gradient 615.975 mmHg (0-20)
[2021-02-14] MEDS ORDERED: Lidocaine 1% (PF) 30 ML VIAL ONE ×2 (08:02→08:03)
[2021-02-14] MEDS ORDERED: Digoxin 0.5 MG/2 ML AMP SLOW IVP SCH (08:45)
[2021-02-14] MEDS ORDERED: Alendronate Sodium 70 mg Tablet PO SCH (09:00)
[2021-02-14] MEDS: Famotidine/PF 20 mg/2ml Vial SLOW IVP SCH ×2 (09:11→21:13)
[2021-02-14] MEDS: Enoxaparin Sodium 30 MG/0.3 ML SYRINGE SC SCH (09:12)
[2021-02-14] MEDS: Pantoprazole 40 MG VIAL IVP SCH (09:12)
[2021-02-14] MEDS: Amiodarone 200 MG TAB PO SCH (09:22)
[2021-02-14] MEDS: Ascorbic Acid 500 mg Chewable Tablet PO SCH (09:23)
[2021-02-14] MEDS: Tamsulosin HCl 0.4 MG CAP PO SCH (09:23)
[2021-02-14] MEDS: Amiodarone 450 MG, Admixture Fee 1 EACH in Dextrose 5% in Water 250 ML IVPB SCH (12:03)
[2021-02-14 13:04] LABS: Creatinine, Urine 50.1 mg/dL (63-166)
[2021-02-14 13:29] LABS: Bilirubin Negative (Negative); Blood, Urine 3+ (Negative); Glucose, Urine (Dipstick) Normal (Negative); Ketone, Urine Negative (Negative); Leukocyte 250 Leu/uL (Negative); Nitrite Negative (Negative); Protein, Urine (Dipstick) 50 mg/dL (Neg-Trace); Specific Gravity, Urine 1.021 (1.002-1.036); Squamous Epithelial 0-3 HPF (0-3); Urobilinogen Normal mg/dL (Less than 2); WBC/HPF 21-50 HPF (0-3); Yeast-Budding 2+ HPF (None Seen)
[2021-02-14 13:46] LABS: Bacteria/HPF 1+ HPF (None Seen); Clarity Turbid (Clear)
[2021-02-14 13:47] LABS: Yeast-Hyphae 1+ HPF (None Seen)
[2021-02-14 13:48] LABS: Urine Culture Reflex Yes Yes
[2021-02-14] MEDS: Albumin 25% 25 GM/100 ML BOT IVPB SCH ×2 (13:50→21:13)
[2021-02-14] MEDS: Sodium Bicarbonate 150 MEQ in Dextrose 5% in Water 1,000 ML IV SCH (15:04)
[2021-02-14] MEDS: Multivitamins, Adult 10 ML, TRACE ELEMENT CONCENTRATE 1 ML in D15W-AA 5% with Lytes 2,0... IV SCH (15:45)
[2021-02-14] MEDS: Digoxin 0.5 MG/2 ML AMP SLOW IVP SCH ×2 (15:57→22:35)
[2021-02-14] MEDS: Propofol 1,000 MG/100 ML VIAL IV PRN (19:52)
[2021-02-15] MEDS: Hydrocortisone Sod Succ/PF 100 mg/2 ml Vial IVP SCH ×5 (00:46→23:38)
[2021-02-15] MEDS ORDERED: Fentanyl CADD 100 ML ONE (02:26)
[2021-02-15] MEDS: Fentanyl CADD 100 ML IV SCH (02:32)
[2021-02-15 05:06] LABS: INR-International Normal Ratio 1.2; PTT 34.9 sec (22.9-36.1); Prothrombin Time 15.8 sec (12.0-14.7)
[2021-02-15 05:26] LABS: ALT (SGPT) 164 U/L (8-55); AST (SGOT) 167 U/L (5-34); Albumin 2.6 g/dL (3.4-4.8); Alkaline Phosphatase 97 U/L (40-110); Anion Gap 18 mmol/L (10-20); BUN (Urea Nitrogen) 72 mg/dL (8.4-25.7); Bilirubin, Total 1.6 mg/dL (0.2-1.2); Calc. Creatinine Clearance 38 mL/min (70-130); Calcium 7.8 mg/dL (7.8-10.44); Carbon Dioxide 20 mmol/L (23-31); Cardiac Risk TEST NOT PERFORMED (Less than 4.5); Chloride 107 mmol/L (98-107); Cholesterol 146 mg/dl (< 200 Desired); Globulin 1.6 g/dL (2.4-3.5); Glucose 286 mg/dL (80-115); HDL Cholesterol Less than 8 mg/dL (>60 Neg Risk); Magnesium 1.7 mg/dL (1.6-2.6); Phosphorus 2.2 mg/dL (2.3-4.7); Potassium 3.1 mmol/L (3.5-5.1); Protein, Total 4.2 g/dL (5.8-8.1); Sodium 142 mmol/L (136-145); Triglycerides 541 mg/dL (Less than 150)
[2021-02-15 05:46] LABS: Anisocytosis SLIGHT = 6-15 cells (100X) (0-5/hpf); Band 25 % (5-11); Elliptocytes SLIGHT = 2-5 cells (100X) (0-1/hpf); Hemoglobin 8.1 g/dL (14.0-18.0); Lymphocytes 9 % (21-51); MDiff Complete? YES; Mean Corpuscular HGB CONC 32.6 g/dL (32.0-36.0); Mean Corpuscular Hemoglobin 30.3 pg (27.0-31.0); Mean Corpuscular Volume 92.9 fL (78.0-98.0); Mean Platelet Volume 10.5 fL (7.4-10.4); Neutrophil 66 % (42-75); Nucleated RBC 1 % (0); Platelet Count 82 thou/uL (130-400); Platelet Morphology Comment Appears Decreased; RBC Distribution Width 16.7 % (11.5-14.5); Red Blood Cell (RBC) Count 2.68 mill/uL (4.70-6.10); White Blood Cell (WBC) Count 14.2 thou/uL (4.8-10.8)
[2021-02-15] MEDS: Piperacillin/Tazobactam 3.375 GM in Sodium Chloride 0.9% 100 ML IVPB SCH ×3 (06:02→21:33)
[2021-02-15] MEDS: Albumin 25% 25 GM/100 ML BOT IVPB SCH ×3 (06:02→21:32)
[2021-02-15] MEDS ORDERED: Potassium Chloride 20 MEQ TAB PER TUBE SCH (06:30)
[2021-02-15] MEDS ORDERED: Magnesium 2 GM/50 ML 2 GM in Premix Bag 1 BAG IVPB SCH (06:45)
[2021-02-15 07:07] LABS: Actual Bicarbonate (HCO3a) 24.7 mEq/L (22-28); Base Excess (BEa) 3.4 mEq/L (-2.0 to +3.0); Calcium, Ionized (arterial) 1.01 mmol/L (1.12-1.30); Carboxyhemoglobin (COHb) 0.3 gm% (0.0-3.0); Hemoglobin (Hb) 7.3 g/dL (14.0-18.0); Potassium - ABG Lab 2.83 mmol/L (3.70-5.30)
[2021-02-15 07:08] LABS: pH, Arterial 7.62 (7.35-7.45)
[2021-02-15 07:09] LABS: CO2 Tension 24.8 mmHg (35.0-45.0); O2 Tension (PaO2), arterial 56.4 mmHg (> 80.0); Puncture Site Arterial Line
[2021-02-15] MEDS ORDERED: Potassium Chloride 40 MEQ in Premix Bag 1 BAG IVPB SCH (07:15)
[2021-02-15] MEDS: Ascorbic Acid 500 mg Chewable Tablet PO SCH (07:51)
[2021-02-15] MEDS: Tamsulosin HCl 0.4 MG CAP PO SCH (07:51)
[2021-02-15] MEDS: Amiodarone 200 MG TAB PO SCH (07:51)
[2021-02-15] MEDS ORDERED: Spironolactone 25 MG TAB PER TUBE SCH (08:00)
[2021-02-15 09:58] LABS: Actual Bicarbonate (HCO3a) 26.3 mEq/L (22-28); Base Excess (BEa) 1.3 mEq/L (-2.0 to +3.0); CO2 Tension 43.3 mmHg (35.0-45.0); Calcium, Ionized (arterial) 1.08 mmol/L (1.12-1.30); Carboxyhemoglobin (COHb) 0.2 gm% (0.0-3.0); Hemoglobin (Hb) 8.7 g/dL (14.0-18.0); Potassium - ABG Lab 3.85 mmol/L (3.70-5.30)
[2021-02-15 09:59] LABS: O2 Tension (PaO2), arterial 50.9 mmHg (> 80.0); Puncture Site Arterial Line
[2021-02-15 10:00] LABS: ALV-art Gradient 394.075 mmHg (0-20)
[2021-02-15] MEDS ORDERED: Aspirin 300 MG Suppository PR SCH (10:00)
[2021-02-15] MEDS: Pantoprazole 40 MG VIAL IVP SCH (10:04)
[2021-02-15] MEDS: Insulin Regular 300 UNITS/3 ML VIAL SC PRN ×2 (10:04→16:40)
[2021-02-15] MEDS: Propofol 1,000 MG/100 ML VIAL IV PRN ×2 (11:00→17:19)
[2021-02-15] MEDS ORDERED: Aspirin 300 MG Suppository ONE (11:27)
[2021-02-15] MEDS: Enoxaparin Sodium 30 MG/0.3 ML SYRINGE SC SCH (11:39)
[2021-02-15] MEDS: Sodium Bicarbonate 150 MEQ in Dextrose 5% in Water 1,000 ML IV SCH (13:07)
[2021-02-15] MEDS: Multivitamins, Adult 10 ML, TRACE ELEMENT CONCENTRATE 1 ML in D15W-AA 5% with Lytes 2,0... IV SCH (14:52)
[2021-02-15 15:37] LABS: Hemoglobin 6.8 g/dL (14.0-18.0); Mean Corpuscular HGB CONC 32.6 g/dL (32.0-36.0); Mean Corpuscular Hemoglobin 30.3 pg (27.0-31.0); Platelet Count 65 thou/uL (130-400); RBC Distribution Width 16.6 % (11.5-14.5); Red Blood Cell (RBC) Count 2.25 mill/uL (4.70-6.10)
[2021-02-15 16:07] LABS: Anisocytosis SLIGHT = 6-15 cells (100X) (0-5/hpf); Band 17 % (5-11); Eosinophils 1 % (0-10); Large Platelets SLIGHT; Lymphocytes 1 % (21-51); MDiff Complete? YES; Metamyelocyte 2 % (0-0); Monocytes 1 % (0-10); Myelocyte 2 % (0-0); Neutrophil 76 % (42-75); Nucleated RBC 1 % (0); Ovalocytes SLIGHT = 2-5 cells (100X) (0-1/hpf); Platelet Morphology Comment Appears Decreased; Polychromasia MODERATE = 3-4 cells (100X) (0-2/hpf); Spherocytes SLIGHT = 1-5 cells (100X) (None Seen); Toxic Granulation SLIGHT; Vacuoles SLIGHT; White Blood Cell (WBC) Count 12.8 thou/uL (4.8-10.8)
[2021-02-15 16:25] LABS: Anion Gap 16 mmol/L (10-20); BUN (Urea Nitrogen) 69 mg/dL (8.4-25.7); Calc. Creatinine Clearance 42 mL/min (70-130); Carbon Dioxide 24 mmol/L (23-31); Chloride 107 mmol/L (98-107); Glucose 331 mg/dL (80-115); Magnesium 2.5 mg/dL (1.6-2.6); Potassium 3.1 mmol/L (3.5-5.1); Sodium 144 mmol/L (136-145)
[2021-02-15] MEDS: NPH, Human Insulin Isophane 300 UNIT/3 ML VIAL SC SCH ×2 (16:40→21:33)
[2021-02-15] MEDS ORDERED: EPINEPHrine 1 MG/10 ML Abboject SYRINGE ONE (17:29)
[2021-02-15] MEDS: Famotidine/PF 20 mg/2ml Vial SLOW IVP SCH (20:35)
[2021-02-16] MEDS: Insulin Regular 300 UNITS/3 ML VIAL SC PRN ×4 (03:31→22:03)
[2021-02-16] MEDS: NPH, Human Insulin Isophane 300 UNIT/3 ML VIAL SC SCH ×4 (03:31→22:03)
[2021-02-16] MEDS: Propofol 1,000 MG/100 ML VIAL IV PRN ×3 (03:41→20:22)
[2021-02-16 04:19] LABS: INR-International Normal Ratio 1.2; PTT 30.1 sec (22.9-36.1); Prothrombin Time 15.1 sec (12.0-14.7)
[2021-02-16 04:27] LABS: Hemoglobin 10.1 g/dL (14.0-18.0); Mean Corpuscular HGB CONC 34.2 g/dL (32.0-36.0); Mean Corpuscular Hemoglobin 30.9 pg (27.0-31.0); Mean Corpuscular Volume 90.4 fL (78.0-98.0); Mean Platelet Volume 10.9 fL (7.4-10.4); Platelet Count 69 thou/uL (130-400); RBC Distribution Width 18.1 % (11.5-14.5); Red Blood Cell (RBC) Count 3.26 mill/uL (4.70-6.10); White Blood Cell (WBC) Count 13.6 thou/uL (4.8-10.8)
[2021-02-16 04:36] LABS: ALT (SGPT) 110 U/L (8-55); AST (SGOT) 83 U/L (5-34); Albumin 3.2 g/dL (3.4-4.8); Alkaline Phosphatase 97 U/L (40-110); Anion Gap 12 mmol/L (10-20); BUN (Urea Nitrogen) 62 mg/dL (8.4-25.7); Bilirubin, Total 2.2 mg/dL (0.2-1.2); Calc. Creatinine Clearance 50 mL/min (70-130); Calcium 8.1 mg/dL (7.8-10.44); Carbon Dioxide 30 mmol/L (23-31); Chloride 104 mmol/L (98-107); Cholesterol 125 mg/dl (< 200 Desired); Globulin 1.5 g/dL (2.4-3.5); Glucose 285 mg/dL (80-115); HDL Cholesterol Less than 8 mg/dL (>60 Neg Risk); Magnesium 2.3 mg/dL (1.6-2.6); Phosphorus 2.2 mg/dL (2.3-4.7); Protein, Total 4.7 g/dL (5.8-8.1); Sodium 143 mmol/L (136-145); Triglycerides 473 mg/dL (Less than 150)
[2021-02-16 04:45] LABS: Potassium 2.8 mmol/L (3.5-5.1)
[2021-02-16 05:00] LABS: Band 22 % (5-11); Lymphocytes 3 % (21-51); MDiff Complete? YES; Metamyelocyte 1 % (0-0); Monocytes 2 % (0-10); Myelocyte 5 % (0-0); Neutrophil 67 % (42-75); Nucleated RBC 4 % (0); Platelet Morphology Comment Appears Decreased
[2021-02-16 05:04] LABS: Cardiac Risk TEST NOT PERFORMED (Less than 4.5)
[2021-02-16] MEDS: Hydrocortisone Sod Succ/PF 100 mg/2 ml Vial IVP SCH ×4 (05:05→23:44)
[2021-02-16] MEDS: Albumin 25% 25 GM/100 ML BOT IVPB SCH ×2 (05:05→20:20)
[2021-02-16] MEDS: Piperacillin/Tazobactam 3.375 GM in Sodium Chloride 0.9% 100 ML IVPB SCH ×3 (05:06→22:03)
[2021-02-16] MEDS ORDERED: Electrolyte Replacement Protocol 1 EACH FS PRN (05:56)
[2021-02-16] MEDS: Potassium Chloride 40 MEQ in Premix Bag 1 BAG IVPB SCH ×2 (06:21→09:15)
[2021-02-16] MEDS ORDERED: Potassium Phosphate 30 MMOL in Sodium Chloride 0.9% 250 ML 250 ML IVPB SCH (09:00)
[2021-02-16] MEDS ORDERED: Enoxaparin Sodium 30 MG/0.3 ML SYRINGE SC SCH (09:00)
[2021-02-16] MEDS: Amiodarone 450 MG, Admixture Fee 1 EACH in Dextrose 5% in Water 250 ML IVPB SCH (09:14)
[2021-02-16] MEDS ORDERED: Fentanyl CADD 100 ML ONE (09:48)
[2021-02-16] MEDS: Fentanyl CADD 100 ML IV SCH (09:57)
[2021-02-16] MEDS: Tamsulosin HCl 0.4 MG CAP PO SCH (10:37)
[2021-02-16] MEDS: Furosemide 20 MG/2 ML VIAL SLOW IVP SCH ×2 (13:03→22:03)
[2021-02-16 13:14] LABS: Potassium 3.9 mmol/L (3.5-5.1)
[2021-02-16] MEDS: Spironolactone 100 MG TAB PER TUBE SCH ×2 (14:37→15:22)
[2021-02-16] MEDS: Multivitamins, Adult 10 ML, TRACE ELEMENT CONCENTRATE 1 ML in D15W-AA 5% with Lytes 2,0... IV SCH (14:38)
[2021-02-16] MEDS: Enoxaparin Sodium 30 MG/0.3 ML SYRINGE SC SCH (19:08)
[2021-02-16] MEDS: Famotidine/PF 20 mg/2ml Vial SLOW IVP SCH (20:20)
[2021-02-17] MEDS: Amiodarone 450 MG, Admixture Fee 1 EACH in Dextrose 5% in Water 250 ML IVPB SCH (00:33)
[2021-02-17] MEDS: NPH, Human Insulin Isophane 300 UNIT/3 ML VIAL SC SCH ×4 (03:44→22:12)
[2021-02-17 04:39] LABS: INR-International Normal Ratio 1.1; PTT 26.7 sec (22.9-36.1)
[2021-02-17] MEDS: Piperacillin/Tazobactam 3.375 GM in Sodium Chloride 0.9% 100 ML IVPB SCH ×3 (05:00→20:43)
[2021-02-17] MEDS: Furosemide 20 MG/2 ML VIAL SLOW IVP SCH (05:01)
[2021-02-17] MEDS: Hydrocortisone Sod Succ/PF 100 mg/2 ml Vial IVP SCH ×3 (05:01→16:47)
[2021-02-17 05:11] LABS: ALT (SGPT) 69 U/L (8-55); AST (SGOT) 45 U/L (5-34); Albumin 3.3 g/dL (3.4-4.8); Alkaline Phosphatase 117 U/L (40-110); Anion Gap 15 mmol/L (10-20); Anisocytosis SLIGHT = 6-15 cells (100X) (0-5/hpf); BUN (Urea Nitrogen) 57 mg/dL (8.4-25.7); Band 8 % (5-11); Bilirubin, Total 1.6 mg/dL (0.2-1.2); Calc. Creatinine Clearance 0 mL/min (70-130); Calcium 7.9 mg/dL (7.8-10.44); Carbon Dioxide 30 mmol/L (23-31); Chloride 105 mmol/L (98-107); Cholesterol 124 mg/dl (< 200 Desired); Globulin 1.4 g/dL (2.4-3.5); Glucose 177 mg/dL (80-115); HDL Cholesterol Less than 8 mg/dL (>60 Neg Risk); Lymphocytes 13 % (21-51); MDiff Complete? YES; Magnesium 2.1 mg/dL (1.6-2.6); Mean Corpuscular HGB CONC 32.8 g/dL (32.0-36.0); Mean Corpuscular Hemoglobin 29.5 pg (27.0-31.0); Mean Platelet Volume 11.1 fL (7.4-10.4); Neutrophil 79 % (42-75); Phosphorus 3.4 mg/dL (2.3-4.7); Platelet Count 79 thou/uL (130-400); Platelet Morphology Comment Appears Decreased; Potassium 3.3 mmol/L (3.5-5.1); Protein, Total 4.7 g/dL (5.8-8.1); RBC Distribution Width 18.7 % (11.5-14.5); Red Blood Cell (RBC) Count 2.71 mill/uL (4.70-6.10); Sodium 147 mmol/L (136-145); Triglycerides 277 mg/dL (Less than 150); White Blood Cell (WBC) Count 17.1 thou/uL (4.8-10.8)
[2021-02-17] MEDS: Propofol 1,000 MG/100 ML VIAL IV PRN ×2 (05:11→14:49)
[2021-02-17] MEDS ORDERED: Fentanyl CADD 100 ML ONE (06:02)
[2021-02-17] MEDS: Fentanyl CADD 100 ML IV SCH (06:12)
[2021-02-17] MEDS ORDERED: Potassium Chloride 20 MEQ TAB PO SCH (08:00)
[2021-02-17] MEDS ORDERED: Amiodarone 450 MG, Admixture Fee 1 EACH in Dextrose 5% in Water 250 ML IVPB SCH (08:51)
[2021-02-17] MEDS: Tamsulosin HCl 0.4 MG CAP PO SCH (09:11)
[2021-02-17] MEDS: Albumin 25% 25 GM/100 ML BOT IVPB SCH ×2 (09:11→20:43)
[2021-02-17] MEDS: Spironolactone 100 MG TAB PER TUBE SCH (09:11)
[2021-02-17] MEDS: Insulin Regular 300 UNITS/3 ML VIAL SC PRN ×2 (09:53→16:47)
[2021-02-17] MEDS ORDERED: Potassium Chloride 40 MEQ in Premix Bag 1 BAG IVPB SCH ×2 (10:45→11:15)
[2021-02-17] MEDS: Multivitamins, Adult 10 ML, TRACE ELEMENT CONCENTRATE 1 ML in D15W-AA 5% with Lytes 2,0... IV SCH (14:19)
[2021-02-17 15:52] LABS: Potassium 4.3 mmol/L (3.5-5.1)
[2021-02-17] MEDS: Famotidine/PF 20 mg/2ml Vial SLOW IVP SCH (20:42)
[2021-02-18] MEDS: Hydrocortisone Sod Succ/PF 100 mg/2 ml Vial IVP SCH ×4 (00:22→17:41)
[2021-02-18] MEDS ORDERED: Fentanyl CADD 100 ML ONE (02:20)
[2021-02-18] MEDS: Fentanyl CADD 100 ML IV SCH (02:27)
[2021-02-18] MEDS: NPH, Human Insulin Isophane 300 UNIT/3 ML VIAL SC SCH ×4 (03:35→21:45)
[2021-02-18 04:24] LABS: INR-International Normal Ratio 1.1; PTT 26.2 sec (22.9-36.1); Prothrombin Time 14.7 sec (12.0-14.7)
[2021-02-18 04:41] LABS: ALT (SGPT) 51 U/L (8-55); AST (SGOT) 37 U/L (5-34); Albumin 3.4 g/dL (3.4-4.8); Alkaline Phosphatase 115 U/L (40-110); Anion Gap 13 mmol/L (10-20); BUN (Urea Nitrogen) 60 mg/dL (8.4-25.7); Bilirubin, Total 1.3 mg/dL (0.2-1.2); Calc. Creatinine Clearance 0 mL/min (70-130); Calcium 8.8 mg/dL (7.8-10.44); Carbon Dioxide 29 mmol/L (23-31); Chloride 108 mmol/L (98-107); Cholesterol 126 mg/dl (< 200 Desired); Globulin 1.9 g/dL (2.4-3.5); Glucose 209 mg/dL (80-115); HDL Cholesterol 9 mg/dL (>60 Neg Risk); LDL Cholesterol, Calculated 63 mg/dL; Magnesium 2.2 mg/dL (1.6-2.6); Potassium 3.4 mmol/L (3.5-5.1); Protein, Total 5.3 g/dL (5.8-8.1); Sodium 147 mmol/L (136-145); Triglycerides 272 mg/dL (Less than 150)
[2021-02-18 04:55] LABS: Hemoglobin 7.8 g/dL (14.0-18.0); Mean Corpuscular Hemoglobin 29.9 pg (27.0-31.0); Mean Corpuscular Volume 90.8 fL (78.0-98.0); Mean Platelet Volume 11.4 fL (7.4-10.4); Platelet Count 91 thou/uL (130-400); RBC Distribution Width 18.4 % (11.5-14.5); White Blood Cell (WBC) Count 16.2 thou/uL (4.8-10.8)
[2021-02-18 04:56] LABS: Band 10 % (5-11); Large Platelets SLIGHT; Lymphocytes 5 % (21-51); MDiff Complete? YES; Neutrophil 85 % (42-75); Platelet Morphology Comment Appears Decreased
[2021-02-18] MEDS ORDERED: Potassium Chloride 40 MEQ in Premix Bag 1 BAG IVPB SCH ×2 (05:00→23:59)
[2021-02-18] MEDS: Propofol 1,000 MG/100 ML VIAL IV PRN ×2 (05:20→17:42)
[2021-02-18] MEDS: Piperacillin/Tazobactam 3.375 GM in Sodium Chloride 0.9% 100 ML IVPB SCH ×2 (05:20→15:08)
[2021-02-18] MEDS: Albumin 25% 25 GM/100 ML BOT IVPB SCH (08:18)
[2021-02-18] MEDS: Famotidine/PF 20 mg/2ml Vial SLOW IVP SCH ×2 (08:19→20:21)
[2021-02-18] MEDS: Spironolactone 100 MG TAB PER TUBE SCH (08:19)
[2021-02-18] MEDS: Tamsulosin HCl 0.4 MG CAP PO SCH (08:20)
[2021-02-18] MEDS ORDERED: Metolazone 5 MG TAB PER TUBE SCH (08:30)
[2021-02-18] MEDS: Insulin Regular 300 UNITS/3 ML VIAL SC PRN ×2 (10:24→17:43)
[2021-02-18] MEDS: Amiodarone 200 MG TAB PO SCH ×3 (10:26→20:21)
[2021-02-18] MEDS: Multivitamins, Adult 10 ML, TRACE ELEMENT CONCENTRATE 1 ML in D15W-AA 5% with Lytes 2,0... IV SCH (14:55)
[2021-02-18] MEDS ORDERED: Potassium Bicarbonate/Cit Ac 20 MEQ TAB PER TUBE SCH (18:45)
[2021-02-18 23:26] LABS: Potassium 3.4 mmol/L (3.5-5.1)
[2021-02-19] MEDS: Hydrocortisone Sod Succ/PF 100 mg/2 ml Vial IVP SCH ×5 (00:50→23:53)
[2021-02-19] MEDS: NPH, Human Insulin Isophane 300 UNIT/3 ML VIAL SC SCH ×4 (03:53→21:46)
[2021-02-19] MEDS ORDERED: Fentanyl CADD 100 ML ONE (04:02)
[2021-02-19] MEDS: Fentanyl CADD 100 ML IV SCH (04:05)
[2021-02-19 04:53] LABS: INR-International Normal Ratio 1.1; PTT 25.4 sec (22.9-36.1); Prothrombin Time 14.1 sec (12.0-14.7)
[2021-02-19 04:54] LABS: Band 7 % (5-11); Hemoglobin 7.8 g/dL (14.0-18.0); Lymphocytes 5 % (21-51); MDiff Complete? YES; Mean Corpuscular HGB CONC 32.2 g/dL (32.0-36.0); Mean Corpuscular Hemoglobin 29.4 pg (27.0-31.0); Mean Corpuscular Volume 91.4 fL (78.0-98.0); Mean Platelet Volume 10.5 fL (7.4-10.4); Monocytes 3 % (0-10); Neutrophil 85 % (42-75); Ovalocytes SLIGHT = 2-5 cells (100X) (0-1/hpf); Platelet Count 120 thou/uL (130-400); Platelet Morphology Comment Appears Decreased; Polychromasia SLIGHT = 2-3 cells (100X) (0-2/hpf); RBC Distribution Width 18.7 % (11.5-14.5); Red Blood Cell (RBC) Count 2.67 mill/uL (4.70-6.10); White Blood Cell (WBC) Count 19.6 thou/uL (4.8-10.8)
[2021-02-19 05:05] LABS: ALT (SGPT) 43 U/L (8-55); AST (SGOT) 38 U/L (5-34); Albumin 3.2 g/dL (3.4-4.8); Alkaline Phosphatase 105 U/L (40-110); Anion Gap 11 mmol/L (10-20); BUN (Urea Nitrogen) 54 mg/dL (8.4-25.7); Bilirubin, Total 1.4 mg/dL (0.2-1.2); Calc. Creatinine Clearance 84 mL/min (70-130); Carbon Dioxide 31 mmol/L (23-31); Cardiac Risk 8.9 (Less than 4.5); Chloride 109 mmol/L (98-107); Cholesterol 133 mg/dl (< 200 Desired); Globulin 1.7 g/dL (2.4-3.5); Glucose 186 mg/dL (80-115); HDL Cholesterol 15 mg/dL (>60 Neg Risk); LDL Cholesterol, Calculated 90 mg/dL; Magnesium 2.2 mg/dL (1.6-2.6); Phosphorus 3.3 mg/dL (2.3-4.7); Potassium 3.6 mmol/L (3.5-5.1); Protein, Total 4.9 g/dL (5.8-8.1); Sodium 147 mmol/L (136-145); Triglycerides 142 mg/dL (Less than 150)
[2021-02-19 07:43] LABS: Actual Bicarbonate (HCO3a) 27.9 mEq/L (22-28); Base Excess (BEa) 4.5 mEq/L (-2.0 to +3.0); CO2 Tension 36.6 mmHg (35.0-45.0); Calcium, Ionized (arterial) 1.13 mmol/L (1.12-1.30); Carboxyhemoglobin (COHb) 0.1 gm% (0.0-3.0); Hemoglobin (Hb) 8.9 g/dL (14.0-18.0); O2 Tension (PaO2), arterial 93.7 mmHg (> 80.0)
[2021-02-19] MEDS ORDERED: Dextrose 5% in Water 1,000 ML IV SCH (07:45)
[2021-02-19] MEDS: Spironolactone 100 MG TAB PER TUBE SCH ×2 (08:40→21:50)
[2021-02-19] MEDS: Tamsulosin HCl 0.4 MG CAP PO SCH (08:40)
[2021-02-19] MEDS: Famotidine/PF 20 mg/2ml Vial SLOW IVP SCH ×2 (08:40→21:43)
[2021-02-19] MEDS: Metolazone 5 MG TAB PER TUBE SCH (08:41)
[2021-02-19] MEDS: Amiodarone 200 MG TAB PO SCH ×3 (08:41→21:44)
[2021-02-19 09:02] LABS: Puncture Site RRA
[2021-02-19] MEDS: Propofol 1,000 MG/100 ML VIAL IV PRN ×2 (09:32→18:46)
[2021-02-19] MEDS: Insulin Regular 300 UNITS/3 ML VIAL SC PRN ×2 (10:03→22:51)
[2021-02-19] MEDS ORDERED: Torsemide 10 MG TAB PO SCH (14:15)
[2021-02-19] MEDS: Multivitamins, Adult 10 ML, TRACE ELEMENT CONCENTRATE 1 ML in D15W-AA 5% with Lytes 2,0... IV SCH (15:45)
[2021-02-19] MEDS ORDERED: Albumin 25% 100 ML ONE (15:49)
[2021-02-19] MEDS: Albumin 25% 25 GM/100 ML BOT IVPB SCH ×2 (15:49→21:45)
[2021-02-19] MEDS ORDERED: Metoprolol Tartrate 5 MG/5 ML VIAL IVP SCH (19:30)
[2021-02-20] MEDS: Fentanyl CADD 100 ML IV SCH (01:49)
[2021-02-20 04:39] LABS: Hemoglobin 7.4 g/dL (14.0-18.0); Mean Corpuscular HGB CONC 32.5 g/dL (32.0-36.0); Mean Corpuscular Hemoglobin 30.1 pg (27.0-31.0); Mean Corpuscular Volume 92.4 fL (78.0-98.0); Mean Platelet Volume 10.2 fL (7.4-10.4); Platelet Count 150 thou/uL (130-400); Red Blood Cell (RBC) Count 2.47 mill/uL (4.70-6.10); White Blood Cell (WBC) Count 19.4 thou/uL (4.8-10.8)
[2021-02-20 04:40] LABS: Band 25 % (5-11); Hypochromia SLIGHT = 6-15 cells (100X) (0-5/hpf); Lymphocytes 4 % (21-51); MDiff Complete? YES; Neutrophil 71 % (42-75); Platelet Morphology Comment Appears Adequate
[2021-02-20 04:58] LABS: Anion Gap 15 mmol/L (10-20); BUN (Urea Nitrogen) 52 mg/dL (8.4-25.7); Calc. Creatinine Clearance 73 mL/min (70-130); Calcium 9.3 mg/dL (7.8-10.44); Carbon Dioxide 30 mmol/L (23-31); Chloride 103 mmol/L (98-107); Glucose 194 mg/dL (80-115); Sodium 146 mmol/L (136-145)
[2021-02-20] MEDS: Potassium Chloride 40 MEQ in Premix Bag 1 BAG IVPB SCH ×2 (05:19→09:47)
[2021-02-20] MEDS: Albumin 25% 25 GM/100 ML BOT IVPB SCH (05:20)
[2021-02-20] MEDS: NPH, Human Insulin Isophane 300 UNIT/3 ML VIAL SC SCH ×4 (05:21→22:31)
[2021-02-20] MEDS: Hydrocortisone Sod Succ/PF 100 mg/2 ml Vial IVP SCH ×4 (06:37→23:08)
[2021-02-20] MEDS: Insulin Regular 300 UNITS/3 ML VIAL SC PRN ×2 (06:39→23:32)
[2021-02-20] MEDS: Metolazone 5 MG TAB PER TUBE SCH (09:47)
[2021-02-20] MEDS: Spironolactone 100 MG TAB PER TUBE SCH ×2 (09:47→20:10)
[2021-02-20] MEDS: Potassium Chloride 20 MEQ TAB PER TUBE SCH ×5 (09:47→22:36)
[2021-02-20] MEDS: Amiodarone 200 MG TAB PO SCH ×3 (09:47→20:09)
[2021-02-20] MEDS: Tamsulosin HCl 0.4 MG CAP PO SCH (09:47)
[2021-02-20] MEDS: Famotidine/PF 20 mg/2ml Vial SLOW IVP SCH ×2 (09:47→20:10)
[2021-02-20] MEDS: Torsemide 10 MG TAB PO SCH (09:47)
[2021-02-20 11:42] LABS: Phosphorus 2.9 mg/dL (2.3-4.7)
[2021-02-20] MEDS: Morphine 4 MG/ML VIAL SLOW IVP PRN (13:17)
[2021-02-20] MEDS ORDERED: Acetaminophen 325 MG TAB PO PRN (13:42)
[2021-02-20] MEDS: Acetaminophen 650 MG/20.3 ML UDCUP PER TUBE PRN (14:02)
[2021-02-20 14:57] LABS: Magnesium 2.1 mg/dL (1.6-2.6)
[2021-02-20 15:02] LABS: Potassium 2.5 mmol/L (3.5-5.1)
[2021-02-20] MEDS: Multivitamins, Adult 10 ML, TRACE ELEMENT CONCENTRATE 1 ML in D15W-AA 5% with Lytes 2,0... IV SCH (15:04)
[2021-02-20] MEDS: Lorazepam 2 MG/ML VIAL SLOW IVP PRN (17:17)
[2021-02-21] MEDS: Lorazepam 2 MG/ML VIAL SLOW IVP PRN ×4 (00:28→23:40)
[2021-02-21 04:19] LABS: Albumin 3.3 g/dL (3.4-4.8); Anion Gap 13 mmol/L (10-20); BUN (Urea Nitrogen) 48 mg/dL (8.4-25.7); BUN/Creatinine Ratio 57.14; Calc. Creatinine Clearance 82 mL/min (70-130); Calcium 9.7 mg/dL (7.8-10.44); Carbon Dioxide 33 mmol/L (23-31); Chloride 102 mmol/L (98-107); Glucose 219 mg/dL (80-115); Magnesium 2.2 mg/dL (1.6-2.6); Phosphorus 2.9 mg/dL (2.3-4.7); Sodium 145 mmol/L (136-145)
[2021-02-21 04:20] LABS: Iron 29 ug/dL (65-175); Iron Binding Capacity, Total 114 mcg/dL (261-462)
[2021-02-21 04:38] LABS: Potassium 2.9 mmol/L (3.5-5.1)
[2021-02-21] MEDS: Potassium Chloride 40 MEQ in Premix Bag 1 BAG IVPB SCH ×2 (04:50→07:45)
[2021-02-21] MEDS: NPH, Human Insulin Isophane 300 UNIT/3 ML VIAL SC SCH ×4 (04:51→21:19)
[2021-02-21] MEDS: Hydrocortisone Sod Succ/PF 100 mg/2 ml Vial IVP SCH ×3 (05:01→17:22)
[2021-02-21 05:05] LABS: Anisocytosis SLIGHT = 6-15 cells (100X) (0-5/hpf); Band 10 % (5-11); Elliptocytes SLIGHT = 2-5 cells (100X) (0-1/hpf); Hemoglobin 7.8 g/dL (14.0-18.0); Lymphocytes 2 % (21-51); MDiff Complete? YES; Mean Corpuscular HGB CONC 32.3 g/dL (32.0-36.0); Mean Corpuscular Hemoglobin 29.9 pg (27.0-31.0); Mean Corpuscular Volume 92.7 fL (78.0-98.0); Neutrophil 88 % (42-75); Ovalocytes SLIGHT = 2-5 cells (100X) (0-1/hpf); Platelet Count 168 thou/uL (130-400); Platelet Morphology Comment Appears Adequate; Polychromasia SLIGHT = 2-3 cells (100X) (0-2/hpf); RBC Distribution Width 19.2 % (11.5-14.5); Red Blood Cell (RBC) Count 2.59 mill/uL (4.70-6.10); Tear Drops SLIGHT = 2-5 cells (100X) (0-1/hpf); White Blood Cell (WBC) Count 16.9 thou/uL (4.8-10.8)
[2021-02-21] MEDS: Insulin Regular 300 UNITS/3 ML VIAL SC PRN ×2 (05:15→22:04)
[2021-02-21] MEDS: Famotidine/PF 20 mg/2ml Vial SLOW IVP SCH ×2 (07:44→20:13)
[2021-02-21] MEDS: Metolazone 5 MG TAB PER TUBE SCH (07:45)
[2021-02-21] MEDS: Potassium Chloride 20 MEQ TAB PER TUBE SCH ×3 (07:45→13:33)
[2021-02-21] MEDS: Tamsulosin HCl 0.4 MG CAP PO SCH (07:45)
[2021-02-21] MEDS: Torsemide 10 MG TAB PO SCH (07:45)
[2021-02-21] MEDS: Amiodarone 200 MG TAB PO SCH ×3 (07:45→20:02)
[2021-02-21] MEDS ORDERED: Spironolactone 100 MG TAB PO SCH (08:00)
[2021-02-21] MEDS: Morphine 4 MG/ML VIAL SLOW IVP PRN ×2 (09:46→11:31)
[2021-02-21] MEDS ORDERED: VANCOMYCIN 1.25 GM/250 ML BAG 1.25 GM in Premix Bag 1 BAG IVPB SCH (11:00)
[2021-02-21] MEDS ORDERED: MEROPENEM 1 GM/50 ML 1 GM in Premix Bag 1 BAG IVPB SCH (12:00)
[2021-02-21] MEDS: Multivitamins, Adult 10 ML, TRACE ELEMENT CONCENTRATE 1 ML in D15W-AA 5% with Lytes 2,0... IV SCH (13:56)
[2021-02-21] MEDS ORDERED: Meropenem 1 GM in Sodium Chloride 0.9% 100 ML IVPB SCH (14:00)
[2021-02-21] MEDS: Vancomycin 1 GM in Premix Bag 1 BAG IVPB SCH (14:08)
[2021-02-21 16:07] LABS: Albumin 3.1 g/dL (3.4-4.8); Anion Gap 10 mmol/L (10-20); BUN (Urea Nitrogen) 49 mg/dL (8.4-25.7); BUN/Creatinine Ratio 60.49; Calc. Creatinine Clearance 85 mL/min (70-130); Calcium 9.4 mg/dL (7.8-10.44); Carbon Dioxide 37 mmol/L (23-31); Chloride 102 mmol/L (98-107); Glucose 216 mg/dL (80-115); Phosphorus 2.8 mg/dL (2.3-4.7); Potassium 3.1 mmol/L (3.5-5.1); Sodium 146 mmol/L (136-145)
[2021-02-21] MEDS: Potassium Bicarbonate/Cit Ac 20 MEQ TAB PER TUBE SCH ×2 (16:28→19:49)
[2021-02-21] MEDS: MEROPENEM 1 GM/50 ML 1 GM in Premix Bag 1 BAG IVPB SCH (20:13)
[2021-02-21] MEDS: Spironolactone 100 MG TAB PO SCH (20:15)
[2021-02-22] MEDS: Hydrocortisone Sod Succ/PF 100 mg/2 ml Vial IVP SCH ×4 (00:31→18:00)
[2021-02-22] MEDS: Vancomycin 1 GM in Premix Bag 1 BAG IVPB SCH (01:17)
[2021-02-22] MEDS: Morphine 4 MG/ML VIAL SLOW IVP PRN ×2 (02:05→10:27)
[2021-02-22] MEDS: Lorazepam 2 MG/ML VIAL SLOW IVP PRN ×2 (02:11→10:36)
[2021-02-22] MEDS ORDERED: Metoprolol Tartrate 5 MG/5 ML VIAL IVP SCH (02:30)
[2021-02-22 02:57] LABS: Band 9 % (5-11); Hemoglobin 8.6 g/dL (14.0-18.0); Hypochromia SLIGHT = 6-15 cells (100X) (0-5/hpf); MDiff Complete? YES; Mean Corpuscular HGB CONC 30.9 g/dL (32.0-36.0); Mean Corpuscular Hemoglobin 28.7 pg (27.0-31.0); Mean Corpuscular Volume 93.1 fL (78.0-98.0); Mean Platelet Volume 9.9 fL (7.4-10.4); Monocytes 18 % (0-10); Neutrophil 73 % (42-75); Platelet Count 201 thou/uL (130-400); Platelet Morphology Comment Appears Adequate; RBC Distribution Width 19.8 % (11.5-14.5); Red Blood Cell (RBC) Count 2.97 mill/uL (4.70-6.10); White Blood Cell (WBC) Count 12.6 thou/uL (4.8-10.8)
[2021-02-22] MEDS ORDERED: Lorazepam 2 MG/ML VIAL SLOW IVP SCH (03:15)
[2021-02-22 03:16] LABS: Albumin 2.9 g/dL (3.4-4.8); Anion Gap 13 mmol/L (10-20); BUN (Urea Nitrogen) 50 mg/dL (8.4-25.7); Calc. Creatinine Clearance 88 mL/min (70-130); Calcium 9.6 mg/dL (7.8-10.44); Carbon Dioxide 34 mmol/L (23-31); Chloride 101 mmol/L (98-107); Glucose 146 mg/dL (80-115); Magnesium 2.1 mg/dL (1.6-2.6); Phosphorus 2.3 mg/dL (2.3-4.7); Potassium 3.5 mmol/L (3.5-5.1); Sodium 144 mmol/L (136-145)
[2021-02-22] MEDS: NPH, Human Insulin Isophane 300 UNIT/3 ML VIAL SC SCH ×4 (03:37→21:12)
[2021-02-22] MEDS ORDERED: Potassium Bicarbonate/Cit Ac 20 MEQ TAB PER TUBE SCH (04:00)
[2021-02-22] MEDS: MEROPENEM 1 GM/50 ML 1 GM in Premix Bag 1 BAG IVPB SCH ×3 (05:21→20:51)
[2021-02-22] MEDS: Insulin Regular 300 UNITS/3 ML VIAL SC PRN (05:48)
[2021-02-22] MEDS: Tamsulosin HCl 0.4 MG CAP PO SCH (08:08)
[2021-02-22] MEDS: Amiodarone 200 MG TAB PO SCH ×3 (08:08→20:50)
[2021-02-22] MEDS: Famotidine/PF 20 mg/2ml Vial SLOW IVP SCH ×2 (08:08→20:50)
[2021-02-22] MEDS: Torsemide 10 MG TAB PO SCH (08:08)
[2021-02-22] MEDS: Metolazone 5 MG TAB PER TUBE SCH (08:08)
[2021-02-22] MEDS: Spironolactone 100 MG TAB PO SCH (08:09)
[2021-02-22] MEDS ORDERED: Metoprolol Tartrate 25 MG TAB PO SCH ×2 (11:15→11:23)
[2021-02-22] MEDS ORDERED: Potassium Bicarbonate/Cit Ac 20 MEQ TAB PO SCH (11:15)
[2021-02-22] MEDS ORDERED: FLUoxetine HCl 20 MG/5 ML UDCUP PER TUBE SCH (11:15)
[2021-02-22] MEDS ORDERED: Iopamidol 370 76% 100 ML VIAL ONE (11:18)
[2021-02-22] MEDS: Amiodarone 450 MG, Admixture Fee 1 EACH in Dextrose 5% in Water 250 ML IVPB SCH ×2 (13:43→23:52)
[2021-02-22] MEDS: clonazePAM 0.5 MG TAB PO SCH ×2 (13:43→21:13)
[2021-02-22] MEDS: Multivitamins, Adult 10 ML, TRACE ELEMENT CONCENTRATE 1 ML in D15W-AA 5% with Lytes 2,0... IV SCH (13:47)
[2021-02-22] MEDS ORDERED: Lactated Ringer's 500 ML IV SCH (15:45)
[2021-02-22] MEDS: Metoprolol Tartrate 25 MG TAB PO SCH (20:51)
[2021-02-23] MEDS: Hydrocortisone Sod Succ/PF 100 mg/2 ml Vial IVP SCH ×4 (02:19→16:58)
[2021-02-23] MEDS: MEROPENEM 1 GM/50 ML 1 GM in Premix Bag 1 BAG IVPB SCH ×2 (03:46→11:43)
[2021-02-23] MEDS: NPH, Human Insulin Isophane 300 UNIT/3 ML VIAL SC SCH ×4 (03:48→22:38)
[2021-02-23 04:50] LABS: Albumin 2.4 g/dL (3.4-4.8); Anion Gap 14 mmol/L (10-20); BUN (Urea Nitrogen) 52 mg/dL (8.4-25.7); Calc. Creatinine Clearance 84 mL/min (70-130); Calcium 8.8 mg/dL (7.8-10.44); Carbon Dioxide 35 mmol/L (23-31); Chloride 95 mmol/L (98-107); Glucose 157 mg/dL (80-115); Magnesium 2.2 mg/dL (1.6-2.6); Phosphorus 3.8 mg/dL (2.3-4.7); Potassium 3.2 mmol/L (3.5-5.1); Sodium 141 mmol/L (136-145)
[2021-02-23 04:58] LABS: Band 16 % (5-11); Hemoglobin 7.8 g/dL (14.0-18.0); Hypochromia SLIGHT = 6-15 cells (100X) (0-5/hpf); Lymphocytes 2 % (21-51); MDiff Complete? YES; Mean Corpuscular HGB CONC 31.2 g/dL (32.0-36.0); Mean Corpuscular Hemoglobin 29.7 pg (27.0-31.0); Mean Platelet Volume 9.7 fL (7.4-10.4); Metamyelocyte 4 % (0-0); Monocytes 3 % (0-10); Neutrophil 75 % (42-75); Platelet Count 184 thou/uL (130-400); Platelet Morphology Comment Appears Adequate; RBC Distribution Width 19.3 % (11.5-14.5); Red Blood Cell (RBC) Count 2.63 mill/uL (4.70-6.10); White Blood Cell (WBC) Count 10.8 thou/uL (4.8-10.8)
[2021-02-23] MEDS: clonazePAM 0.5 MG TAB PO SCH ×3 (06:12→21:06)
[2021-02-23] MEDS ORDERED: Potassium Bicarbonate/Cit Ac 20 MEQ TAB PER TUBE SCH (07:00)
[2021-02-23] MEDS: Albumin 25% 25 GM/100 ML BOT IVPB SCH ×3 (08:48→21:06)
[2021-02-23] MEDS: Metoprolol Tartrate 25 MG TAB PO SCH ×2 (08:49→21:06)
[2021-02-23] MEDS: Amiodarone 200 MG TAB PO SCH ×3 (08:49→21:06)
[2021-02-23] MEDS: FLUoxetine HCl 20 MG/5 ML UDCUP PER TUBE SCH (08:49)
[2021-02-23] MEDS: Tamsulosin HCl 0.4 MG CAP PO SCH (08:49)
[2021-02-23] MEDS: Famotidine/PF 20 mg/2ml Vial SLOW IVP SCH ×2 (08:49→21:07)
[2021-02-23] MEDS: Amiodarone 450 MG, Admixture Fee 1 EACH in Dextrose 5% in Water 250 ML IVPB SCH (11:44)
[2021-02-23] MEDS: Multivitamins, Adult 10 ML, TRACE ELEMENT CONCENTRATE 1 ML in D15W-AA 5% with Lytes 2,0... IV SCH (14:07)
[2021-02-23] MEDS: Octreotide Acetate 50 MCG in Sodium Chloride 0.9% 50 ML IVPB SCH ×2 (14:07→22:38)
[2021-02-23] MEDS ORDERED: Piperacillin/Tazobactam 3.375 GM in Sodium Chloride 0.9% 100 ML IVPB SCH ×2 (16:00→18:00)
[2021-02-23] MEDS: Piperacillin/Tazobactam 3.375 GM in Sodium Chloride 0.9% 100 ML IVPB SCH (21:02)
[2021-02-23] MEDS: Meropenem 1 GM in Sodium Chloride 0.9% 100 ML IVPB SCH (21:04)
[2021-02-24] MEDS: Hydrocortisone Sod Succ/PF 100 mg/2 ml Vial IVP SCH ×4 (00:06→20:29)
[2021-02-24] MEDS: Albumin 25% 25 GM/100 ML BOT IVPB SCH (02:21)
[2021-02-24] MEDS: Piperacillin/Tazobactam 3.375 GM in Sodium Chloride 0.9% 100 ML IVPB SCH ×2 (04:03→11:03)
[2021-02-24] MEDS: Meropenem 1 GM in Sodium Chloride 0.9% 100 ML IVPB SCH ×3 (04:03→20:29)
[2021-02-24] MEDS: NPH, Human Insulin Isophane 300 UNIT/3 ML VIAL SC SCH ×4 (04:17→22:07)
[2021-02-24 04:46] LABS: Hemoglobin 5.9 g/dL (14.0-18.0); Mean Corpuscular Hemoglobin 29.3 pg (27.0-31.0); Mean Corpuscular Volume 94.6 fL (78.0-98.0); Mean Platelet Volume 9.8 fL (7.4-10.4); Platelet Count 158 thou/uL (130-400); RBC Distribution Width 19.2 % (11.5-14.5); White Blood Cell (WBC) Count 6.8 thou/uL (4.8-10.8)
[2021-02-24 04:50] LABS: Albumin 3.3 g/dL (3.4-4.8); Anion Gap 11 mmol/L (10-20); BUN (Urea Nitrogen) 49 mg/dL (8.4-25.7); BUN/Creatinine Ratio 60.49; Calc. Creatinine Clearance 85 mL/min (70-130); Calcium 8.9 mg/dL (7.8-10.44); Carbon Dioxide 37 mmol/L (23-31); Chloride 94 mmol/L (98-107); Glucose 155 mg/dL (80-115); Magnesium 2.1 mg/dL (1.6-2.6); Phosphorus 3.3 mg/dL (2.3-4.7); Sodium 139 mmol/L (136-145)
[2021-02-24 05:00] LABS: Band 18 % (5-11); Hypochromia SLIGHT = 6-15 cells (100X) (0-5/hpf); MDiff Complete? YES; Neutrophil 82 % (42-75); Platelet Morphology Comment Appears Adequate
[2021-02-24 05:09] LABS: Potassium 2.5 mmol/L (3.5-5.1)
[2021-02-24 05:20] LABS: #Lymphocytes 0.2 thou/uL (1.20-3.40); #Monocytes 0.1 thou/uL (0.11-0.59); #Neutrophils 6.7 thou/uL (1.40-6.50); %Basophils 0.2 % (0.0-1.0); %Eosinophils 0.1 % (0.0-10.0); %Lymphocytes 2.4 % (21.0-51.0); %Monocytes 1.8 % (0.0-10.0); %Neutrophils 95.5 % (42.0-75.0); Hemoglobin 5.7 g/dL (14.0-18.0); Mean Corpuscular HGB CONC 32.2 g/dL (32.0-36.0); Mean Corpuscular Hemoglobin 30.3 pg (27.0-31.0); Mean Corpuscular Volume 94.2 fL (78.0-98.0); Mean Platelet Volume 9.7 fL (7.4-10.4); Platelet Count 149 thou/uL (130-400); RBC Distribution Width 19.1 % (11.5-14.5); Red Blood Cell (RBC) Count 1.89 mill/uL (4.70-6.10)
[2021-02-24] MEDS: Potassium Chloride 40 MEQ in Premix Bag 1 BAG IVPB SCH ×2 (05:32→08:29)
[2021-02-24] MEDS: clonazePAM 0.5 MG TAB PO SCH ×3 (05:33→16:50)
[2021-02-24] MEDS: Amiodarone 450 MG, Admixture Fee 1 EACH in Dextrose 5% in Water 250 ML IVPB SCH (05:33)
[2021-02-24] MEDS: Octreotide Acetate 50 MCG in Sodium Chloride 0.9% 50 ML IVPB SCH ×3 (05:33→22:02)
[2021-02-24] MEDS ORDERED: Potassium Chloride 20 MEQ TAB PO SCH (07:00)
[2021-02-24] MEDS ORDERED: Spironolactone 100 MG TAB PO SCH (07:00)
[2021-02-24] MEDS: FLUoxetine HCl 20 MG/5 ML UDCUP PER TUBE SCH (08:29)
[2021-02-24] MEDS: Tamsulosin HCl 0.4 MG CAP PO SCH (08:29)
[2021-02-24] MEDS: Metoprolol Tartrate 25 MG TAB PO SCH ×2 (08:29→20:29)
[2021-02-24] MEDS: Famotidine/PF 20 mg/2ml Vial SLOW IVP SCH ×2 (08:29→20:30)
[2021-02-24] MEDS: Amiodarone 200 MG TAB PO SCH ×3 (08:29→20:29)
[2021-02-24] MEDS: Potassium Bicarbonate/Cit Ac 20 MEQ TAB PO SCH ×3 (09:38→15:04)
[2021-02-24] MEDS: Multivitamins, Adult 10 ML, TRACE ELEMENT CONCENTRATE 1 ML in D15W-AA 5% with Lytes 2,0... IV SCH (14:14)
[2021-02-24 15:35] LABS: Hemoglobin 8.8 g/dL (14.0-18.0); Mean Corpuscular HGB CONC 33.4 g/dL (32.0-36.0); Mean Corpuscular Volume 90.1 fL (78.0-98.0); Mean Platelet Volume 9.8 fL (7.4-10.4); Platelet Count 157 thou/uL (130-400); RBC Distribution Width 17.9 % (11.5-14.5); Red Blood Cell (RBC) Count 2.94 mill/uL (4.70-6.10); White Blood Cell (WBC) Count 8.3 thou/uL (4.8-10.8)
[2021-02-25] MEDS: clonazePAM 0.5 MG TAB PO SCH ×3 (00:08→18:36)
[2021-02-25] MEDS: Meropenem 1 GM in Sodium Chloride 0.9% 100 ML IVPB SCH ×3 (04:02→20:42)
[2021-02-25] MEDS: NPH, Human Insulin Isophane 300 UNIT/3 ML VIAL SC SCH ×3 (04:13→21:23)
[2021-02-25 04:55] LABS: Anisocytosis SLIGHT = 6-15 cells (100X) (0-5/hpf); Band 19 % (5-11); Hemoglobin 9.8 g/dL (14.0-18.0); MDiff Complete? YES; Macrocytosis SLIGHT = 6-15 cells (100X) (0-5/hpf); Mean Corpuscular HGB CONC 33.4 g/dL (32.0-36.0); Mean Corpuscular Volume 89.8 fL (78.0-98.0); Mean Platelet Volume 9.4 fL (7.4-10.4); Monocytes 1 % (0-10); Neutrophil 80 % (42-75); Platelet Count 174 thou/uL (130-400); Platelet Morphology Comment Appears Adequate; RBC Distribution Width 17.8 % (11.5-14.5); Red Blood Cell (RBC) Count 3.26 mill/uL (4.70-6.10); White Blood Cell (WBC) Count 9.1 thou/uL (4.8-10.8)
[2021-02-25 05:07] LABS: Anion Gap 11 mmol/L (10-20); BUN (Urea Nitrogen) 42 mg/dL (8.4-25.7); BUN/Creatinine Ratio 58.33; Calc. Creatinine Clearance 97 mL/min (70-130); Carbon Dioxide 34 mmol/L (23-31); Chloride 97 mmol/L (98-107); Glucose 189 mg/dL (80-115); Phosphorus 1.9 mg/dL (2.3-4.7); Potassium 3.1 mmol/L (3.5-5.1); Sodium 139 mmol/L (136-145)
[2021-02-25] MEDS: Octreotide Acetate 50 MCG in Sodium Chloride 0.9% 50 ML IVPB SCH ×3 (05:09→22:44)
[2021-02-25] MEDS ORDERED: Potassium Chloride 20 MEQ in Premix Bag 1 BAG IVPB SCH (05:30)
[2021-02-25] MEDS ORDERED: Potassium Phosphate 15 MMOL in Sodium Chloride 0.9% 100 ML IVPB SCH (06:00)
[2021-02-25] MEDS: Metoprolol Tartrate 25 MG TAB PO SCH ×2 (08:04→21:12)
[2021-02-25] MEDS: Famotidine/PF 20 mg/2ml Vial SLOW IVP SCH ×2 (08:06→20:42)
[2021-02-25] MEDS: Amiodarone 200 MG TAB PO SCH ×3 (08:06→21:12)
[2021-02-25] MEDS: Tamsulosin HCl 0.4 MG CAP PO SCH (08:06)
[2021-02-25] MEDS: Hydrocortisone Sod Succ/PF 100 mg/2 ml Vial IVP SCH ×2 (08:06→20:42)
[2021-02-25] MEDS: FLUoxetine HCl 20 MG/5 ML UDCUP PER TUBE SCH (09:50)
[2021-02-25] MEDS: Acetaminophen 650 MG/20.3 ML UDCUP PER TUBE PRN (09:59)
[2021-02-25] MEDS ORDERED: Fluconazole In NaCl,Iso-Osm 200 MG in Premix Bag 1 BAG IVPB SCH (10:30)
[2021-02-25] MEDS: Fluconazole In NaCl,Iso-Osm 200 MG in Admixture Fee 1 EACH IVPB SCH (12:15)
[2021-02-25] MEDS: Multivitamins, Adult 10 ML, TRACE ELEMENT CONCENTRATE 1 ML in D15W-AA 5% with Lytes 2,0... IV SCH (14:17)
[2021-02-25] MEDS ORDERED: Potassium Phosphate 15 MMOL in Sodium Chloride 0.9% 250 ML 250 ML IVPB SCH (15:00)
[2021-02-25 21:03] LABS: Potassium 3.8 mmol/L (3.5-5.1)
[2021-02-25 21:12] LABS: Phosphorus 2.9 mg/dL (2.3-4.7)
[2021-02-25] MEDS ORDERED: Metoprolol Tartrate 5 MG/5 ML VIAL IVP SCH (21:15)
[2021-02-26] MEDS: clonazePAM 0.5 MG TAB PO SCH ×3 (00:57→16:10)
[2021-02-26] MEDS ORDERED: Benzocaine 20% Spray 60 ML CAN ONE (02:30)
[2021-02-26] MEDS: Meropenem 1 GM in Sodium Chloride 0.9% 100 ML IVPB SCH ×3 (04:24→20:19)
[2021-02-26 04:49] LABS: Hemoglobin 10.8 g/dL (14.0-18.0); Mean Corpuscular HGB CONC 33.4 g/dL (32.0-36.0); Mean Corpuscular Hemoglobin 30.2 pg (27.0-31.0); Mean Corpuscular Volume 90.3 fL (78.0-98.0); Mean Platelet Volume 9.7 fL (7.4-10.4); Platelet Count 144 thou/uL (130-400); RBC Distribution Width 17.5 % (11.5-14.5); Red Blood Cell (RBC) Count 3.57 mill/uL (4.70-6.10); White Blood Cell (WBC) Count 6.3 thou/uL (4.8-10.8)
[2021-02-26 05:31] LABS: Band 22 % (5-11); Lymphocytes 9 % (21-51); MDiff Complete? YES; Monocytes 1 % (0-10); Neutrophil 68 % (42-75)
[2021-02-26] MEDS: Octreotide Acetate 50 MCG in Sodium Chloride 0.9% 50 ML IVPB SCH ×3 (05:54→21:05)
[2021-02-26 08:39] LABS: Albumin 2.6 g/dL (3.4-4.8); Anion Gap 10 mmol/L (10-20); BUN (Urea Nitrogen) 37 mg/dL (8.4-25.7); BUN/Creatinine Ratio 55.22; Calc. Creatinine Clearance 105 mL/min (70-130); Calcium 8.4 mg/dL (7.8-10.44); Carbon Dioxide 33 mmol/L (23-31); Chloride 102 mmol/L (98-107); Glucose 147 mg/dL (80-115); Phosphorus 2.2 mg/dL (2.3-4.7); Potassium 3.3 mmol/L (3.5-5.1); Sodium 142 mmol/L (136-145)
[2021-02-26] MEDS: Hydrocortisone Sod Succ/PF 100 mg/2 ml Vial IVP SCH ×2 (09:20→20:40)
[2021-02-26] MEDS: Famotidine/PF 20 mg/2ml Vial SLOW IVP SCH ×2 (09:21→20:19)
[2021-02-26] MEDS ORDERED: Acetaminophen 650 MG Suppository PR SCH (09:30)
[2021-02-26] MEDS: NPH, Human Insulin Isophane 300 UNIT/3 ML VIAL SC SCH ×2 (09:50→20:59)
[2021-02-26] MEDS ORDERED: Midazolam HCl 2 mg/2 ml Vial ONE (10:54)
[2021-02-26] MEDS ORDERED: Propofol 1,000 MG/100 ML VIAL IV ONE (10:54)
[2021-02-26] MEDS ORDERED: Benzocaine 20% Spray 60 ML CAN PO SCH (11:10)
[2021-02-26] MEDS ORDERED: Midazolam HCl 2 mg/2 ml Vial SLOW IVP SCH (11:10)
[2021-02-26] MEDS: Fluconazole In NaCl,Iso-Osm 200 MG in Admixture Fee 1 EACH IVPB SCH (11:39)
[2021-02-26 12:01] LABS: Actual Bicarbonate (HCO3a) 28.9 mEq/L (22-28); Base Excess (BEa) 6.8 mEq/L (-2.0 to +3.0); CO2 Tension 32.2 mmHg (35.0-45.0); Calcium, Ionized (arterial) 1.09 mmol/L (1.12-1.30); Carboxyhemoglobin (COHb) 0.4 gm% (0.0-3.0); Hemoglobin (Hb) 10.8 g/dL (14.0-18.0); O2 Tension (PaO2), arterial 69.1 mmHg (> 80.0); Potassium - ABG Lab 3.22 mmol/L (3.70-5.30); pH, Arterial 7.57 (7.35-7.45)
[2021-02-26 12:02] LABS: Puncture Site RRA
[2021-02-26] MEDS: Amiodarone 200 MG TAB PO SCH ×3 (12:28→20:19)
[2021-02-26] MEDS: Metoprolol Tartrate 25 MG TAB PO SCH ×2 (12:28→20:19)
[2021-02-26] MEDS: Tamsulosin HCl 0.4 MG CAP PO SCH (12:28)
[2021-02-26] MEDS: FLUoxetine HCl 20 MG/5 ML UDCUP PER TUBE SCH (12:28)
[2021-02-26] MEDS: Potassium Chloride 20 MEQ TAB PO SCH ×2 (12:59→15:58)
[2021-02-26] MEDS: Vancomycin 1 GM in Premix Bag 1 BAG IVPB SCH ×2 (13:00→22:35)
[2021-02-26] MEDS: Acetaminophen 650 MG/20.3 ML UDCUP PER TUBE PRN ×2 (14:19→20:51)
[2021-02-26] MEDS: Multivitamins, Adult 10 ML, TRACE ELEMENT CONCENTRATE 1 ML in D15W-AA 5% with Lytes 2,0... IV SCH (14:46)
[2021-02-26] MEDS: Fat Emulsion 250 ML IVPB SCH (14:46)
[2021-02-26] MEDS: Potassium Chloride 20 MEQ in Premix Bag 1 BAG IVPB SCH ×2 (16:00→18:25)
[2021-02-26] MEDS: Insulin Regular 300 UNITS/3 ML VIAL SC PRN ×2 (18:30→21:00)
[2021-02-26] MEDS: Morphine 4 MG/ML VIAL SLOW IVP PRN (19:51)
[2021-02-27] MEDS: clonazePAM 0.5 MG TAB PO SCH ×2 (01:08→07:59)
[2021-02-27] MEDS: Meropenem 1 GM in Sodium Chloride 0.9% 100 ML IVPB SCH ×3 (03:03→19:47)
[2021-02-27 05:10] LABS: Band 26 % (5-11); Hemoglobin 9.7 g/dL (14.0-18.0); Lymphocytes 10 % (21-51); MDiff Complete? YES; Mean Corpuscular HGB CONC 33.7 g/dL (32.0-36.0); Mean Corpuscular Hemoglobin 30.8 pg (27.0-31.0); Mean Corpuscular Volume 91.2 fL (78.0-98.0); Monocytes 1 % (0-10); Neutrophil 63 % (42-75); Platelet Count 102 thou/uL (130-400); Platelet Morphology Comment Appears Decreased; RBC Distribution Width 18.1 % (11.5-14.5); Red Blood Cell (RBC) Count 3.14 mill/uL (4.70-6.10)
[2021-02-27] MEDS: Octreotide Acetate 50 MCG in Sodium Chloride 0.9% 50 ML IVPB SCH ×3 (06:18→21:43)
[2021-02-27] MEDS: Insulin Regular 300 UNITS/3 ML VIAL SC PRN ×3 (06:23→21:17)
[2021-02-27 07:00] LABS: Albumin 2.2 g/dL (3.4-4.8); Anion Gap 9 mmol/L (10-20); BUN (Urea Nitrogen) 45 mg/dL (8.4-25.7); BUN/Creatinine Ratio 63.38; Calc. Creatinine Clearance 99 mL/min (70-130); Calcium 8.1 mg/dL (7.8-10.44); Carbon Dioxide 30 mmol/L (23-31); Chloride 103 mmol/L (98-107); Glucose 260 mg/dL (80-115); Phosphorus 2.5 mg/dL (2.3-4.7); Sodium 138 mmol/L (136-145)
[2021-02-27] MEDS: Amiodarone 200 MG TAB PO SCH ×3 (07:51→21:17)
[2021-02-27] MEDS: Metoprolol Tartrate 25 MG TAB PO SCH ×2 (07:52→21:17)
[2021-02-27] MEDS: Tamsulosin HCl 0.4 MG CAP PO SCH (07:52)
[2021-02-27] MEDS: FLUoxetine HCl 20 MG/5 ML UDCUP PER TUBE SCH (07:52)
[2021-02-27] MEDS: NPH, Human Insulin Isophane 300 UNIT/3 ML VIAL SC SCH ×2 (07:52→21:18)
[2021-02-27] MEDS: Famotidine/PF 20 mg/2ml Vial SLOW IVP SCH ×2 (07:52→21:36)
[2021-02-27] MEDS: Hydrocortisone Sod Succ/PF 100 mg/2 ml Vial IVP SCH ×2 (07:59→19:47)
[2021-02-27 08:26] LABS: Actual Bicarbonate (HCO3a) 27.3 mEq/L (22-28); Base Excess (BEa) 4.7 mEq/L (-2.0 to +3.0); CO2 Tension 33.4 mmHg (35.0-45.0); Calcium, Ionized (arterial) 1.15 mmol/L (1.12-1.30); Hemoglobin (Hb) 10.8 g/dL (14.0-18.0); O2 Tension (PaO2), arterial 78.7 mmHg (> 80.0); Potassium - ABG Lab 4.06 mmol/L (3.70-5.30); pH, Arterial 7.53 (7.35-7.45)
[2021-02-27 08:31] LABS: Puncture Site LRA
[2021-02-27] MEDS: Vancomycin 1 GM in Premix Bag 1 BAG IVPB SCH (11:53)
[2021-02-27] MEDS: Acetaminophen 650 MG/20.3 ML UDCUP PER TUBE PRN (11:53)
[2021-02-27] MEDS: Fluconazole In NaCl,Iso-Osm 200 MG in Admixture Fee 1 EACH IVPB SCH (13:07)
[2021-02-27] MEDS: Multivitamins, Adult 10 ML, TRACE ELEMENT CONCENTRATE 1 ML in D15W-AA 5% with Lytes 2,0... IV SCH (14:07)
[2021-02-27] MEDS: Morphine 4 MG/ML VIAL SLOW IVP PRN (18:44)
[2021-02-27 20:30] LABS: Vancomycin, Trough 23.4 ug/mL
[2021-02-27] MEDS ORDERED: Vancomycin 1 GM in Premix Bag 1 BAG IVPB SCH (23:59)
[2021-02-28] MEDS: Acetaminophen 650 MG/20.3 ML UDCUP PER TUBE PRN ×2 (00:10→12:39)
[2021-02-28] MEDS: Morphine 4 MG/ML VIAL SLOW IVP PRN ×2 (01:53→07:56)
[2021-02-28] MEDS: Meropenem 1 GM in Sodium Chloride 0.9% 100 ML IVPB SCH ×3 (03:17→20:15)
[2021-02-28 04:45] LABS: Anion Gap 10 mmol/L (10-20); BUN (Urea Nitrogen) 45 mg/dL (8.4-25.7); Calc. Creatinine Clearance 99 mL/min (70-130); Carbon Dioxide 27 mmol/L (23-31); Chloride 103 mmol/L (98-107); Potassium 4.1 mmol/L (3.5-5.1); Sodium 136 mmol/L (136-145)
[2021-02-28 04:46] LABS: Calcium 7.6 mg/dL (7.8-10.44); Glucose 229 mg/dL (80-115)
[2021-02-28] MEDS: Insulin Regular 300 UNITS/3 ML VIAL SC PRN (04:49)
[2021-02-28] MEDS: Octreotide Acetate 50 MCG in Sodium Chloride 0.9% 50 ML IVPB SCH ×3 (06:04→21:34)
[2021-02-28 06:12] LABS: Anisocytosis SLIGHT = 6-15 cells (100X) (0-5/hpf); Band 42 % (5-11); Hemoglobin 9.1 g/dL (14.0-18.0); Lymphocytes 8 % (21-51); MDiff Complete? YES; Mean Corpuscular HGB CONC 31.6 g/dL (32.0-36.0); Mean Corpuscular Hemoglobin 29.1 pg (27.0-31.0); Mean Corpuscular Volume 92.1 fL (78.0-98.0); Mean Platelet Volume 10.9 fL (7.4-10.4); Monocytes 1 % (0-10); Myelocyte 1 % (0-0); Neutrophil 48 % (42-75); Platelet Count 83 thou/uL (130-400); Platelet Morphology Comment Appears Decreased; RBC Distribution Width 18.3 % (11.5-14.5); Red Blood Cell (RBC) Count 3.12 mill/uL (4.70-6.10); White Blood Cell (WBC) Count 3.9 thou/uL (4.8-10.8)
[2021-02-28] MEDS: Amiodarone 200 MG TAB PO SCH ×3 (08:24→21:34)
[2021-02-28] MEDS: Tamsulosin HCl 0.4 MG CAP PO SCH (08:24)
[2021-02-28] MEDS: Famotidine/PF 20 mg/2ml Vial SLOW IVP SCH ×2 (08:24→21:34)
[2021-02-28] MEDS: NPH, Human Insulin Isophane 300 UNIT/3 ML VIAL SC SCH ×2 (08:24→21:33)
[2021-02-28] MEDS: Metoprolol Tartrate 25 MG TAB PO SCH ×2 (08:24→21:34)
[2021-02-28] MEDS: Hydrocortisone Sod Succ/PF 100 mg/2 ml Vial IVP SCH ×2 (08:29→21:29)
[2021-02-28] MEDS: FLUoxetine HCl 20 MG/5 ML UDCUP PER TUBE SCH (08:29)
[2021-02-28 11:31] LABS: Vancomycin, Trough 21.1 ug/mL
[2021-02-28] MEDS ORDERED: Fluconazole In NaCl,Iso-Osm 200 MG in Admixture Fee 1 EACH IVPB SCH (12:00)
[2021-02-28] MEDS: Vancomycin HCl 750 MG in Sodium Chloride 0.9% 250 ML 250 ML IVPB SCH ×2 (12:22→23:01)
[2021-02-28] MEDS: Fluconazole In NaCl,Iso-Osm 200 MG in Admixture Fee 1 EACH IVPB SCH (12:58)
[2021-02-28] MEDS ORDERED: FLUCONAZOLE IVPB SCH (13:00)
[2021-02-28] MEDS ORDERED: NACL ISO OSM IVPB SCH (13:00)
[2021-02-28] MEDS ORDERED: ADMIXTURE FEE IVPB SCH (13:00)
[2021-02-28] MEDS: Micafungin 100 MG in Sodium Chloride 0.9% 100 ML IVPB SCH (13:46)
[2021-02-28] MEDS: Multivitamins, Adult 10 ML, TRACE ELEMENT CONCENTRATE 1 ML in D15W-AA 5% with Lytes 2,0... IV SCH (13:52)
[2021-02-28 14:00] LABS: Bacteria/HPF 2+ HPF (None Seen); Bilirubin Negative (Negative); Blood, Urine 3+ (Negative); Glucose, Urine (Dipstick) Normal (Negative); Ketone, Urine Negative (Negative); Leukocyte 500 Leu/uL (Negative); Nitrite Negative (Negative); Protein, Urine (Dipstick) 70 mg/dL (Neg-Trace); Specific Gravity, Urine 1.021 (1.002-1.036); Squamous Epithelial None Seen HPF (0-3); Urobilinogen Normal mg/dL (Less than 2); pH, Urine 5.5 (5.0-9.0)
[2021-02-28 14:08] LABS: Clarity Turbid (Clear)
[2021-02-28 14:09] LABS: RBC/HPF 21-50 HPF (0-3)
[2021-02-28 14:11] LABS: Yeast-Budding 3+ HPF (None Seen); Yeast-Hyphae 4+ HPF (None Seen)
[2021-02-28 14:13] LABS: Urine Culture Reflex Yes Yes
[2021-03-01] MEDS: Acetaminophen 650 MG/20.3 ML UDCUP PER TUBE PRN ×2 (00:08→12:44)
[2021-03-01] MEDS: Meropenem 1 GM in Sodium Chloride 0.9% 100 ML IVPB SCH ×3 (03:00→21:01)
[2021-03-01 04:20] LABS: Hemoglobin 8.7 g/dL (14.0-18.0); Mean Corpuscular HGB CONC 31.3 g/dL (32.0-36.0); Mean Corpuscular Hemoglobin 28.8 pg (27.0-31.0); Mean Corpuscular Volume 91.8 fL (78.0-98.0); Mean Platelet Volume 10.6 fL (7.4-10.4); Platelet Count 83 thou/uL (130-400); RBC Distribution Width 18.3 % (11.5-14.5); Red Blood Cell (RBC) Count 3.02 mill/uL (4.70-6.10); White Blood Cell (WBC) Count 5.6 thou/uL (4.8-10.8)
[2021-03-01 04:24] LABS: Anion Gap 9 mmol/L (10-20); BUN (Urea Nitrogen) 44 mg/dL (8.4-25.7); Calc. Creatinine Clearance 107 mL/min (70-130); Calcium 7.6 mg/dL (7.8-10.44); Carbon Dioxide 28 mmol/L (23-31); Chloride 104 mmol/L (98-107); Glucose 228 mg/dL (80-115); Sodium 137 mmol/L (136-145)
[2021-03-01 05:21] LABS: Band 32 % (5-11); Lymphocytes 9 % (21-51); MDiff Complete? YES; Metamyelocyte 1 % (0-0); Myelocyte 2 % (0-0); Neutrophil 56 % (42-75); Platelet Morphology Comment Appears Decreased
[2021-03-01] MEDS: Insulin Regular 300 UNITS/3 ML VIAL SC PRN ×4 (05:41→21:06)
[2021-03-01] MEDS: Octreotide Acetate 50 MCG in Sodium Chloride 0.9% 50 ML IVPB SCH ×2 (05:43→15:31)
[2021-03-01] MEDS: FLUoxetine HCl 20 MG/5 ML UDCUP PER TUBE SCH (09:53)
[2021-03-01] MEDS: Metoprolol Tartrate 25 MG TAB PO SCH ×2 (09:53→21:08)
[2021-03-01] MEDS: Famotidine/PF 20 mg/2ml Vial SLOW IVP SCH ×2 (09:53→21:07)
[2021-03-01] MEDS: Hydrocortisone Sod Succ/PF 100 mg/2 ml Vial IVP SCH ×2 (09:53→21:08)
[2021-03-01] MEDS: Tamsulosin HCl 0.4 MG CAP PO SCH (09:53)
[2021-03-01] MEDS: Amiodarone 200 MG TAB PO SCH ×3 (09:53→21:08)
[2021-03-01] MEDS: NPH, Human Insulin Isophane 300 UNIT/3 ML VIAL SC SCH ×2 (10:07→21:05)
[2021-03-01] MEDS: Morphine 4 MG/ML VIAL SLOW IVP PRN ×2 (10:36→12:45)
[2021-03-01] MEDS: Vancomycin HCl 750 MG in Sodium Chloride 0.9% 250 ML 250 ML IVPB SCH (12:39)
[2021-03-01] MEDS: Micafungin 100 MG in Sodium Chloride 0.9% 100 ML IVPB SCH (13:25)
[2021-03-01] MEDS: Multivitamins, Adult 10 ML, TRACE ELEMENT CONCENTRATE 1 ML in D15W-AA 5% with Lytes 2,0... IV SCH (14:40)
[2021-03-01] MEDS: Fat Emulsion 250 ML IVPB SCH (14:40)
[2021-03-01] MEDS ORDERED: ceFAZolin Sodium/D5W 2 GM in Premix Bag 1 BAG IVPB SCH (18:30)
[2021-03-01] MEDS: Lorazepam 2 MG/ML VIAL SLOW IVP PRN (21:07)
[2021-03-01] MEDS: Octreotide Acetate 50 MCG/ML AMP SLOW IVP SCH (21:07)
[2021-03-02] MEDS: Vancomycin HCl 750 MG in Sodium Chloride 0.9% 250 ML 250 ML IVPB SCH ×2 (00:42→12:19)
[2021-03-02] MEDS: Meropenem 1 GM in Sodium Chloride 0.9% 100 ML IVPB SCH ×3 (04:04→20:54)
[2021-03-02] MEDS: Insulin Regular 300 UNITS/3 ML VIAL SC PRN ×4 (04:20→21:05)
[2021-03-02 04:51] LABS: Hemoglobin 9.6 g/dL (14.0-18.0); Mean Corpuscular HGB CONC 32.6 g/dL (32.0-36.0); Mean Corpuscular Hemoglobin 29.5 pg (27.0-31.0); Mean Corpuscular Volume 90.4 fL (78.0-98.0); Mean Platelet Volume 10.9 fL (7.4-10.4); Platelet Count 87 thou/uL (130-400); RBC Distribution Width 17.9 % (11.5-14.5); Red Blood Cell (RBC) Count 3.25 mill/uL (4.70-6.10); White Blood Cell (WBC) Count 8.8 thou/uL (4.8-10.8)
[2021-03-02 04:59] LABS: Phosphorus 2.1 mg/dL (2.3-4.7)
[2021-03-02 05:16] LABS: SARS-CoV-2 NAA Rapid Test Not Detected (NotDetected)
[2021-03-02 05:23] LABS: Band 23 % (5-11); Lymphocytes 10 % (21-51); MDiff Complete? YES; Monocytes 1 % (0-10); Myelocyte 1 % (0-0); Neutrophil 65 % (42-75); Platelet Morphology Comment Appears Decreased
[2021-03-02] MEDS: Octreotide Acetate 50 MCG/ML AMP SLOW IVP SCH ×3 (06:00→21:00)
[2021-03-02 08:09] LABS: Ref Lab Test Ordered YEAST SENS; Reference Lab Name LABCORP
[2021-03-02] MEDS: Amiodarone 200 MG TAB PO SCH ×3 (08:21→20:55)
[2021-03-02] MEDS: Tamsulosin HCl 0.4 MG CAP PO SCH (08:21)
[2021-03-02] MEDS: Metoprolol Tartrate 25 MG TAB PO SCH ×2 (08:21→20:55)
[2021-03-02] MEDS: FLUoxetine HCl 20 MG/5 ML UDCUP PER TUBE SCH (08:21)
[2021-03-02] MEDS: Hydrocortisone Sod Succ/PF 100 mg/2 ml Vial IVP SCH ×2 (08:21→20:54)
[2021-03-02] MEDS: Famotidine/PF 20 mg/2ml Vial SLOW IVP SCH ×2 (08:21→20:55)
[2021-03-02] MEDS: NPH, Human Insulin Isophane 300 UNIT/3 ML VIAL SC SCH ×2 (08:43→20:55)
[2021-03-02] MEDS: Lorazepam 2 MG/ML VIAL SLOW IVP PRN (09:54)
[2021-03-02] MEDS ORDERED: Magnesium 2 GM/50 ML 2 GM in Premix Bag 1 BAG IVPB SCH (10:00)
[2021-03-02] MEDS: Micafungin 100 MG in Sodium Chloride 0.9% 100 ML IVPB SCH (13:25)
[2021-03-02] MEDS: Multivitamins, Adult 10 ML, TRACE ELEMENT CONCENTRATE 1 ML in D15W-AA 5% with Lytes 2,0... IV SCH (13:41)
[2021-03-02] MEDS: Morphine 4 MG/ML VIAL SLOW IVP PRN (14:05)
[2021-03-03] MEDS: Vancomycin HCl 750 MG in Sodium Chloride 0.9% 250 ML 250 ML IVPB SCH ×3 (00:19→23:37)
[2021-03-03] MEDS: Meropenem 1 GM in Sodium Chloride 0.9% 100 ML IVPB SCH ×3 (03:23→20:51)
[2021-03-03] MEDS: Insulin Regular 300 UNITS/3 ML VIAL SC PRN ×4 (03:24→21:04)
[2021-03-03 04:03] LABS: Hemoglobin 9.2 g/dL (14.0-18.0); Mean Corpuscular HGB CONC 31.8 g/dL (32.0-36.0); Mean Corpuscular Hemoglobin 28.7 pg (27.0-31.0); Mean Corpuscular Volume 90.2 fL (78.0-98.0); Platelet Count 78 thou/uL (130-400); RBC Distribution Width 18.1 % (11.5-14.5); Red Blood Cell (RBC) Count 3.21 mill/uL (4.70-6.10); White Blood Cell (WBC) Count 10.5 thou/uL (4.8-10.8)
[2021-03-03 04:06] LABS: Prothrombin Time 13.7 sec (12.0-14.7)
[2021-03-03 04:23] LABS: ALT (SGPT) 67 U/L (8-55); AST (SGOT) 39 U/L (5-34); Albumin 1.8 g/dL (3.4-4.8); Alkaline Phosphatase 162 U/L (40-110); Anion Gap 8 mmol/L (10-20); BUN (Urea Nitrogen) 40 mg/dL (8.4-25.7); Bilirubin, Total 1.1 mg/dL (0.2-1.2); Calc. Creatinine Clearance 113 mL/min (70-130); Calcium 7.4 mg/dL (7.8-10.44); Carbon Dioxide 27 mmol/L (23-31); Chloride 107 mmol/L (98-107); Globulin 2.6 g/dL (2.4-3.5); Glucose 213 mg/dL (80-115); Magnesium 2.2 mg/dL (1.6-2.6); Phosphorus 2.3 mg/dL (2.3-4.7); Potassium 4.1 mmol/L (3.5-5.1); Protein, Total 4.4 g/dL (5.8-8.1); Sodium 138 mmol/L (136-145)
[2021-03-03 04:58] LABS: Band 19 % (5-11); Lymphocytes 3 % (21-51); MDiff Complete? YES; Metamyelocyte 2 % (0-0); Monocytes 6 % (0-10); Myelocyte 3 % (0-0); Neutrophil 67 % (42-75); Platelet Morphology Comment Appears Decreased
[2021-03-03] MEDS: Octreotide Acetate 50 MCG/ML AMP SLOW IVP SCH ×3 (06:06→21:04)
[2021-03-03] MEDS ORDERED: Sterile Water 0 ML ONE (06:51)
[2021-03-03 07:48] LABS: Actual Bicarbonate (HCO3a) 22.7 mEq/L (22-28); Base Excess (BEa) 0.5 mEq/L (-2.0 to +3.0); Calcium, Ionized (arterial) 1.07 mmol/L (1.12-1.30); Carboxyhemoglobin (COHb) 0.2 gm% (0.0-3.0); Hemoglobin (Hb) 9.4 g/dL (14.0-18.0); O2 Tension (PaO2), arterial 98.6 mmHg (> 80.0); Potassium - ABG Lab 4.03 mmol/L (3.70-5.30); pH, Arterial 7.53 (7.35-7.45)
[2021-03-03 07:57] LABS: Puncture Site RRA
[2021-03-03] MEDS: Hydrocortisone Sod Succ/PF 100 mg/2 ml Vial IVP SCH ×2 (07:58→20:51)
[2021-03-03] MEDS: FLUoxetine HCl 20 MG/5 ML UDCUP PER TUBE SCH (07:58)
[2021-03-03] MEDS: Famotidine/PF 20 mg/2ml Vial SLOW IVP SCH ×2 (07:58→20:52)
[2021-03-03] MEDS: Tamsulosin HCl 0.4 MG CAP PO SCH (07:59)
[2021-03-03] MEDS: Metoprolol Tartrate 25 MG TAB PO SCH ×2 (07:59→20:51)
[2021-03-03] MEDS: Amiodarone 200 MG TAB PO SCH ×3 (07:59→20:52)
[2021-03-03] MEDS ORDERED: Bupivacaine PF 0.5% 30 ML VIAL ONE (08:24)
[2021-03-03] MEDS ORDERED: EPINEPHrine 1 MG/ML AMP ONE (08:24)
[2021-03-03] MEDS ORDERED: Midazolam HCl 2 mg/2 ml Vial ONE (08:31)
[2021-03-03] MEDS ORDERED: Fentanyl 100 MCG/2 ML VIAL ONE (08:31)
[2021-03-03] MEDS: NPH, Human Insulin Isophane 300 UNIT/3 ML VIAL SC SCH ×2 (08:34→21:04)
[2021-03-03] MEDS: Lorazepam 2 MG/ML VIAL SLOW IVP PRN (08:53)
[2021-03-03] MEDS ORDERED: Furosemide 40 MG/4 ML VIAL SLOW IVP SCH (11:00)
[2021-03-03 11:47] LABS: Vancomycin, Trough 18.5 ug/mL
[2021-03-03] MEDS: Micafungin 100 MG in Sodium Chloride 0.9% 100 ML IVPB SCH (12:12)
[2021-03-03] MEDS: Fat Emulsion 250 ML IVPB SCH (14:17)
[2021-03-03] MEDS: Multivitamins, Adult 10 ML, TRACE ELEMENT CONCENTRATE 1 ML in D15W-AA 5% with Lytes 2,0... IV SCH (14:19)
[2021-03-03] MEDS ORDERED: Cholecalciferol 1,000 UNITS (25 MCG) TAB PO SCH (16:15)
[2021-03-03] MEDS: Fluconazole In NaCl,Iso-Osm 400 MG in Premix Bag 1 BAG IVPB SCH (16:30)
[2021-03-04] MEDS: Meropenem 1 GM in Sodium Chloride 0.9% 100 ML IVPB SCH ×2 (03:18→12:42)
[2021-03-04] MEDS: Insulin Regular 300 UNITS/3 ML VIAL SC PRN ×4 (03:25→22:37)
[2021-03-04 04:17] LABS: Hemoglobin 8.7 g/dL (14.0-18.0); Mean Corpuscular HGB CONC 32.1 g/dL (32.0-36.0); Mean Corpuscular Hemoglobin 28.8 pg (27.0-31.0); Mean Corpuscular Volume 89.8 fL (78.0-98.0); Mean Platelet Volume 11.3 fL (7.4-10.4); Platelet Count 83 thou/uL (130-400); RBC Distribution Width 18.3 % (11.5-14.5); Red Blood Cell (RBC) Count 3.02 mill/uL (4.70-6.10); White Blood Cell (WBC) Count 12.2 thou/uL (4.8-10.8)
[2021-03-04 04:28] LABS: ALT (SGPT) 58 U/L (8-55); AST (SGOT) 41 U/L (5-34); Albumin 1.7 g/dL (3.4-4.8); Alkaline Phosphatase 169 U/L (40-110); Anion Gap 8 mmol/L (10-20); BUN (Urea Nitrogen) 38 mg/dL (8.4-25.7); Calc. Creatinine Clearance 108 mL/min (70-130); Carbon Dioxide 29 mmol/L (23-31); Chloride 106 mmol/L (98-107); Globulin 2.5 g/dL (2.4-3.5); Glucose 238 mg/dL (80-115); Magnesium 1.9 mg/dL (1.6-2.6); Phosphorus 2.7 mg/dL (2.3-4.7); Potassium 3.3 mmol/L (3.5-5.1); Protein, Total 4.2 g/dL (5.8-8.1); Sodium 140 mmol/L (136-145)
[2021-03-04 04:34] LABS: Band 18 % (5-11); MDiff Complete? YES; Monocytes 2 % (0-10); Myelocyte 4 % (0-0); Neutrophil 76 % (42-75); Nucleated RBC 1 % (0); Platelet Morphology Comment Appears Decreased; Polychromasia SLIGHT = 2-3 cells (100X) (0-2/hpf)
[2021-03-04] MEDS: Octreotide Acetate 50 MCG/ML AMP SLOW IVP SCH (05:38)
[2021-03-04] MEDS ORDERED: Potassium Chloride 20 MEQ TAB PO SCH (07:45)
[2021-03-04] MEDS: NPH, Human Insulin Isophane 300 UNIT/3 ML VIAL SC SCH ×2 (07:55→20:08)
[2021-03-04] MEDS: Hydrocortisone Sod Succ/PF 100 mg/2 ml Vial IVP SCH ×2 (07:56→20:06)
[2021-03-04] MEDS: Tamsulosin HCl 0.4 MG CAP PO SCH (08:01)
[2021-03-04] MEDS: FLUoxetine HCl 20 MG/5 ML UDCUP PER TUBE SCH (08:01)
[2021-03-04] MEDS: Amiodarone 200 MG TAB PO SCH ×3 (08:01→20:08)
[2021-03-04] MEDS: Metoprolol Tartrate 25 MG TAB PO SCH ×2 (08:01→20:07)
[2021-03-04] MEDS: Cholecalciferol 1,000 UNITS (25 MCG) TAB PO SCH (08:01)
[2021-03-04] MEDS: Aspirin 81 mg Enteric Coated Tablet PO SCH (08:01)
[2021-03-04] MEDS: Famotidine/PF 20 mg/2ml Vial SLOW IVP SCH (08:02)
[2021-03-04] MEDS: Vancomycin HCl 750 MG in Sodium Chloride 0.9% 250 ML 250 ML IVPB SCH ×2 (11:07→23:18)
[2021-03-04] MEDS: Acetaminophen 650 MG/20.3 ML UDCUP PER TUBE PRN ×2 (12:09→20:24)
[2021-03-04] MEDS ORDERED: Pantoprazole 40 MG VIAL IVP SCH (14:30)
[2021-03-04] MEDS: Fluconazole In NaCl,Iso-Osm 400 MG in Premix Bag 1 BAG IVPB SCH (15:18)
[2021-03-04] MEDS: Multivitamins, Adult 10 ML, TRACE ELEMENT CONCENTRATE 1 ML in D15W-AA 5% with Lytes 2,0... IV SCH (15:34)
[2021-03-04] MEDS: Pantoprazole 40 MG VIAL IVP SCH (20:08)
[2021-03-05] MEDS: Insulin Regular 300 UNITS/3 ML VIAL SC PRN (03:34)
[2021-03-05 04:15] LABS: Band 7 % (5-11); Hypochromia SLIGHT = 6-15 cells (100X) (0-5/hpf); Lymphocytes 10 % (21-51); MDiff Complete? YES; Mean Corpuscular HGB CONC 32.8 g/dL (32.0-36.0); Mean Corpuscular Hemoglobin 29.5 pg (27.0-31.0); Mean Corpuscular Volume 89.9 fL (78.0-98.0); Mean Platelet Volume 11.1 fL (7.4-10.4); Monocytes 8 % (0-10); Neutrophil 75 % (42-75); Platelet Count 105 thou/uL (130-400); Platelet Morphology Comment Appears Decreased; RBC Distribution Width 18.2 % (11.5-14.5); Red Blood Cell (RBC) Count 3.39 mill/uL (4.70-6.10); White Blood Cell (WBC) Count 20.9 thou/uL (4.8-10.8)
[2021-03-05 05:29] LABS: ALT (SGPT) 87 U/L (8-55); AST (SGOT) 72 U/L (5-34); Alkaline Phosphatase 239 U/L (40-110); Anion Gap 8 mmol/L (10-20); BUN (Urea Nitrogen) 40 mg/dL (8.4-25.7); Bilirubin, Total 1.9 mg/dL (0.2-1.2); Calc. Creatinine Clearance 0 mL/min (70-130); Calcium 7.5 mg/dL (7.8-10.44); Carbon Dioxide 28 mmol/L (23-31); Chloride 108 mmol/L (98-107); Globulin 2.8 g/dL (2.4-3.5); Glucose 163 mg/dL (80-115); Magnesium 2.1 mg/dL (1.6-2.6); Potassium 3.8 mmol/L (3.5-5.1); Protein, Total 4.8 g/dL (5.8-8.1); Sodium 140 mmol/L (136-145)
[2021-03-05] MEDS ORDERED: PHOS-NAK 1 PKT PACK ONE ×2 (09:02→13:35)
[2021-03-05] MEDS ORDERED: Amiodarone 200 MG TAB ONE ×2 (09:02→14:44)
[2021-03-05] MEDS ORDERED: Aspirin 81 mg Enteric Coated Tablet ONE (09:03)
[2021-03-05] MEDS: PHOS-NAK 1 PKT PACK PO SCH ×2 (09:47→13:37)
[2021-03-05] MEDS: Amiodarone 200 MG TAB PO SCH ×3 (09:47→20:20)
[2021-03-05] MEDS: Aspirin 81 mg Enteric Coated Tablet PO SCH (09:47)
[2021-03-05] MEDS ORDERED: Iopamidol 370 76% 50 ML VIAL FS ONE (09:49)
[2021-03-05] MEDS ORDERED: Iopamidol-370 76% 500 ML 1 ML ONE (09:49)
[2021-03-05] MEDS: Tamsulosin HCl 0.4 MG CAP PO SCH (09:54)
[2021-03-05] MEDS: Hydrocortisone Sod Succ/PF 100 mg/2 ml Vial IVP SCH ×2 (09:54→20:19)
[2021-03-05] MEDS: Metoprolol Tartrate 25 MG TAB PO SCH ×2 (09:54→20:20)
[2021-03-05] MEDS: Morphine 4 MG/ML VIAL SLOW IVP PRN (09:54)
[2021-03-05] MEDS: NPH, Human Insulin Isophane 300 UNIT/3 ML VIAL SC SCH ×2 (10:01→20:20)
[2021-03-05] MEDS: FLUoxetine HCl 20 MG/5 ML UDCUP PER TUBE SCH (10:01)
[2021-03-05] MEDS ORDERED: Acetaminophen 650 MG/20.3 ML UDCUP ONE (10:12)
[2021-03-05] MEDS ORDERED: Cholecalciferol 1,000 UNITS (25 MCG) TAB ONE (10:12)
[2021-03-05] MEDS: Acetaminophen 650 MG/20.3 ML UDCUP PER TUBE PRN (10:13)
[2021-03-05] MEDS: Cholecalciferol 1,000 UNITS (25 MCG) TAB PO SCH (10:13)
[2021-03-05] MEDS: Pantoprazole 40 MG VIAL IVP SCH ×2 (10:26→20:19)
[2021-03-05] MEDS: Vancomycin HCl 750 MG in Sodium Chloride 0.9% 250 ML 250 ML IVPB SCH (13:37)
[2021-03-05] MEDS ORDERED: Meropenem 1 GM in Sodium Chloride 0.9% 100 ML IVPB SCH ×2 (14:22→14:45)
[2021-03-05] MEDS: Fat Emulsion 250 ML IVPB SCH (14:39)
[2021-03-05] MEDS: Multivitamins, Adult 10 ML, TRACE ELEMENT CONCENTRATE 1 ML in D15W-AA 5% with Lytes 2,0... IV SCH (14:39)
[2021-03-05] MEDS: Fluconazole In NaCl,Iso-Osm 400 MG in Premix Bag 1 BAG IVPB SCH (15:34)
[2021-03-05] MEDS: Meropenem 1 GM in Sodium Chloride 0.9% 100 ML IVPB SCH (21:03)
[2021-03-06] MEDS: Vancomycin HCl 750 MG in Sodium Chloride 0.9% 250 ML 250 ML IVPB SCH (00:11)
[2021-03-06] MEDS: Insulin Regular 300 UNITS/3 ML VIAL SC PRN (05:08)
[2021-03-06] MEDS: Meropenem 1 GM in Sodium Chloride 0.9% 100 ML IVPB SCH ×3 (05:08→22:00)
[2021-03-06 05:46] LABS: ALT (SGPT) 70 U/L (8-55); AST (SGOT) 48 U/L (5-34); Albumin 1.8 g/dL (3.4-4.8); Alkaline Phosphatase 218 U/L (40-110); Anion Gap 9 mmol/L (10-20); BUN (Urea Nitrogen) 42 mg/dL (8.4-25.7); Bilirubin, Total 1.1 mg/dL (0.2-1.2); Calc. Creatinine Clearance 100 mL/min (70-130); Calcium 7.3 mg/dL (7.8-10.44); Carbon Dioxide 27 mmol/L (23-31); Chloride 108 mmol/L (98-107); Globulin 2.7 g/dL (2.4-3.5); Glucose 185 mg/dL (80-115); Magnesium 2.2 mg/dL (1.6-2.6); Phosphorus 2.8 mg/dL (2.3-4.7); Potassium 4.3 mmol/L (3.5-5.1); Protein, Total 4.5 g/dL (5.8-8.1); Sodium 140 mmol/L (136-145)
[2021-03-06 06:43] LABS: Anisocytosis SLIGHT = 6-15 cells (100X) (0-5/hpf); Band 5 % (5-11); Lymphocytes 2 % (21-51); MDiff Complete? YES; Mean Corpuscular HGB CONC 32.7 g/dL (32.0-36.0); Mean Corpuscular Hemoglobin 29.4 pg (27.0-31.0); Mean Corpuscular Volume 89.9 fL (78.0-98.0); Mean Platelet Volume 10.5 fL (7.4-10.4); Monocytes 2 % (0-10); Neutrophil 91 % (42-75); Platelet Count 124 thou/uL (130-400); Platelet Morphology Comment Appears Decreased; Polychromasia SLIGHT = 2-3 cells (100X) (0-2/hpf); RBC Distribution Width 18.9 % (11.5-14.5); Red Blood Cell (RBC) Count 3.06 mill/uL (4.70-6.10); Stomatocytes SLIGHT = 2-5 cells (100X) (0-1/hpf); White Blood Cell (WBC) Count 18.6 thou/uL (4.8-10.8)
[2021-03-06] MEDS: Hydrocortisone Sod Succ/PF 100 mg/2 ml Vial IVP SCH ×2 (08:00→20:17)
[2021-03-06] MEDS: FLUoxetine HCl 20 MG/5 ML UDCUP PER TUBE SCH (08:00)
[2021-03-06] MEDS: Acetaminophen 650 MG/20.3 ML UDCUP PER TUBE PRN ×2 (08:00→18:03)
[2021-03-06] MEDS: Amiodarone 200 MG TAB PO SCH ×3 (08:01→20:17)
[2021-03-06] MEDS: Tamsulosin HCl 0.4 MG CAP PO SCH (08:01)
[2021-03-06] MEDS: Metoprolol Tartrate 25 MG TAB PO SCH ×2 (08:01→20:17)
[2021-03-06] MEDS: Pantoprazole 40 MG VIAL IVP SCH ×2 (08:01→20:35)
[2021-03-06] MEDS: Cholecalciferol 1,000 UNITS (25 MCG) TAB PO SCH (08:01)
[2021-03-06] MEDS: Aspirin 81 mg Enteric Coated Tablet PO SCH (08:01)
[2021-03-06] MEDS: NPH, Human Insulin Isophane 300 UNIT/3 ML VIAL SC SCH ×2 (08:02→20:20)
[2021-03-06 11:48] LABS: Vancomycin, Trough 24.8 ug/mL
[2021-03-06] MEDS: Multivitamins, Adult 10 ML, TRACE ELEMENT CONCENTRATE 1 ML in D15W-AA 5% with Lytes 2,0... IV SCH (13:56)
[2021-03-06] MEDS: Fluconazole In NaCl,Iso-Osm 400 MG in Premix Bag 1 BAG IVPB SCH (15:28)
[2021-03-06] MEDS ORDERED: Acetaminophen 650 MG/20.3 ML UDCUP ONE (18:02)
[2021-03-06] MEDS: VANCOMYCIN 1.25 GM/250 ML BAG 1.25 GM in Premix Bag 1 BAG IVPB SCH (19:41)
[2021-03-07] MEDS: Acetaminophen 650 MG/20.3 ML UDCUP PER TUBE PRN (04:49)
[2021-03-07] MEDS: Meropenem 1 GM in Sodium Chloride 0.9% 100 ML IVPB SCH ×3 (05:03→21:20)
[2021-03-07 05:07] LABS: Band 10 % (5-11); Hemoglobin 8.5 g/dL (14.0-18.0); Hypochromia SLIGHT = 6-15 cells (100X) (0-5/hpf); Lymphocytes 7 % (21-51); MDiff Complete? YES; Mean Corpuscular HGB CONC 32.7 g/dL (32.0-36.0); Mean Corpuscular Hemoglobin 29.9 pg (27.0-31.0); Mean Corpuscular Volume 91.5 fL (78.0-98.0); Mean Platelet Volume 10.2 fL (7.4-10.4); Neutrophil 83 % (42-75); Platelet Count 137 thou/uL (130-400); Platelet Morphology Comment Appears Adequate; RBC Distribution Width 19.5 % (11.5-14.5); Red Blood Cell (RBC) Count 2.85 mill/uL (4.70-6.10); White Blood Cell (WBC) Count 19.5 thou/uL (4.8-10.8)
[2021-03-07 05:18] LABS: ALT (SGPT) 67 U/L (8-55); AST (SGOT) 58 U/L (5-34); Albumin 1.8 g/dL (3.4-4.8); Alkaline Phosphatase 224 U/L (40-110); Anion Gap 8 mmol/L (10-20); BUN (Urea Nitrogen) 42 mg/dL (8.4-25.7); Bilirubin, Total 1.1 mg/dL (0.2-1.2); Calc. Creatinine Clearance 105 mL/min (70-130); Calcium 7.4 mg/dL (7.8-10.44); Carbon Dioxide 27 mmol/L (23-31); Chloride 109 mmol/L (98-107); Globulin 2.6 g/dL (2.4-3.5); Glucose 133 mg/dL (80-115); Magnesium 2.2 mg/dL (1.6-2.6); Potassium 4.1 mmol/L (3.5-5.1); Protein, Total 4.4 g/dL (5.8-8.1); Sodium 140 mmol/L (136-145)
[2021-03-07 07:31] VITALS: BMI 20.2
[2021-03-07] MEDS: Metoprolol Tartrate 25 MG TAB PO SCH ×2 (09:16→21:20)
[2021-03-07] MEDS: Aspirin 81 mg Enteric Coated Tablet PO SCH (09:16)
[2021-03-07] MEDS: Tamsulosin HCl 0.4 MG CAP PO SCH (09:16)
[2021-03-07] MEDS: Amiodarone 200 MG TAB PO SCH ×3 (09:16→21:20)
[2021-03-07] MEDS: Hydrocortisone Sod Succ/PF 100 mg/2 ml Vial IVP SCH ×2 (09:16→21:20)
[2021-03-07] MEDS: Cholecalciferol 1,000 UNITS (25 MCG) TAB PO SCH (09:23)
[2021-03-07] MEDS: NPH, Human Insulin Isophane 300 UNIT/3 ML VIAL SC SCH ×2 (09:26→21:18)
[2021-03-07] MEDS: FLUoxetine HCl 20 MG/5 ML UDCUP PER TUBE SCH (09:33)
[2021-03-07] MEDS: Pantoprazole 40 MG VIAL IVP SCH ×2 (10:19→21:20)
[2021-03-07] MEDS: Multivitamins, Adult 10 ML, TRACE ELEMENT CONCENTRATE 1 ML in D15W-AA 5% with Lytes 2,0... IV SCH (15:11)
[2021-03-07] MEDS: Fluconazole In NaCl,Iso-Osm 400 MG in Premix Bag 1 BAG IVPB SCH (16:50)
[2021-03-07] MEDS: Insulin Regular 300 UNITS/3 ML VIAL SC PRN (17:59)
[2021-03-07] MEDS: VANCOMYCIN 1.25 GM/250 ML BAG 1.25 GM in Premix Bag 1 BAG IVPB SCH (20:18)
[2021-03-08 05:06] LABS: Band 8 % (5-11); Hemoglobin 8.6 g/dL (14.0-18.0); Hypochromia SLIGHT = 6-15 cells (100X) (0-5/hpf); Lymphocytes 12 % (21-51); MDiff Complete? YES; Mean Corpuscular HGB CONC 32.6 g/dL (32.0-36.0); Mean Platelet Volume 9.8 fL (7.4-10.4); Monocytes 4 % (0-10); Neutrophil 76 % (42-75); Platelet Count 172 thou/uL (130-400); Platelet Morphology Comment Appears Adequate; RBC Distribution Width 19.4 % (11.5-14.5); Red Blood Cell (RBC) Count 2.85 mill/uL (4.70-6.10)
[2021-03-08 05:15] LABS: ALT (SGPT) 67 U/L (8-55); AST (SGOT) 54 U/L (5-34); Albumin 1.8 g/dL (3.4-4.8); Alkaline Phosphatase 310 U/L (40-110); Anion Gap 8 mmol/L (10-20); BUN (Urea Nitrogen) 39 mg/dL (8.4-25.7); Calc. Creatinine Clearance 106 mL/min (70-130); Calcium 7.1 mg/dL (7.8-10.44); Carbon Dioxide 25 mmol/L (23-31); Chloride 113 mmol/L (98-107); Globulin 2.6 g/dL (2.4-3.5); Glucose 122 mg/dL (80-115); Magnesium 2.1 mg/dL (1.6-2.6); Phosphorus 2.6 mg/dL (2.3-4.7); Protein, Total 4.4 g/dL (5.8-8.1); Sodium 142 mmol/L (136-145)
[2021-03-08] MEDS: Meropenem 1 GM in Sodium Chloride 0.9% 100 ML IVPB SCH ×3 (07:05→21:00)
[2021-03-08] MEDS: Pantoprazole 40 MG VIAL IVP SCH ×2 (08:22→21:05)
[2021-03-08] MEDS: FLUoxetine HCl 20 MG/5 ML UDCUP PER TUBE SCH (08:22)
[2021-03-08] MEDS: Cholecalciferol 1,000 UNITS (25 MCG) TAB PO SCH (08:22)
[2021-03-08] MEDS: Hydrocortisone Sod Succ/PF 100 mg/2 ml Vial IVP SCH ×2 (08:22→20:53)
[2021-03-08] MEDS: Amiodarone 200 MG TAB PO SCH ×3 (08:24→20:54)
[2021-03-08] MEDS: Metoprolol Tartrate 25 MG TAB PO SCH ×2 (08:24→20:54)
[2021-03-08] MEDS: Tamsulosin HCl 0.4 MG CAP PO SCH (08:24)
[2021-03-08] MEDS: Aspirin 81 mg Enteric Coated Tablet PO SCH (08:24)
[2021-03-08] MEDS: NPH, Human Insulin Isophane 300 UNIT/3 ML VIAL SC SCH ×2 (08:37→21:00)
[2021-03-08 12:38] VITALS: BP 132/76
[2021-03-08] MEDS: Acetaminophen 650 MG/20.3 ML UDCUP PER TUBE PRN ×2 (13:27→20:59)
[2021-03-08] MEDS: Multivitamins, Adult 10 ML, TRACE ELEMENT CONCENTRATE 1 ML in D15W-AA 5% with Lytes 2,0... IV SCH (15:01)
[2021-03-08] MEDS: Fat Emulsion 250 ML IVPB SCH (15:09)
[2021-03-08] MEDS: Fluconazole In NaCl,Iso-Osm 400 MG in Premix Bag 1 BAG IVPB SCH (17:51)
[2021-03-08 19:22] LABS: Vancomycin, Trough 18.9 ug/mL
[2021-03-08] MEDS: VANCOMYCIN 1.25 GM/250 ML BAG 1.25 GM in Premix Bag 1 BAG IVPB SCH (20:48)
[2021-03-09] MEDS: Meropenem 1 GM in Sodium Chloride 0.9% 100 ML IVPB SCH ×3 (05:01→21:30)
[2021-03-09] MEDS: Insulin Regular 300 UNITS/3 ML VIAL SC PRN (05:03)
[2021-03-09 05:32] LABS: Band 24 % (5-11); Hemoglobin 8.5 g/dL (14.0-18.0); Hypochromia SLIGHT = 6-15 cells (100X) (0-5/hpf); Lymphocytes 7 % (21-51); MDiff Complete? YES; Mean Corpuscular HGB CONC 31.8 g/dL (32.0-36.0); Mean Corpuscular Hemoglobin 29.5 pg (27.0-31.0); Mean Corpuscular Volume 92.9 fL (78.0-98.0); Mean Platelet Volume 9.6 fL (7.4-10.4); Monocytes 1 % (0-10); Neutrophil 68 % (42-75); Platelet Count 213 thou/uL (130-400); Platelet Morphology Comment Appears Adequate; RBC Distribution Width 20.2 % (11.5-14.5); Red Blood Cell (RBC) Count 2.87 mill/uL (4.70-6.10); White Blood Cell (WBC) Count 22.7 thou/uL (4.8-10.8)
[2021-03-09] MEDS: Metoprolol Tartrate 25 MG TAB PO SCH ×2 (08:33→20:28)
[2021-03-09] MEDS: Cholecalciferol 1,000 UNITS (25 MCG) TAB PO SCH (08:33)
[2021-03-09] MEDS: Tamsulosin HCl 0.4 MG CAP PO SCH (08:33)
[2021-03-09] MEDS: FLUoxetine HCl 20 MG/5 ML UDCUP PER TUBE SCH (08:33)
[2021-03-09] MEDS: Aspirin 81 mg Enteric Coated Tablet PO SCH (08:33)
[2021-03-09] MEDS: Amiodarone 200 MG TAB PO SCH ×3 (08:33→20:28)
[2021-03-09] MEDS: NPH, Human Insulin Isophane 300 UNIT/3 ML VIAL SC SCH ×2 (08:45→21:30)
[2021-03-09] MEDS: Hydrocortisone Sod Succ/PF 100 mg/2 ml Vial IVP SCH ×2 (10:23→20:27)
[2021-03-09] MEDS: Pantoprazole 40 MG VIAL IVP SCH ×2 (10:23→20:28)
[2021-03-09] MEDS: Multivitamins, Adult 10 ML, TRACE ELEMENT CONCENTRATE 1 ML in D15W-AA 5% with Lytes 2,0... IV SCH (15:33)
[2021-03-09] MEDS: Fluconazole In NaCl,Iso-Osm 400 MG in Premix Bag 1 BAG IVPB SCH (18:14)
[2021-03-09] MEDS: VANCOMYCIN 1.25 GM/250 ML BAG 1.25 GM in Premix Bag 1 BAG IVPB SCH (20:27)
[2021-03-10] MEDS: Insulin Regular 300 UNITS/3 ML VIAL SC PRN (04:27)
[2021-03-10 05:00] LABS: Hemoglobin 8.4 g/dL (14.0-18.0); Hypochromia SLIGHT = 6-15 cells (100X) (0-5/hpf); Lymphocytes 13 % (21-51); MDiff Complete? YES; Mean Corpuscular HGB CONC 30.5 g/dL (32.0-36.0); Mean Corpuscular Hemoglobin 28.6 pg (27.0-31.0); Mean Corpuscular Volume 93.8 fL (78.0-98.0); Mean Platelet Volume 9.4 fL (7.4-10.4); Monocytes 18 % (0-10); Neutrophil 69 % (42-75); Platelet Count 245 thou/uL (130-400); Platelet Morphology Comment Appears Adequate; RBC Distribution Width 20.8 % (11.5-14.5); Red Blood Cell (RBC) Count 2.92 mill/uL (4.70-6.10); White Blood Cell (WBC) Count 22.2 thou/uL (4.8-10.8)
[2021-03-10] MEDS: Meropenem 1 GM in Sodium Chloride 0.9% 100 ML IVPB SCH ×2 (05:18→15:37)
[2021-03-10] MEDS: Tamsulosin HCl 0.4 MG CAP PO SCH (07:33)
[2021-03-10] MEDS: Cholecalciferol 1,000 UNITS (25 MCG) TAB PO SCH (07:33)
[2021-03-10] MEDS: Hydrocortisone Sod Succ/PF 100 mg/2 ml Vial IVP SCH ×2 (07:33→21:29)
[2021-03-10] MEDS: FLUoxetine HCl 20 MG/5 ML UDCUP PER TUBE SCH (07:33)
[2021-03-10] MEDS: Amiodarone 200 MG TAB PO SCH ×3 (07:33→21:29)
[2021-03-10] MEDS: Aspirin 81 mg Enteric Coated Tablet PO SCH (07:33)
[2021-03-10] MEDS: Metoprolol Tartrate 25 MG TAB PO SCH ×2 (07:33→21:35)
[2021-03-10] MEDS: NPH, Human Insulin Isophane 300 UNIT/3 ML VIAL SC SCH (07:34)
[2021-03-10] MEDS: Pantoprazole 40 MG VIAL IVP SCH ×2 (07:34→21:29)
[2021-03-10 14:00] LABS: SARS-CoV-2 PCR by NAA Not Detected (NotDetected)
[2021-03-10] MEDS: Morphine 4 MG/ML VIAL SLOW IVP PRN (16:36)
[2021-03-10] MEDS: Fluconazole In NaCl,Iso-Osm 400 MG in Premix Bag 1 BAG IVPB SCH ×2 (19:49→21:28)
[2021-03-10] MEDS: Acetaminophen 650 MG/20.3 ML UDCUP PER TUBE PRN (21:47)
[2021-03-11] MEDS: NPH, Human Insulin Isophane 300 UNIT/3 ML VIAL SC SCH ×3 (00:52→21:38)
[2021-03-11] MEDS: Meropenem 1 GM in Sodium Chloride 0.9% 100 ML IVPB SCH ×4 (00:56→21:37)
[2021-03-11 04:33] LABS: Band 10 % (5-11); Hypochromia SLIGHT = 6-15 cells (100X) (0-5/hpf); Lymphocytes 10 % (21-51); MDiff Complete? YES; Mean Corpuscular HGB CONC 31.9 g/dL (32.0-36.0); Mean Corpuscular Volume 94.1 fL (78.0-98.0); Monocytes 11 % (0-10); Neutrophil 69 % (42-75); Platelet Count 238 thou/uL (130-400); Platelet Morphology Comment Appears Adequate; RBC Distribution Width 21.1 % (11.5-14.5); Red Blood Cell (RBC) Count 2.67 mill/uL (4.70-6.10); White Blood Cell (WBC) Count 20.9 thou/uL (4.8-10.8)
[2021-03-11 04:44] LABS: Anion Gap 10 mmol/L (10-20); BUN (Urea Nitrogen) 41 mg/dL (8.4-25.7); Calc. Creatinine Clearance 0 mL/min (70-130); Calcium 7.1 mg/dL (7.8-10.44); Carbon Dioxide 21 mmol/L (23-31); Chloride 117 mmol/L (98-107); Glucose 121 mg/dL (80-115); Potassium 4.1 mmol/L (3.5-5.1); Sodium 144 mmol/L (136-145)
[2021-03-11] MEDS: Amiodarone 200 MG TAB PO SCH ×3 (08:09→21:37)
[2021-03-11] MEDS: Cholecalciferol 1,000 UNITS (25 MCG) TAB PO SCH (08:10)
[2021-03-11] MEDS: Aspirin 81 mg Enteric Coated Tablet PO SCH (08:10)
[2021-03-11] MEDS: Pantoprazole 40 MG VIAL IVP SCH ×2 (08:11→21:37)
[2021-03-11] MEDS: FLUoxetine HCl 20 MG/5 ML UDCUP PER TUBE SCH (08:11)
[2021-03-11] MEDS: Tamsulosin HCl 0.4 MG CAP PO SCH (08:11)
[2021-03-11] MEDS: Metoprolol Tartrate 25 MG TAB PO SCH ×2 (08:12→21:37)
[2021-03-11] MEDS: Hydrocortisone Sod Succ/PF 100 mg/2 ml Vial IVP SCH ×2 (08:13→21:37)
[2021-03-11] MEDS: Acetaminophen 650 MG/20.3 ML UDCUP PER TUBE PRN ×3 (09:35→21:36)
[2021-03-11 10:44] LABS: Bacteria/HPF 1+ HPF (None Seen); Bilirubin Negative (Negative); Blood, Urine 2+ (Negative); Clarity Turbid (Clear); Glucose, Urine (Dipstick) Normal (Negative); Ketone, Urine Negative (Negative); Leukocyte 25 Leu/uL (Negative); Nitrite Negative (Negative); Protein, Urine (Dipstick) 50 mg/dL (Neg-Trace); Specific Gravity, Urine 1.024 (1.002-1.036); Squamous Epithelial 0-3 HPF (0-3); Urobilinogen Normal mg/dL (Less than 2); pH, Urine 5.5 (5.0-9.0)
[2021-03-11 10:45] LABS: Urine Culture Reflex Yes Yes
[2021-03-11] MEDS: Morphine 4 MG/ML VIAL SLOW IVP PRN (13:31)
[2021-03-11] MEDS: Fluconazole In NaCl,Iso-Osm 400 MG in Premix Bag 1 BAG IVPB SCH (21:36)
[2021-03-12] MEDS: Morphine 4 MG/ML VIAL SLOW IVP PRN ×2 (03:00→09:04)
[2021-03-12 04:54] LABS: Hemoglobin 8.6 g/dL (14.0-18.0); Mean Corpuscular HGB CONC 30.6 g/dL (32.0-36.0); Mean Corpuscular Volume 97.8 fL (78.0-98.0); Mean Platelet Volume 8.8 fL (7.4-10.4); Platelet Count 266 thou/uL (130-400); Red Blood Cell (RBC) Count 2.87 mill/uL (4.70-6.10); White Blood Cell (WBC) Count 20.9 thou/uL (4.8-10.8)
[2021-03-12 04:55] LABS: Band 12 % (5-11); Lymphocytes 7 % (21-51); MDiff Complete? YES; Metamyelocyte 4 % (0-0); Monocytes 2 % (0-10); Myelocyte 5 % (0-0); Neutrophil 69 % (42-75); Nucleated RBC 2 % (0); Polychromasia SLIGHT = 2-3 cells (100X) (0-2/hpf)
[2021-03-12] MEDS: Meropenem 1 GM in Sodium Chloride 0.9% 100 ML IVPB SCH (05:48)
[2021-03-12 07:35] VITALS: TEMP 97.3
[2021-03-12] MEDS: Tamsulosin HCl 0.4 MG CAP PO SCH (07:52)
[2021-03-12] MEDS: Cholecalciferol 1,000 UNITS (25 MCG) TAB PO SCH (07:52)
[2021-03-12] MEDS: Metoprolol Tartrate 25 MG TAB PO SCH (07:53)
[2021-03-12] MEDS: FLUoxetine HCl 20 MG/5 ML UDCUP PER TUBE SCH (07:53)
[2021-03-12] MEDS: NPH, Human Insulin Isophane 300 UNIT/3 ML VIAL SC SCH (07:53)
[2021-03-12] MEDS: Hydrocortisone Sod Succ/PF 100 mg/2 ml Vial IVP SCH (07:53)
[2021-03-12] MEDS ORDERED: Potassium Chloride 20 MEQ TAB PO SCH (08:00)
[2021-03-12] MEDS ORDERED: Aspirin Chewable 81 MG TAB PO SCH (09:00)
[2021-03-12] MEDS ORDERED: Furosemide 20 MG TAB PO SCH (09:00)
[2021-03-12] MEDS ORDERED: Pantoprazole 40 MG GRANULES PACKET PO SCH (09:00)
[2021-03-12] MEDS ORDERED: Amiodarone 200 MG TAB PO SCH (09:00)
== END 2021-03-12 09:18 | DRG 3 ==
LOC: SURG A 02-08 06:09 → CCU 02-12 12:43 → IMCU/EMU 03-10 06:38
PROVIDERS: ADMIT Surgery; ATTEND Family Medicine
PROC: 0DBB0ZZ Excision of Ileum, Open Approach (ICD-10-PCS; principal; 2021-02-08)
PROC: 02HV33Z Insertion of Infusion Device into Superior Vena Cava, Percutaneous Approach (ICD-10-PCS; 2021-02-11)
PROC: 3E04317 Introduction of Other Thrombolytic into Central Vein, Percutaneous Approach (ICD-10-PCS; 2021-02-11)
PROC: 5A09357 Assistance with Respiratory Ventilation, Less than 24 Consecutive Hours, Continuous Positive Airway Pressure (ICD-10-PCS; 2021-02-12)
PROC: 3E0436Z Introduction of Nutritional Substance into Central Vein, Percutaneous Approach (ICD-10-PCS; 2021-02-12)
PROC: 5A1955Z Respiratory Ventilation, Greater than 96 Consecutive Hours (ICD-10-PCS; 2021-02-13)
PROC: 0BH17EZ Insertion of Endotracheal Airway into Trachea, Via Natural or Artificial Opening (ICD-10-PCS; 2021-02-13)
PROC: 0W9B30Z Drainage of Left Pleural Cavity with Drainage Device, Percutaneous Approach (ICD-10-PCS; 2021-02-13)
PROC: 03HY32Z Insertion of Monitoring Device into Upper Artery, Percutaneous Approach (ICD-10-PCS; 2021-02-13)
PROC: 3E043XZ Introduction of Vasopressor into Central Vein, Percutaneous Approach (ICD-10-PCS; 2021-02-13)
PROC: 5A12012 Performance of Cardiac Output, Single, Manual (ICD-10-PCS; 2021-02-13)
PROC: 5A2204Z Restoration of Cardiac Rhythm, Single (ICD-10-PCS; 2021-02-13)
PROC: 0W9B30Z Drainage of Left Pleural Cavity with Drainage Device, Percutaneous Approach (ICD-10-PCS; 2021-02-14)
PROC: 0W9930Z Drainage of Right Pleural Cavity with Drainage Device, Percutaneous Approach (ICD-10-PCS; 2021-02-14)
PROC: 0DJ08ZZ Inspection of Upper Intestinal Tract, Via Natural or Artificial Opening Endoscopic (ICD-10-PCS; 2021-02-15)
PROC: 30233N1 Transfusion of Nonautologous Red Blood Cells into Peripheral Vein, Percutaneous Approach (ICD-10-PCS; 2021-02-24)
PROC: 5A0935A Assistance with Respiratory Ventilation, Less than 24 Consecutive Hours, High Flow/Velocity Cannula (ICD-10-PCS; 2021-02-25)
PROC: 5A1955Z Respiratory Ventilation, Greater than 96 Consecutive Hours (ICD-10-PCS; 2021-02-26)
PROC: 0B9F8ZX Drainage of Right Lower Lung Lobe, Via Natural or Artificial Opening Endoscopic, Diagnostic (ICD-10-PCS; 2021-02-26)
PROC: 0B9D8ZX Drainage of Right Middle Lung Lobe, Via Natural or Artificial Opening Endoscopic, Diagnostic (ICD-10-PCS; 2021-02-26)
PROC: 0B928ZZ Drainage of Carina, Via Natural or Artificial Opening Endoscopic (ICD-10-PCS; 2021-02-26)
PROC: 0B918ZZ Drainage of Trachea, Via Natural or Artificial Opening Endoscopic (ICD-10-PCS; 2021-02-26)
PROC: 02HV33Z Insertion of Infusion Device into Superior Vena Cava, Percutaneous Approach (ICD-10-PCS; 2021-03-01)
PROC: B5181ZA Fluoroscopy of Superior Vena Cava using Low Osmolar Contrast, Guidance (ICD-10-PCS; 2021-03-01)
PROC: B548ZZA Ultrasonography of Superior Vena Cava, Guidance (ICD-10-PCS; 2021-03-01)
PROC: 0B110F4 Bypass Trachea to Cutaneous with Tracheostomy Device, Open Approach (ICD-10-PCS; 2021-03-03)
PROC: 0B21XFZ Change Tracheostomy Device in Trachea, External Approach (ICD-10-PCS; 2021-03-11)
DX: Z43.2 Encounter for attention to ileostomy (principal); J95.811 Postprocedural pneumothorax; B37.7 Candidal sepsis; J96.01 Acute respiratory failure with hypoxia; E43 Unspecified severe protein-calorie malnutrition; I49.01 Ventricular fibrillation; I46.2 Cardiac arrest due to underlying cardiac condition; G93.41 Metabolic encephalopathy; R57.0 Cardiogenic shock; I50.33 Acute on chronic diastolic (congestive) heart failure; R65.20 Severe sepsis without septic shock; J15.0 Pneumonia due to Klebsiella pneumoniae; K65.8 Other peritonitis; J69.0 Pneumonitis due to inhalation of food and vomit; K29.71 Gastritis, unspecified, with bleeding; E87.2 Acidosis; K63.2 Fistula of intestine; E87.0 Hyperosmolality and hypernatremia; D62 Acute posthemorrhagic anemia; M48.56XA Collapsed vertebra, not elsewhere classified, lumbar region, initial encounter for fracture; G72.81 Critical illness myopathy; Z99.11 Dependence on respirator [ventilator] status; F19.20 Other psychoactive substance dependence, uncomplicated; E27.3 Drug-induced adrenocortical insufficiency; T81.83XA Persistent postprocedural fistula, initial encounter; N17.9 Acute kidney failure, unspecified; Z20.822 Contact with and (suspected) exposure to COVID-19; Z66 Do not resuscitate; Z23 Encounter for immunization; L65.9 Nonscarring hair loss, unspecified; E78.5 Hyperlipidemia, unspecified; N40.0 Benign prostatic hyperplasia without lower urinary tract symptoms; I25.10 Atherosclerotic heart disease of native coronary artery without angina pectoris; M81.0 Age-related osteoporosis without current pathological fracture; L20.9 Atopic dermatitis, unspecified; E86.0 Dehydration; K76.89 Other specified diseases of liver; K31.89 Other diseases of stomach and duodenum; I11.0 Hypertensive heart disease with heart failure; L30.9 Dermatitis, unspecified; E88.09 Other disorders of plasma-protein metabolism, not elsewhere classified; R73.9 Hyperglycemia, unspecified; E87.6 Hypokalemia; E83.39 Other disorders of phosphorus metabolism; E83.42 Hypomagnesemia; F41.9 Anxiety disorder, unspecified; T50.1X5A Adverse effect of loop [high-ceiling] diuretics, initial encounter; R13.10 Dysphagia, unspecified; T38.0X5A Adverse effect of glucocorticoids and synthetic analogues, initial encounter; Y84.8 Other medical procedures as the cause of abnormal reaction of the patient, or of later complication, without mention of misadventure at the time of the procedure; I48.0 Paroxysmal atrial fibrillation; T81.82XA Emphysema (subcutaneous) resulting from a procedure, initial encounter; Z78.1 Physical restraint status; Z87.442 Personal history of urinary calculi; Z90.89 Acquired absence of other organs; Z90.49 Acquired absence of other specified parts of digestive tract; Z95.5 Presence of coronary angioplasty implant and graft; Z82.49 Family history of ischemic heart disease and other diseases of the circulatory system; Z82.3 Family history of stroke; Z88.1 Allergy status to other antibiotic agents; Z88.5 Allergy status to narcotic agent; Z88.8 Allergy status to other drugs, medicaments and biological substances; Z68.20 Body mass index [BMI] 20.0-20.9, adult; Z79.52 Long term (current) use of systemic steroids
CPT/HCPCS: 36415; 36416; 36430; 36569; 36600; 71045; 74018; 74177; 80048; 80053; 80061; 80069; 80202; 81001; 82306; 82570; 82728; 82805; 83540; 83550; 83605; 83735; 83880; 84100; 84134; 84145; 84156; 84300; 84484; 84540; 85007; 85025; 85027; 85610; 85730; 86850; 86900; 86901; 87040; 87070; 87071; 87077; 87086; 87103; 87106; 87186; 87205; 90471; 90662; 93005; 93010; 93306; 94002; 94003; 94640; 94660; C1751; C9113; G0008; J0171; J0282; J0360; J0694; J1100; J1160; J1170; J1200; J1450; J1642; J1644; J1650; J1720; J1815; J1885; J1940; J2001; J2060; J2185; J2248; J2250; J2270; J2310; J2354; J2370; J2405; J2543; J2550; J2704; J3010; J3370; J3475; J3480; J3490; J7030; J7050; J7070; J7620; P9016; P9047; Q9967; S0020; S0028; U0002; U0003; U0005